=== PATIENT | female | born 1980 | race Caucasian/White ===

== ENCOUNTER 2017-08-04 14:14 | Inpatient (IN) | payer BC ==
--- OUTSIDE RECORDS SUMMARY | 2017-08-04 14:17 | XMS | Clinical Summary ---
:1980 Author Organization [facility] Address [address] [place] [address] Phone Care Team Providers Name Role Phone Dean Vazquez Primary Care Provider tel Allergies Active Allergy Reactions Severity Noted Date Comments Other 01/11/2017 K flex IV Contrast Propofol Hives 02/10/2017 And itching Vancomycin Hives 01/11/2017 Vomiting, hives Ondansetron Hcl Hives,GI Intolerance 01/11/2017 Itching, dizziness Iodine And Iodide Rash Low 02/26/2017 Per patient has Containing Products reaction to IV contrast, requires premedication with steroids and benadryl Current Medications Prescription Sig. Disp. Refills Start Date End Date Status linaclotide (LINZESS) Take 145 mcg by Active 145 mcg capsule mouth nightly. CREON 12,000-38,000 04/19/2017 Active -60,000 unit capsule,delayed release(DR/EC) capsule CONTOUR NEXT STRIPS TEST BLOOD 11 05/08/2017 Active strip test strips SUGAR QID insulin GLARGINE Inject 24 Units 6 pen 3 06/20/2017 06/20/2018 Active (LANTUS SOLOSTAR) 100 under the skin unit/mL injection nightly. (pen) sitaGLIPtin (JANUVIA) Take 1 tablet 90 tablet 3 06/20/2017 Active 100 MG tablet (100 mg total) by mouth daily. ondansetron (ZOFRAN) TK 1 T PO PRN 1 07/01/2017 Active 4 MG tablet pantoprazole TK 1 T PO BID 11 07/01/2017 Active (PROTONIX) 40 MG EC tablet insulin regular Inject 18 Units 40 mL 3 07/04/2017 07/04/2018 Active (HumuLIN R U-100) 100 under the skin unit/mL injection 3 (three) times a day before meals. insulin 3 month supply 270 Syringe 3 07/04/2017 Active syringe,safetyneedle 0.5 mL 30 gauge x 5/16" syringe Active Problems Problem Noted Date Diabetes mellitus associated with pancreatic disease 04/18/2017 Depressive disorder 03/24/2017 Anxiety disorder due to general medical condition with panic attack 03/24/2017 Hypomagnesemia 02/28/2017 Hypophosphatemia 02/25/2017 Hypokalemia 02/25/2017 Sepsis 02/25/2017 Hypocalcemia 02/25/2017 Agitation 02/22/2017 Post-operative pain 02/22/2017 Hypotension 02/22/2017 Respiratory insufficiency 02/22/2017 Electrolyte and fluid disorder 02/22/2017 Leukocytosis 02/22/2017 Seizure 02/22/2017 History of pancreatectomy 02/21/2017 Acute blood loss anemia 02/20/2017 Acute deep vein thrombosis (DVT) of brachial vein of left upper extremity 07/2017 Abdominal pain 02/09/2017 Nausea 02/09/2017 S/P cholecystectomy 02/09/2017 S/P splenectomy 02/09/2017 Constipation 02/09/2017 Pancreatic stones 02/09/2017 Chronic pancreatitis 01/11/2017 Last Assessment & Plan: Complicated history. She had abdominal pain and underwent emperic cholecystectomy without relief. 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 Had another bout of pain and had a PD stent placed, which migrated. She then had a distal pancreatectomy and splenectomy. Since then, she has had chronic pain with intermittent relief to pd stentingand celiac block. Weight is stable. It is not clear to me that she has chronic pancreatitis. Now with multiple stents placed, she may have stent related chronic changes. She does not have DM or maldigestion. I suspect her symptoms are secondary to functional abdominal pain with secondary pain from prior pancreas surgery. Will obtain MRI and plan for EUS to assess for minimal change CP. Total pancreatectomy is a consideration if she meets criteria, however, I am skeptical that imaging will reveal chronic pancreatitis Resolved Problems Problem Noted Date Resolved Date Chronic idiopathic constipation 01/11/2017 02/09/2017 Last Assessment & Plan: Long standing. Hard stools. Persist even off narcotics. 1bm per week. Will start linzess. Previously tried miralax with modest relief. Bloating symptom 01/11/2017 02/09/2017 Last Assessment & Plan: Long standing. Will give a trial of xifaxin and Align Encounters Date Type Specialty Care Team Description 07/05/2017 Telephone Internal Medicine Ani Shane 07/04/2017 Office Visit Endocrinology Christopher Fuentes Diabetes bren Cedillo MD associated with pancreatic disease (Primary Dx) 06/30/2017 Telephone Endocrinology Christopher Fuentes MD 06/20/2017 Office Visit Endocrinology Christopher Fuentes Diabetes mellitus MD Mamadou associated with pancreatic disease (Primary Dx) 06/16/2017 Telephone Internal Medicine Jamshid Dykes MA 05/12/2017 Procedure Pass Gastroenterology 05/11/2017 Telephone Gastroenterology Libertad Kellogg RN 05/09/2017 Telephone Gastroenterology Amanda Major MA 05/05/2017 Hospital Encounter Gastroenterology Rip Osborne Pain of upper OMD abdomen (Primary Dx) 05/05/2017 Anesthesia Event Gastroenterology Travis Blankenship MD 05/05/2017 Procedure Pass Gastroenterology 05/05/2017 Surgery Gastroenterology Rip Osborne EGD w/bx using cold MD Tomas forceps from Last 3 Months Family History Medical History Relation Name Comments Diabetes Father No Known Problems Mother Relation Name Status Comments Father Mother Social History Tobacco Use Types Packs/Day Years Used Date Never Smoker Smokeless Tobacco: Never Used Alcohol Use Drinks/Week oz/Week Comments No Sex Assigned at Date Recorded Not on file Last Filed Vital Signs Vital Sign Reading Time Taken Blood Pressure 134/88 07/04/2017 11:16 AM CDT Pulse 94 07/04/2017 11:16 AM CDT Temperature 36.9 C (98.4 F) 07/04/2017 11:16 AM CDT Respiratory Rate 34 05/05/2017 10:30 AM CDT Oxygen Saturation 99% 07/04/2017 11:16 AM CDT Inhaled Oxygen Concentration - - Weight 43 kg (94 lb 12.8 oz) 07/04/2017 11:16 AM CDT Height 157.5 cm (5' 2") 06/20/2017 11:20 AM CDT Body Mass Index 17.34 07/04/2017 11:16 AM CDT Plan of Treatment Date Type Specialty Care Team Description 09/19/2017 Office Visit Endocrinology Christopher Fuentes MD [address] [facility] [address] [place], [place] [id number] Health Maintenance Due Date Last Done Comments FOOT EXAM 1990 OPHTHALMOLOGY EXAM 1990 URINE MICROALBUMIN 1990 PAP SMEAR 2001 INFLUENZA VACCINE 06/13/2017 Implants Implanted Type Area Fire Investigation Lieutenant Device Expiration Model / Identifier Date Serial / Lot Bill Pancreatic Stent Set (Gepd-5-7) Stent, N/A: N/A [employer] - GEPD-5-7 / Implanted:Qty: 1 on 02/14/2017 by Kofi Galarza MD Biliary ENDOSCOPY / ([employer]) [id number] Stent Pncrtc Zimmon 5fr 6cm - [id number] Surgical N/A: N/A [employer] END[employer]COPY 03/29/2019 [id number] / Implanted:02/14/2017 (Quantity not on file) Stents / [id number] Procedures Procedure Name Priority Date/Time Associated Diagnosis Comments EGD w/bx using cold 05/05/2017 9:00 AM Acute epigastric pain forceps CDT from Last 3 Months Results Surgical pathology request (05/05/2017 9:59 AM) Component Value Ref Range Surgical pathology report See link below for PDF Lab Report Specimen Performing Laboratory [facility] DEPARTMENT OF PATHOLOGY AND GENOMIC MEDICINE [address] [place] [phone] POC glucose (05/05/2017 8:20 AM) Component Value Ref Range POC glucose 243(H) 65 - 99 mg/dL Comment: Meter ID: [id number] Exotic Dancer: Brandie Mendoza V Specimen Performing Laboratory [facility] DEPARTMENT OF PATHOLOGY AND GENOMIC MEDICINE [address] [place] [phone] from Last 3 Months Insurance Payer Benefit Plan / Group Subscriber ID Type Phone Address BCBS BCBS CHOICE PPO/FEDERAL EMPL PPO [id number] PPO
[2017-08-04 14:57] LABS: #Basophils 0.1 thou/uL (0.0-0.2); #Lymphocytes 3.1 thou/uL (1.20-3.40); #Monocytes 0.3 thou/uL (0.11-0.59); #Neutrophils 5.7 thou/uL (1.40-6.50); %Basophils 0.6 % (0.0-1.0); %Eosinophils 0.3 % (0.0-10.0); %Lymphocytes 33.9 % (21.0-51.0); %Monocytes 3.1 % (0.0-10.0); Hematocrit 40.6 % (36.0-47.0); Mean Platelet Volume 9.7 fL (7.4-10.4); Red Blood Cell (RBC) Count 4.65 mill/uL (4.20-5.40); White Blood Cell (WBC) Count 9.2 thou/uL (4.8-10.8)
[2017-08-04 15:13] LABS: ALT (SGPT) 56 U/L (8-55); AST (SGOT) 51 U/L (5-34); Alkaline Phosphatase 87 U/L (40-150); Anion Gap 23 mmol/L (10-20); BUN (Urea Nitrogen) 6 mg/dL (7.0-18.7); Bilirubin, Total 0.3 mg/dL (0.2-1.2); Calc. Creatinine Clearance 0 mL/min (70-130); Calcium 8.8 mg/dL (7.8-10.44); Carbon Dioxide 16 mmol/L (22-29); Chloride 91 mmol/L (98-107); Estimated GFR-MDRD 57; Globulin 3.1 g/dL (2.4-3.5); Lipase 4 U/L (8-78); Protein, Total 6.8 g/dL (6.0-8.3)
[2017-08-04] MEDS ORDERED: Pantoprazole 40 MG VIAL ONE (15:17)
[2017-08-04] MEDS ORDERED: Ondansetron HCl/PF 4 MG/2 ML Vial ONE ×2 (15:17→16:44)
[2017-08-04 15:29] LABS: Lactic Acid - Sepsis 1.6 mmol/L (0.5-2.2)
[2017-08-04 15:43] LABS: Troponin I Less than 0.010 ng/mL (< 0.028)
[2017-08-04] MEDS ORDERED: Insulin Regular 100 units/100 ml in NS IVPB ONE (15:45)
[2017-08-04 17:17] LABS: Anion Gap 9 mmol/L (-14-95); T. Carbon Dioxide 17.4 mmol/L (1.0-85.0); pH (Venous) 7.263 (7.35-7.45); vO2 Saturation-calc 34.1 % (0.0-100.0)
--- NOTE | 2017-08-04 18:24 | CT ---
CT OF THE ABDOMEN AND PELVIS WITHOUT IV CONTRAST: 08/04/17 COMPARISON: Prior CT of the abdomen without contrast dated 08/11/15 and MR of the abdomen dated 02/01/17. FINDINGS: ABDOMEN: The lung bases are clear. There is a small amount of pneumobilia seen within the left hepatic lobe. The gallbladder is surgica lly absent. There is stippled solid densities seen within the anterior pararenal space adjacent to t he second portion of the duodenum most consistent with patient's history of a pancreatic transplant. There is stippled calcifications within the transplant. [place] pancreatic tissue is no longer ident ified. No drainable fluid collection is evident. There is stable left renal cyst. No hydronephrosis is evident. No renal calculus is noted. The splee n is surgically absent. There are mild vascular calcifications noted involving the abdominal aorta. No free fluid or enlarged lymph nodes are evident. PELVIS: The bladder is normal appearing. There are multiple small phleboliths within the lower pelvis. There is a prominent amount of retained stool within the colon as well as the rectum. The appendix is not definitely identified. No free fluid is evident. The partially opacified small bowel is of normal c aliber. OSSEOUS STRUCTURES: No definite acute osseous abnormality is evident. There is mild scattered degenerative and osteoarth ritic change. IMPRESSION: 1. Postsurgical change of a pancreatic transplant, pancreatectomy, cholecystectomy and splenect mirela. 2. Small amount of pneumobilia is seen within the left hepatic lobe which is likely postprocedu ral in nature. 3. There is a prominent amount of retained stool within the colon and rectum. Recommend correla tion for constipation. 4. Nonvisualization of the appendix with surgical clips within the right lower quadrant of the abdomen may reflect surgical removal of the appendix. Recommend correlation with patient's history. POS: TOMER
[2017-08-04] MEDS ORDERED: Lorazepam 2 MG/ML VIAL ONE (18:55)
[2017-08-04] MEDS ORDERED: Dextrose 5 %-0.45 % NaCl 1,000 ML IV PRN (20:28)
[2017-08-04] MEDS ORDERED: NS 0.9% w/ 20 MEQ KCL 1,000 ML IV PRN ×2 (20:28)
[2017-08-04] MEDS ORDERED: Sodium Chloride 0.9% 1,000 ML IV PRN ×4 (20:28)
[2017-08-04] MEDS ORDERED: CCU Electrolyte Replacement 1 EACH IVPB ONE (20:28)
--- OUTSIDE RECORDS SUMMARY | 2017-08-04 20:28 | XMS | Clinical Summary ---
:1980 Author Organization [facility] Address [address] [place] [address] Phone Care Team Providers Name Role Phone [...] 09/19/2017 Office Visit Endocrinology Christopher Fuentes MD [address] [facility] [address] [place], [place] [phone] Health Maintenance Due Date Last Done Comments FOOT EXAM 1990 OPHTHALMOLOGY EXAM 1990 URINE MICROALBUMIN 1990 PAP SMEAR 2001 INFLUENZA VACCINE 06/13/2017 Implants Implanted Type Area Senior Java Developer Device Expiration Model / Identifier Date Serial / Lot Bill Pancreatic Stent Set (Gepd-5-7) Stent, N/A: N/A [employer] - GEPD-5-7 / Implanted:Qty: 1 on 02/14/2017 by Kofi Galarza MD Biliary ENDOSCOPY / ([employer]) [id number] Stent Pncrtc Zimmon 5fr 6cm - [id number] Surgical N/A: N/A [employer] ENDOSCOPY 03/29/2019 [id number] / Implanted:02/14/2017 (Quantity not on file) Stents / [id number] Procedures Procedure Name Priority Date/Time Associated Diagnosis Comments EGD w/bx using cold 05/05/2017 9:00 AM Acute epigastric pain forceps CDT from Last 3 Months Results Surgical pathology request (05/05/2017 9:59 AM) Component Value Ref Range Surgical pathology report See link below for PDF Lab Report Specimen Performing Laboratory [facility] DEPARTMENT OF PATHOLOGY AND GENOMIC MEDICINE [address] [place] [phone] POC glucose (05/05/2017 8:20 AM) Component Value Ref Range POC glucose 243(H) 65 - 99 mg/dL Comment: Meter ID: [id number] Academic Administrator: Brandie Mendoza V Specimen Performing Laboratory [facility] DEPARTMENT OF PATHOLOGY AND GENOMIC MEDICINE [address] [place] [id number] from Last 3 Months Insurance Payer Benefit Plan / Group Subscriber ID Type Phone Address BCBS BCBS CHOICE PPO/FEDERAL EMPL PPO [id number] PPO
[2017-08-04] MEDS ORDERED: Potassium Phosphate 12 MMOL in Sodium Chloride 0.9% 250 ML 250 ML IV PRN (20:32)
[2017-08-04] MEDS ORDERED: Potassium Chloride 40 MEQ in Premix Bag 1 BAG IVPB PRN (20:32)
[2017-08-04] MEDS ORDERED: Potassium Phosphate 15 MMOL in Sodium Chloride 0.9% 250 ML 250 ML IV PRN (20:32)
[2017-08-04] MEDS ORDERED: Potassium Phosphate 9 MMOL in Sodium Chloride 0.9% 100 ML IVPB PRN (20:32)
[2017-08-04] MEDS ORDERED: Potassium Chloride 20 MEQ TAB PO PRN (20:32)
[2017-08-04] MEDS ORDERED: Potassium Chloride 40 MEQ in Sodium Chloride 0.9% 250 ML 250 ML IVPB PRN (20:32)
[2017-08-04] MEDS ORDERED: Magnesium Oxide 400 MG TAB PO PRN ×2 (20:32)
[2017-08-04] MEDS ORDERED: CCU ELECTROLYTE REPLACEMENT PROTOCOL FS PRN (20:32)
[2017-08-04] MEDS ORDERED: Magnesium 2 GM/NS 0.9% 100 ML 2 GM in Premix Bag 1 BAG IVPB PRN (20:32)
[2017-08-04] MEDS ORDERED: Morphine Sulfate 2 MG/ML SYRINGE SLOW IVP PRN (20:33)
[2017-08-04] MEDS ORDERED: Ondansetron HCl/PF 4 MG/2 ML Vial SLOW IVP PRN (20:33)
[2017-08-04 21:24] LABS: Anion Gap 13 mmol/L (10-20); BUN (Urea Nitrogen) Less than 4 mg/dL (7.0-18.7); Calc. Creatinine Clearance 0 mL/min (70-130); Carbon Dioxide 20 mmol/L (22-29); Chloride 106 mmol/L (98-107); Estimated GFR-MDRD Greater than 90
[2017-08-04] MEDS: D5 1/2 NS w/20 mEq KCL 1,000 ML IV PRN (22:11)
--- NOTE | 2017-08-04 23:44 | HP ---
HISTORY OF PRESENT ILLNESS: Mrs. Alamo is 36-year-old woman. She came to the ER earlier today with complaint of abdominal pain and rectal bleeding. According to the patient, this problem started about 2 weeks ago, have been getting worse over a time. In the ER, she was evaluated and wa s found to be in DKA. She is being admitted for evaluation and management. She denied any fever. Denies coughing. Denies dysuria. PAST MEDICAL HISTORY: Remarkable for diabetes mellitus, she was diagnosed with insulin-requiring di abetes mellitus about 4 months ago. According to the patient, she described what appeared to be his tory of chronic pancreatitis complicating an ERCP with stent placement and later, she underwent panc reatectomy and also she had autologous islet cell transplant. She denies any history of hypertensio n. Denies heart disease. Denies lung disease. Denies liver disease. PAST SURGICAL HISTORY: Besides pancreatectomy and islet cell transplant, include splenectomy, appen dectomy, and also cholecystectomy. ALLERGIES: IV IODINE, PROPOFOL, and KEFLEX. SOCIAL HISTORY: She denies any history of cigarette smoking. Denies ETOH abuse. Denies drug abuse . FAMILY HISTORY: Reviewed and is not contributory. MEDICATIONS PRIOR TO ADMISSION: She was on [place], Protonix, and insulin. REVIEW OF SYSTEMS: GENERAL: Denies any fever. Admits to generalized weakness. HEENT: No headache, no ocular pain, no sore throat, no rhinorrhea, no earache, no epistaxis. NECK: No neck pain, no neck stiffness. CARDIOVASCULAR: No shortness of breath. No chest pain. PULMONARY: No coughing. GASTROINTESTINAL: Admits to abdominal pain and also rectal bleeding. She claims that she has been passing bright red stools for the last 2 weeks or so. GENITOURINARY: No dysuria, no hematuria. ENDOCRINOLOGY: No heat or cold intolerance. She admits to polyuria and polydipsia. MUSCULOSKELETAL: Denies arthralgia. HEMATOLOGY: Denies ecchymoses. SKIN: No rash. No itching. LYMPHATIC: No palpable lymphadenopathy, no painful lymphadenopathy. ALLERGIES: No hayfever. NEUROLOGIC: She claims that she had seizure twice; however, she has not been on medication. PSYCHIATRIC: She denies anxiety. Denies depression. PHYSICAL EXAMINATION: GENERAL: At the current time, she is alert, oriented, sick looking. VITAL SIGNS: Her latest vital signs show temperature of 98.1, pulse rate 121, respiratory rate 16, and blood pressure 116/81. HEENT: Head is normocephalic and atraumatic. Both her pupils are equal and reactive. Ears and nos e normal. Oral mucosa is dry. Pharyngeal area is clear. She has also very poor skin turgor. NECK: Supple. There is no distention of the jugular vein. No lymphadenopathy felt. Thyroid gland not palpable. There is no carotid bruit. CHEST: Symmetrical with regular S1, S2. LUNGS: Clear. ABDOMEN: Soft. Bowel sounds heard. I could not appreciate any organomegaly. She does have some t enderness on palpation of the left lower quadrant. Limbs are anatomically normal. EXTREMITIES: She has no edema of the lower extremities. NEUROLOGIC: Neurologically, she moves all extremities. LABORATORY DATA: Her CBC show a WBC of 9.2, hemoglobin of 12.3, hematocrit of 40.6, MCV of 87, and platelet of 419. Chemistry and electrolytes show sodium of 125, potassium of 5, chloride 91, CO2 16 , BUN 6, creatinine 1.08, glucose 726, calcium 8.8, AST 51, ALT 56, alkaline phosphatase 87, albumin 3.7, total protein 6.8, bilirubin 0.3, amylase is 37, lipase . Beta-hCG is negative, ketone i s positive. ASSESSMENT AND PLAN: This is a 36-year-old woman with previous autologous islet cell honeycutt splant, insulin requiring diabetes mellitus, who is being admitted with DKA. Please see orders.
[2017-08-05 01:03] LABS: Anion Gap 14 mmol/L (10-20); BUN (Urea Nitrogen) Less than 4 mg/dL (7.0-18.7); Calc. Creatinine Clearance 85 mL/min (70-130); Calcium 8.1 mg/dL (7.8-10.44); Carbon Dioxide 17 mmol/L (22-29); Chloride 106 mmol/L (98-107); Estimated GFR-MDRD Greater than 90
[2017-08-05 05:06] LABS: Anion Gap 11 mmol/L (10-20); BUN (Urea Nitrogen) Less than 4 mg/dL (7.0-18.7); Calc. Creatinine Clearance 91 mL/min (70-130); Calcium 7.9 mg/dL (7.8-10.44); Carbon Dioxide 18 mmol/L (22-29); Chloride 109 mmol/L (98-107); Estimated GFR-MDRD Greater than 90
[2017-08-05] MEDS: D5 1/2 NS w/20 mEq KCL 1,000 ML IV PRN (05:22)
[2017-08-05 05:41] LABS: #Basophils 0.1 thou/uL (0.0-0.2); #Eosinphils 0.1 thou/uL (0.0-0.7); #Lymphocytes 5.3 thou/uL (1.20-3.40); #Monocytes 0.7 thou/uL (0.11-0.59); #Neutrophils 6.8 thou/uL (1.40-6.50); %Basophils 0.7 % (0.0-1.0); %Eosinophils 0.9 % (0.0-10.0); %Lymphocytes 40.3 % (21.0-51.0); %Monocytes 5.6 % (0.0-10.0); Hematocrit 33.7 % (36.0-47.0); Mean Platelet Volume 9.2 fL (7.4-10.4); Red Blood Cell (RBC) Count 3.91 mill/uL (4.20-5.40)
[2017-08-05] MEDS ORDERED: DC Electrolyte Protocol FS ONE (09:12)
[2017-08-05] MEDS ORDERED: Pantoprazole 40 MG VIAL IVP SCH (09:15)
[2017-08-05] MEDS ORDERED: Ondansetron ODT 4 MG TAB PO PRN (09:16)
[2017-08-05] MEDS ORDERED: Senokot 8.6 MG TAB PO PRN (09:16)
[2017-08-05] MEDS ORDERED: Insulin Regular 300 UNITS/3 ML VIAL SC PRN (09:16)
[2017-08-05] MEDS ORDERED: Dextrose 50% Abboject 50 ML SYRINGE SLOW IVP PRN (09:16)
[2017-08-05] MEDS ORDERED: Dextrose 5% in Water 1,000 ML IV PRN (09:16)
[2017-08-05] MEDS ORDERED: Acetaminophen 650 MG Suppository PR PRN (09:16)
[2017-08-05] MEDS ORDERED: Nitroglycerin 0.4 MG TAB (25 Tab Bottle) PO PRN (09:16)
[2017-08-05] MEDS ORDERED: Diabetic Tussin 200 MG/10 ML UDCUP PO PRN (09:20)
[2017-08-05] MEDS ORDERED: Insulin Detemir 100 UNITS/ML 15 UNITS in Pre-Filled Syringe 1 EACH SC SCH ×2 (09:30→21:00)
[2017-08-05] MEDS: 1/2 NS w/KCL 20 mEq 1,000 ML IV SCH ×2 (10:00→19:08)
--- NOTE | 2017-08-05 10:02 | PRG ---
DATE OF SERVICE: 08/05/2017 SUMMARY: A 36-year-old female who was admitted yesterday evening with diabetic ketoacidosis. Her p resenting complaint to the emergency room was bright red blood per rectum. Please refer to the hist ory and physical. SUBJECTIVE: The patient continues to have abdominal discomfort mainly on the left side. She contin ues to have watery stool, which is red in color. There is no sample available; however. She denies any fever or chills. PHYSICAL EXAMINATION: VITAL SIGNS: Temperature 98.3, pulse of 92, respirations 20, blood pressure 112/70, and O2 saturati on 98% on room air. Intake of 4240 and output 2600. GENERAL: A 36-year-old female in mild distress due to abdominal discomfort. NECK: Supple. No JVD. LUNGS: Clear to auscultation bilaterally. No wheezing, rales or rhonchi. HEART: S1 and S2 present. Regular rate and rhythm. No rubs, gallops or murmurs. ABDOMEN: Soft. Mild tenderness on the left side, no rebound or guarding. No costovertebral angle tenderness. EXTREMITIES: No edema or calf tenderness. NEUROLOGIC: Grossly nonfocal. PSYCHIATRIC: Alert, awake, oriented x3, normal affect. Current medications were reviewed. IMAGIN. Telemetry monitoring by my review showed sinus rhythm. 2. CT scan of the abdomen noncontrast done in the emergency room by my review was negative for acut e findings. IMPRESSION: 1. Diabetic ketoacidosis. Her bicarbonate today morning is 18 with blood sugar of 137 on insulin d rip. We will transition her to subcutaneous insulin. We will repeat one more basic metabolic panel now along with magnesium and phosphorus. We will discontinue diabetic ketoacidosis protocol. We w ill also discontinue electrolyte protocol. We will change Accu-Cheks to a.c. and at bedtime. 2. Suspected gastrointestinal bleeding. We will repeat H\T\H. GI will be consulted. We will add proton pump inhibitors. Continue IV fluids. Clear liquids for now. 3. Acute abdominal discomfort of unclear etiology. Probably secondary to #1. We will continue mor phine for pain management. A 2 mg morphine was not sufficient for pain control. We will increase i t to 4 mg for the next 24 hours as needed every 4 hours. We will hold for lethargy, sedation, and r espiratory rate less than 10. 4. Dehydration secondary to #1. 5. Hyponatremia secondary to diabetic ketoacidosis. 6. Anemia, probably secondary to hemodilution versus gastrointestinal blood loss. 7. Metabolic acidosis secondary to diabetic ketoacidosis. Her lactic acid was normal. 8. Abnormal liver function tests of unclear etiology. 9. Suspected mild protein calorie malnutrition. 10. Plan of care was discussed with the patient and she stated understanding.
[2017-08-05 10:36] LABS: Anion Gap 12 mmol/L (10-20); BUN (Urea Nitrogen) Less than 4 mg/dL (7.0-18.7); BUN/Creatinine Ratio 7.14; Calc. Creatinine Clearance 103 mL/min (70-130); Carbon Dioxide 18 mmol/L (22-29); Chloride 108 mmol/L (98-107); Estimated GFR-MDRD Greater than 90; Magnesium 1.5 mg/dL (1.6-2.6); Phosphorus 3.3 mg/dL (2.3-4.7)
[2017-08-05] MEDS ORDERED: Lorazepam 0.5 MG TAB PO PRN (11:30)
[2017-08-05] MEDS ORDERED: Magnesium Sulfate 2 GM in Sodium Chloride 0.9% 100 ML IVPB SCH (11:30)
[2017-08-05] MEDS ORDERED: Magnesium 2 GM/NS 0.9% 100 ML 2 GM in Premix Bag 1 BAG IVPB SCH (12:00)
[2017-08-05] MEDS ORDERED: GoLYTELY 4,000 ml Bottle PO SCH (21:15)
[2017-08-05] MEDS: Pantoprazole 40 MG VIAL IVP SCH (21:47)
[2017-08-05] MEDS: Insulin Detemir 100 UNITS/ML 20 UNITS in Pre-Filled Syringe 1 EACH SC SCH (21:53)
[2017-08-05 22:40] LABS: Bilirubin Negative (Negative); Blood, Urine Small (Negative); Glucose, Urine (Dipstick) Negative (Negative); Ketone, Urine Negative (Negative); Nitrite Negative (Negative); Protein, Urine (Dipstick) Negative (Neg-Trace); Urobilinogen 0.2 mg/dL (0.2-1.0)
[2017-08-05 22:41] LABS: Bacteria/HPF 2+ HPF (None Seen); Hyaline Casts/LPF 0-3 HYALINE CAST LPF (0-3 Hyaline); Squamous Epithelial 0-3 HPF (0-3); WBC/HPF 0-3 HPF (0-3)
--- NOTE | 2017-08-06 00:34 | CON ---
DATE OF CONSULTATION: 08/05/2017 CHIEF COMPLAINT: Abdominal pain. HISTORY OF PRESENT ILLNESS: Ms. Blackwood is a 36-year-old woman, who underwent complete pancreatectomy and islet cell transplant in 02/2017. She was in the hospital for 2 months following that. Prior to that, she had had chronic pancreatitis. She had a distal pancreatectomy back in 2009. She has h ad prior ERCP and pancreatic stents. Since she was discharged from the hospital, she is improved. She states that she has been pain-free for the last month and a half and has no longer had home heal th having to visit her. She has been off pain medications for the last month and a half. Two weeks ago, she had onset of left-sided to diffuse abdominal pain. This is a constant aching pain. This has worsened, so that she came to the hospital for further care yesterday. She has been requiring m orphine to control her pain and asking for higher doses more frequently. CT scan of the abdomen and pelvis in the ER showed a large amount of stool throughout the colon. No other acute inflammatory process was noted. She was noted to be DKA and she was started on insulin drip and has since been d iscontinued with resolution of the DKA and she is now on Levemir with sliding scale insulin. She re ports having up to 15 small volume greasy stools per day. She sees red blood that seems to flow to the surface. She has been taking Creon with her meals. The stool itself has been yellowish-brown. She does have nausea or vomiting. PAST MEDICAL HISTORY: Chronic pancreatitis, idiopathic. She has required pancreatic stenting in th e past. She had partial pancreatectomy in 2009 and complete prostatectomy with islet cell transplan t in 02/2017. She has had a colonoscopy between 2009 and 2014, which she reports was negative. PAST SURGICAL HISTORY: Appendectomy, cholecystectomy, splenectomy, pancreatectomy, and islet cell t ransplant. FAMILY HISTORY: Negative for GI malignancy and pancreatitis. SOCIAL HISTORY: No alcohol or smoking or drugs. ALLERGIES: IODINE, PROPOFOL, KEFLEX. OUTPATIENT MEDICATIONS: Creon, Protonix, insulin. She has been on insulin since her pancreatectomy . CURRENT INPATIENT MEDICATIONS: Insulin, folic acid, and morphine. REVIEW OF SYSTEMS: Negative x10 systems reviewed except as stated in the history of present illness . PHYSICAL EXAMINATION: VITAL SIGNS: Temperature 98.1, pulse 102, blood pressure 121/78. GENERAL: She is in no acute distress. She is alert and oriented x3. HEENT: Eyes have no scleral icterus. Oropharynx is clear without lesions. NECK: No cervical or supraclavicular lymphadenopathy. LUNGS: Clear to auscultation bilaterally. HEART: Regular rate and rhythm without murmur. ABDOMEN: Soft. There is no guarding. Bowel sounds are present. She does report tenderness in the left abdomen; however, when she was distracted and talking, otherwise I could palpate freely. EXTREMITIES: No lower extremity edema. RECTAL: Reveals light brown stool in the rectal vault, which is soft. IMPRESSION: 1. Abdominal pain. This is likely secondary to constipation. She has a large amount of stool thro ughout the colon noted by CT scan. The stool is soft. 2. Fifteen small volume stools per day with hematochezia reported. Her stool itself is light brown by rectal exam. She may be underdosed on the Creon. She is having greasy stools. We will need to rule out Clostridium difficile or colitis. 3. History of chronic pancreatitis, status post pancreatectomy. She likely has significant opioid tolerance. Currently, her pain is likely from the constipation and opioids will just decrease colon ic motility. I would try to minimize opioids as possible. RECOMMENDATIONS: 1. We will give GoLYTELY to clear the constipation. I would follow through with clear liquid diet tomorrow and if we are able to clean her out further with additional GoLYTELY as needed, then we cou ld potentially perform colonoscopy on Monday. She is very resistant to accepting a clear liquid t. Her family brought her solid food this evening. 2. Check stool for C. diff.
[2017-08-06] MEDS: 1/2 NS w/KCL 20 mEq 1,000 ML IV SCH ×3 (02:07→20:36)
[2017-08-06] MEDS: Insulin Regular 300 UNITS/3 ML VIAL SC PRN ×2 (06:04→12:48)
[2017-08-06 06:36] LABS: Anion Gap 13 mmol/L (10-20); BUN (Urea Nitrogen) Less than 4 mg/dL (7.0-18.7); BUN/Creatinine Ratio 6.15; Calc. Creatinine Clearance 86 mL/min (70-130); Calcium 8.4 mg/dL (7.8-10.44); Carbon Dioxide 24 mmol/L (22-29); Chloride 104 mmol/L (98-107); Estimated GFR-MDRD Greater than 90; Magnesium 1.6 mg/dL (1.6-2.6); Phosphorus 3.4 mg/dL (2.3-4.7)
[2017-08-06] MEDS: Insulin Detemir 100 UNITS/ML 20 UNITS in Pre-Filled Syringe 1 EACH SC SCH ×2 (09:51→20:38)
[2017-08-06] MEDS: Folic Acid 1 MG TAB PO SCH (09:52)
[2017-08-06] MEDS: Pantoprazole 40 MG VIAL IVP SCH ×2 (11:22→20:37)
--- NOTE | 2017-08-06 12:15 | PDOC.PN ---
- Subjective Encounter Start Date: 08/06/17 Encounter Start Time: 11:40 Subjective: Feels anxious.. - Objective Resuscitation Status: Resuscitation Status FULL:Full Resuscitation Vital Signs & Weight: Vital Signs (12 hours) Temp Pulse Resp BP BP Pulse Ox 08/06/17 07:59 98.2 F 82 16 08/06/17 07:11 96 08/06/17 07:06 98.3 F 92 20 119/76 99 08/06/17 03:55 98.2 F 82 16 100/69 97 Weight Admit Weight 103 lb 4.8 oz Weight 100 lb 9.6 oz I&O: 08/05/17 08/06/17 08/07/17 06:59 06:59 06:59 Intake Total 4240 2592 Output Total 2600 1800 Balance 1640 792 Result Diagrams: 08/06/17 05:51 08/06/17 05:51 Additional Labs: Accuchecks 08/06/17 08/06/17 08/05/17 11:54 06:03 20:38 POC Glucose 327 H 286 H 161 H 08/05/17 16:46 POC Glucose 103 Phys Exam - Physical Examination HEENT: sclera anicteric Neck: no JVD Respiratory: clear to auscultation bilateral Cardiovascular: RRR Gastrointestinal: soft, non-tender, no distention Musculoskeletal: no edema Neurological: moves all 4 limbs Psychiatric: A&O x 3 Dx/Plan (1) DKA (diabetic ketoacidoses) Code(s): E13.10 - OTH DIABETES MELLITUS WITH KETOACIDOSIS WITHOUT COMA Status : Acute Plan: Increase Levemir. Comment: not in DKA now.. But BS still high. (2) GI bleeding Code(s): K92.2 - GASTROINTESTINAL HEMORRHAGE, UNSPECIFIED Status: Acute Plan: for colonoscopy. Comment: Hb/Hct stable. - Plan -: Increase basal insulin. -: F/u with GI. * .
[2017-08-06] MEDS ORDERED: Lorazepam 0.5 MG TAB PO SCH (12:30)
--- NOTE | 2017-08-06 18:46 | PRG ---
DATE OF SERVICE: 08/06/2017 SUBJECTIVE: Her pain seems to be better controlled today. She is still having greasy stools, but n ot liquidy stools. She states that she is drinking the GoLYTELY; however, she will not allow the nu rses to review her stool and the nurses have not actually observed her drinking the GoLYTELY. The v olume in the jug is decreased. OBJECTIVE: VITAL SIGNS: Temperature 98.2, pulse 92, blood pressure 113/78. GENERAL: She is in no acute distress. LUNGS: Clear to auscultation bilaterally. HEART: Regular rate and rhythm. ABDOMEN: Soft. She reports tenderness in the left lower quadrant. There is no guarding. Bowel so unds are active. EXTREMITIES: No lower extremity edema. LABORATORY DATA: Creatinine 0.65, albumin 2.8. White blood cell count 13.0, hemoglobin 10.3, plate lets 341. IMPRESSION: 1. Abdominal pain and constipation. She had a large amount of stool noted throughout the colon by CT scan. She has soft, greasy stools which she likely has fat malabsorption associated with her cardoza createctomy. She is likely underdosed on the Creon. Clostridium diff stool sample has been request ed; however, there are no results she had, the patient has been reluctant to provide a sample. 2. History of chronic pancreatitis, status post pancreatectomy. 3. Diabetic ketoacidosis on presentation which has resolved. She is on insulin. 4. Hematochezia. RECOMMENDATIONS: 1. She is receiving GoLYTELY to clear the constipation for the abdominal pain as well as clear her colon for colonoscopy planned for tomorrow. The colonoscopy is to evaluate the rectal bleeding. 2. Await stool studies as well.
[2017-08-06] MEDS: Ondansetron HCl/PF 4 MG/2 ML Vial IVP PRN (20:36)
[2017-08-07] MEDS ORDERED: GoLYTELY 4,000 ml Bottle PO SCH (04:00)
[2017-08-07] MEDS: 1/2 NS w/KCL 20 mEq 1,000 ML IV SCH ×2 (04:17→13:51)
[2017-08-07 05:43] LABS: Hematocrit 35.3 % (36.0-47.0)
[2017-08-07 05:59] LABS: Anion Gap 14 mmol/L (10-20); BUN (Urea Nitrogen) 4 mg/dL (7.0-18.7); BUN/Creatinine Ratio 7.02; Calc. Creatinine Clearance 98 mL/min (70-130); Calcium 8.7 mg/dL (7.8-10.44); Carbon Dioxide 26 mmol/L (22-29); Chloride 102 mmol/L (98-107); Estimated GFR-MDRD Greater than 90; Phosphorus 3.9 mg/dL (2.3-4.7)
--- NOTE | 2017-08-07 09:22 | PDOC.PN ---
- Subjective Encounter Start Date: 08/07/17 Encounter Start Time: 09:21 Patient seen and examined. No new complaints. No overnight events feels better colonscopy today. No N/V - Objective Resuscitation Status: Resuscitation Status FULL:Full Resuscitation MAR Reviewed: Yes Vital Signs & Weight: Vital Signs (12 hours) Temp Pulse Resp BP Pulse Ox 08/07/17 08:00 98.3 F 88 16 101/79 99 08/07/17 03:45 98.0 F 93 16 104/68 99 08/07/17 00:00 98.3 F 96 18 107/87 98 Weight Admit Weight 103 lb 4.8 oz Weight 100 lb 9.6 oz I&O: 08/06/17 08/07/17 08/08/17 06:59 06:59 06:59 Intake Total 2592 7900 Output Total 1800 Balance 792 7900 Result Diagrams: 08/07/17 05:04 08/07/17 05:04 Additional Labs: Accuchecks 08/07/17 08/07/17 08/06/17 06:01 01:59 20:36 POC Glucose 116 H 176 H 126 H 08/06/17 08/06/17 16:56 11:54 POC Glucose 119 H 327 H Phys Exam - Physical Examination Constitutional: NAD HEENT: sclera anicteric Neck: supple Respiratory: no wheezing, no rales Cardiovascular: RRR Gastrointestinal: soft Musculoskeletal: no edema Neurological: non-focal, moves all 4 limbs Lymphatic: no nodes Dx/Plan (1) DKA (diabetic ketoacidoses) Code(s): E13.10 - OTH DIABETES MELLITUS WITH KETOACIDOSIS WITHOUT COMA Status : Acute Comment: not in DKA now.. But BS still high. (2) GI bleeding Code(s): K92.2 - GASTROINTESTINAL HEMORRHAGE, UNSPECIFIED Status: Acute Comment: Hb/Hct stable. (3) Chronic pancreatitis Code(s): K86.1 - OTHER CHRONIC PANCREATITIS Status: Chronic - Plan cont current plan of care, plan discussed w/ family * . colonoscopy today. Monitor labs. AM labs DKA resolved continue insulin and monitor BG. Appreciate GI input.
[2017-08-07] MEDS: Folic Acid 1 MG TAB PO SCH (10:36)
--- NOTE | 2017-08-07 11:30 | PRG ---
DATE OF CONSULTATION: 08/07/2017 SUBJECTIVE: Ms. Alamo still had some stable abdominal pain. She appears comfortable. She states t hat she is drinking the GoLYTELY and the volume of the GoLYTELY bottle seems to be decreasing; howev er, it is highly questionable whether or not she is actually drinking it. She had solid food in fro nt of her yesterday that her boyfriend brought in and patient states that she did not drink any of i t; however, the nurse walked in twice while she was chewing. OBJECTIVE: VITAL SIGNS: Temperature 98.3, pulse 88, blood pressure 101/79. GENERAL: She is in no acute distress, awake and alert. LUNGS: Clear to auscultation bilaterally. HEART: Regular rate and rhythm. ABDOMEN: Soft. There is no guarding. Bowel sounds are present. There is some tenderness in the l eft side. Bowel sounds are present. EXTREMITIES: No lower extremity edema. LABORATORY DATA: Her hemoglobin remains stable at 10.9. Creatinine 0.57, glucose 125. IMPRESSION: 1. Abdominal pain and constipation. She had a large amount of stool throughout the colon by CT sca n. She has had soft greasy stools likely with fat malabsorption associated with her pancreatectomy. C. diff was negative. Her abdominal pain appears to be functional. She likely has constipation a s a contributing factor for this. 2. Hematochezia. The patient reported red blood in the stool; however, she has not had overt bleed ing here in the hospital. Her hemoglobin remained stable; however, she is anemic. 3. History of chronic pancreatitis, status post pancreatectomy. 4. Diabetic ketoacidosis on presentation which has resolved. She is on insulin. She had prior isl et cell transplant. RECOMMENDATIONS: 1. If she ultimately takes her prep and is compliant with this then we can follow through with colo noscopy tomorrow. Otherwise, with the lack of overt bleeding and noncompliance and a stable hemoglo bin this could potentially be done as an outpatient. We will continue to try to push the GoLYTELY f or now. Overall, it appears that she has just not really been cooperative with doing this and has c ontinued to eat some solid food potentially. 2. She should be able to taper back or off of the IV opioids given functional abdominal pain and co nstipation. 3. Recommend increasing her dose of Creon once she goes back on a solid diet. 4. Check iron studies.
[2017-08-07 12:04] LABS: Iron 23 ug/dL (50-170)
[2017-08-07] MEDS: Insulin Detemir 100 UNITS/ML 20 UNITS in Pre-Filled Syringe 1 EACH SC SCH ×2 (13:49→21:02)
[2017-08-07] MEDS: Pantoprazole 40 MG VIAL IVP SCH ×2 (13:50→19:57)
[2017-08-07] MEDS: Acetaminophen 325 MG TAB PO PRN (16:26)
[2017-08-08 06:23] LABS: Anion Gap 15 mmol/L (10-20); BUN (Urea Nitrogen) 4 mg/dL (7.0-18.7); Calc. Creatinine Clearance 108 mL/min (70-130); Calcium 8.8 mg/dL (7.8-10.44); Carbon Dioxide 27 mmol/L (22-29); Chloride 102 mmol/L (98-107); Estimated GFR-MDRD Greater than 90
[2017-08-08 06:40] LABS: Hematocrit 37.7 % (36.0-47.0); Hypochromia MODERATE=16-30 cells (100X) (0-5/hpf); Mean Platelet Volume 10.3 fL (7.4-10.4); Neutrophil 34 % (42-75); Reactive Lymphocytes 1 % (0-10); Red Blood Cell (RBC) Count 4.39 mill/uL (4.20-5.40); Toxic Granulation SLIGHT
[2017-08-08] MEDS: Folic Acid 1 MG TAB PO SCH (09:38)
[2017-08-08] MEDS: Pantoprazole 40 MG VIAL IVP SCH ×2 (10:06→21:16)
--- NOTE | 2017-08-08 12:14 | PDOC.PN ---
- Subjective Encounter Start Date: 08/08/17 Encounter Start Time: 12:13 Patient seen and examined. No new complaints. No overnight events. feels good. No N/V or abd pain. No chest pain. - Objective Resuscitation Status: Resuscitation Status FULL:Full Resuscitation Vital Signs & Weight: Vital Signs (12 hours) Temp Pulse Resp BP Pulse Ox 08/08/17 07:34 98.3 F 68 18 08/08/17 07:26 95 08/08/17 03:55 98.3 F 68 18 98/52 L 95 Weight Admit Weight 103 lb 4.8 oz Weight 100 lb 9.6 oz I&O: 08/07/17 08/08/17 08/09/17 06:59 06:59 06:59 Intake Total 7900 1080 Balance 7900 1080 Result Diagrams: 08/08/17 05:01 08/08/17 05:01 Additional Labs: Accuchecks 08/08/17 08/08/17 08/08/17 11:02 06:52 05:44 POC Glucose 139 H 98 70 08/08/17 08/07/17 08/07/17 00:52 20:37 16:20 POC Glucose 94 263 H 253 H Phys Exam - Physical Examination Constitutional: NAD HEENT: sclera anicteric Neck: supple Respiratory: no wheezing, no rales Cardiovascular: RRR Gastrointestinal: soft Musculoskeletal: no edema Neurological: non-focal, moves all 4 limbs Psychiatric: normal affect, A&O x 3 Skin: no rash Dx/Plan (1) DKA (diabetic ketoacidoses) Code(s): E13.10 - OTH DIABETES MELLITUS WITH KETOACIDOSIS WITHOUT COMA Status : Acute Comment: not in DKA now.. But BS still high. (2) GI bleeding Code(s): K92.2 - GASTROINTESTINAL HEMORRHAGE, UNSPECIFIED Status: Acute Comment: Hb/Hct stable. (3) Chronic pancreatitis Code(s): K86.1 - OTHER CHRONIC PANCREATITIS Status: Chronic - Plan plan discussed w/ family * . colonscopy today. Labs stable. She wants to go home. Left message with her transplant team at [place] and not gotten any calls back yet. f/u with GI.
[2017-08-08] MEDS: Insulin Detemir 100 UNITS/ML 20 UNITS in Pre-Filled Syringe 1 EACH SC SCH ×2 (14:30→21:14)
[2017-08-08] MEDS ORDERED: Midazolam HCl 5 mg/5 ml Vial ONE (16:24)
[2017-08-08] MEDS: Insulin Regular 300 UNITS/3 ML VIAL SC PRN (21:15)
--- NOTE | 2017-08-09 00:25 | OP ---
PREOPERATIVE DIAGNOSES: 1. Chronic constipation. 2. Hematochezia. POSTOPERATIVE DIAGNOSES: 1. Redundant colon. 2. Internal hemorrhoids, but no lesions. 3. Hematochezia, likely related to constipation and straining. RECOMMENDATION: Resume low fat diet and pancreatic enzymes. This patient has been on narcotic pain medicine. She seems to be on a bowel regimen with MiraLax and Senokot or one of the new medicine, which has been developed for narcotic-induced constipation. PROCEDURE IN DETAIL: After the patient was informed of the risks, benefits, possible complications of endoscopy including perforation, bleeding, reaction to medication, and aspiration, informed conse nt was obtained. The endoscope was advanced through and rectal exam was performed which was normal. The endoscope was advanced through the anal canal to the cecum and identified the cecum, the appen diceal orifice and the ileocecal valve. The terminal ileum was entered and found to be normal. The colon was full of liquid stool, which was all suctioned away about 2 liters were it was then irriga mary away. The prep was very poor. No polyps, lesions or masses were seen. Rectal exam revealed no abnormalities, no polyps, lesions or strictures or masses were seen. No colitis was seen. The sco pe was removed. The patient tolerated the procedure well with no complications. The patient return ed to recovery room, then brought to the ICU in stable condition.
--- NOTE | 2017-08-09 00:41 | DIS ---
DATE OF ADMISSION: 08/04/2017 DATE OF DISCHARGE: 08/08/2017 DISCHARGE DIAGNOSES: 1. Diabetic ketoacidosis, resolved. 2. 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 3. Abdominal pain, status post colonoscopy today. 4. Chronic pancreatitis. CONSULTATIONS: Dr. Britt from GI. PROCEDURES: Colonoscopy. HOSPITAL COURSE: This is a 36-year-old female with history of islet cell transplant after pancreate ctomy from trauma, came to the hospital with abdominal pain and was found to be DKA. She was also h aving rectal bleeding. GI was consulted. Our plan is to do colonoscopy today and plan is to discha rge after colonoscopy if it is normal. Patient wants to go home. Patient's glucose is controlled a nd acidosis is corrected, anion gap is closed. She is feeling better. I did talk with her endocrin ologist in [place], , and he is willing to follow up with her in a week and no other sugges tions reported. DISCHARGE DISPOSITION: Home. CONDITION ON DISCHARGE: Fair. DISCHARGE MEDICATIONS: She will continue the same medicines at home. She is on a sliding scale ins ulin and also on Lantus, p.o. t.i.d., Protonix 40 mg daily. DISCHARGE FOLLOWUP: Follow up with her primary care physician in 1 week, follow up with Endocrinolo gy in 1-2 weeks.
[2017-08-09] MEDS: Insulin Regular 300 UNITS/3 ML VIAL SC PRN ×3 (06:36→21:09)
[2017-08-09] MEDS: Insulin Detemir 100 UNITS/ML 20 UNITS in Pre-Filled Syringe 1 EACH SC SCH (08:02)
[2017-08-09] MEDS: Folic Acid 1 MG TAB PO SCH (08:02)
[2017-08-09] MEDS: Pantoprazole 40 MG VIAL IVP SCH ×2 (08:02→20:09)
--- NOTE | 2017-08-09 09:50 | PDOC.PN ---
- Subjective Encounter Start Date: 08/09/17 Encounter Start Time: 09:49 Subjective: Abdominal pain worse today -: No nausea -: No f/c - Objective Resuscitation Status: Resuscitation Status FULL:Full Resuscitation MAR Reviewed: Yes Vital Signs & Weight: Vital Signs (12 hours) Temp Pulse Resp BP BP Pulse Ox 08/09/17 08:00 98.5 F 74 16 98 08/09/17 07:10 98.5 F 74 16 98/63 98 08/09/17 06:59 94 L 08/09/17 04:00 98.3 F 69 18 110/69 97 08/09/17 00:00 99.0 F 83 18 122/74 100 Weight Admit Weight 103 lb 4.8 oz Weight 100 lb 9.6 oz I&O: 08/08/17 08/09/17 08/10/17 06:59 06:59 06:59 Intake Total 1080 1480 Balance 1080 1480 Result Diagrams: 08/08/17 05:01 08/08/17 05:01 Additional Labs: Accuchecks 08/09/17 08/09/17 08/08/17 05:52 04:07 20:37 POC Glucose 151 H 203 H 257 H 08/08/17 08/08/17 16:27 11:02 POC Glucose 221 H 139 H Phys Exam - Physical Examination Constitutional: NAD HEENT: moist MMs, sclera anicteric Neck: no nodes, no JVD Respiratory: no rales, no rhonchi Cardiovascular: no significant murmur, no rub Gastrointestinal: soft, no distention generalized tenderness Neurological: non-focal, moves all 4 limbs Psychiatric: normal affect Skin: no rash, normal turgor Dx/Plan (1) DKA (diabetic ketoacidoses) Code(s): E13.10 - OTH DIABETES MELLITUS WITH KETOACIDOSIS WITHOUT COMA Status : Acute (2) GI bleeding Code(s): K92.2 - GASTROINTESTINAL HEMORRHAGE, UNSPECIFIED Status: Acute (3) Chronic pancreatitis Code(s): K86.1 - OTHER CHRONIC PANCREATITIS Status: Chronic - Plan GI bleed and h/o chronic pancreatitis * appreciate GI input - s/p colonoscopy on 08-08-17 revealed internal hemorrhoids (bleeding likely 2/2 straining in the setting of hemorrhoids) * prn analgesics * check labs in AM DM2 * increase levemir to 21 units BID * abdominal pain worse today - increase meds to q4h prn * f/u accu checks
[2017-08-09] MEDS: Acetaminophen 325 MG TAB PO PRN (16:24)
[2017-08-09 19:25] VITALS: BMI 18.6
[2017-08-09] MEDS ORDERED: Insulin Detemir 100 UNITS/ML 15 UNITS in Pre-Filled Syringe 1 EACH SC SCH (21:00)
[2017-08-09] MEDS ORDERED: Insulin Detemir 100 UNITS/ML 21 UNITS in Pre-Filled Syringe 1 EACH SC SCH (21:00)
--- NOTE | 2017-08-10 00:33 | PRG ---
DATE OF SERVICE: 08/09/2017 SUBJECTIVE: Ms. Alamo feels better today. She still has some abdominal pain; however, this is impr yina overall. OBJECTIVE: VITAL SIGNS: Temperature 98.4, pulse 91, blood pressure 119/71. GENERAL: She is in no acute distress. She is awake and alert. LUNGS: Clear to auscultation bilaterally. HEART: Regular rate and rhythm. ABDOMEN: Soft. It is minimally tender in the left lower abdomen without guarding. Bowel sounds ar e present. EXTREMITIES: No lower extremity edema. LABORATORY DATA: Her white blood cell count is 7.0. IMPRESSION: 1. Chronic functional abdominal pain. This has been more intermittent since her pancreatectomy. S he had a negative colonoscopy yesterday. 2. Diabetic ketoacidosis and insulin-dependent diabetes, status post islet cell transplant, which a ppears to have failed. RECOMMENDATIONS: 1. Wean the opioids off. We want to avoid opioid pain medication for chronic functional abdominal pain. 2. Anticipate discharge home tomorrow. I will sign off. Please call if GI can be of assistance. 3. If she has recurrence steatorrhea, then she should follow up in GI clinic to adjust her dose of pancreatic enzymes. She does report having diarrhea, she does not take her [facility], but otherwise is more on the constipated side in general.
[2017-08-10 03:42] LABS: #Eosinphils 0.1 thou/uL (0.0-0.7); #Lymphocytes 3.7 thou/uL (1.20-3.40); #Monocytes 0.6 thou/uL (0.11-0.59); #Neutrophils 4.5 thou/uL (1.40-6.50); %Basophils 0.3 % (0.0-1.0); %Lymphocytes 41.8 % (21.0-51.0); %Monocytes 6.9 % (0.0-10.0); Hematocrit 34.7 % (36.0-47.0); Mean Platelet Volume 9.2 fL (7.4-10.4); Red Blood Cell (RBC) Count 4.04 mill/uL (4.20-5.40)
[2017-08-10 04:01] LABS: Anion Gap 12 mmol/L (10-20); BUN (Urea Nitrogen) 8 mg/dL (7.0-18.7); Calc. Creatinine Clearance 93 mL/min (70-130); Calcium 8.4 mg/dL (7.8-10.44); Carbon Dioxide 26 mmol/L (22-29); Chloride 105 mmol/L (98-107); Estimated GFR-MDRD Greater than 90; Magnesium 1.5 mg/dL (1.6-2.6)
[2017-08-10] MEDS: Ondansetron HCl/PF 4 MG/2 ML Vial IVP PRN ×3 (04:19→20:22)
--- NOTE | 2017-08-10 07:23 | PDOC.PN ---
- Subjective Encounter Start Date: 08/10/17 Encounter Start Time: 07:22 Subjective: Abdominal pain stable -: Feeling very anxious -: No f/c - Objective Resuscitation Status: Resuscitation Status FULL:Full Resuscitation Vital Signs & Weight: Vital Signs (12 hours) Temp Pulse Resp BP BP Pulse Ox 08/10/17 04:00 97.8 F 85 16 135/85 100 08/09/17 23:39 98.2 F 80 16 120/67 98 08/09/17 19:42 96.5 F L 91 18 08/09/17 19:23 96.5 F L 91 18 119/71 98 Weight Admit Weight 103 lb 4.8 oz Weight 101 lb 12.8 oz I&O: 08/09/17 08/10/17 08/11/17 06:59 06:59 06:59 Intake Total 2560 Balance 2560 Result Diagrams: 08/10/17 03:26 08/10/17 03:26 Additional Labs: Accuchecks 08/10/17 08/09/17 08/09/17 05:50 19:52 16:07 POC Glucose 55 L* 357 H 183 H 08/09/17 10:13 POC Glucose 81 Phys Exam - Physical Examination Constitutional: NAD HEENT: moist MMs, sclera anicteric Neck: no nodes, no JVD Respiratory: no wheezing, no rales, no rhonchi Cardiovascular: no significant murmur, no rub Gastrointestinal: soft, positive bowel sounds mild generalized tenderness Neurological: non-focal, moves all 4 limbs Psychiatric: normal affect Skin: no rash, normal turgor Dx/Plan (1) DKA (diabetic ketoacidoses) Code(s): E13.10 - OTH DIABETES MELLITUS WITH KETOACIDOSIS WITHOUT COMA Status : Acute (2) GI bleeding Code(s): K92.2 - GASTROINTESTINAL HEMORRHAGE, UNSPECIFIED Status: Acute (3) Chronic pancreatitis Code(s): K86.1 - OTHER CHRONIC PANCREATITIS Status: Chronic - Plan GI bleed and h/o chronic pancreatitis * appreciate GI input - s/p colonoscopy on 08-08-17 revealed internal hemorrhoids (bleeding likely 2/2 straining in the setting of hemorrhoids) * prn analgesics * check labs in AM DM2 * decrease levemir to 19 units BID 2/2 hypoglycemia this morning * abdominal pain stable * f/u accu checks Anxiety * start ativan 0.25mg daily prn Dispo: Home tomorrow if blood sugars improved.
[2017-08-10] MEDS ORDERED: Lorazepam 0.5 MG TAB PO PRN (07:24)
[2017-08-10] MEDS: Pantoprazole 40 MG VIAL IVP SCH ×2 (08:22→20:26)
[2017-08-10] MEDS: Folic Acid 1 MG TAB PO SCH (08:23)
[2017-08-10] MEDS: INSULIN DETEMIR SC SCH ×2 (11:38→20:22)
[2017-08-10] MEDS: PRE FILLED SC SCH ×2 (11:38→20:22)
[2017-08-10] MEDS: Insulin Regular 300 UNITS/3 ML VIAL SC PRN (16:28)
[2017-08-11 04:26] LABS: Anion Gap 15 mmol/L (10-20); BUN (Urea Nitrogen) 8 mg/dL (7.0-18.7); Calc. Creatinine Clearance 81 mL/min (70-130); Calcium 8.6 mg/dL (7.8-10.44); Carbon Dioxide 23 mmol/L (22-29); Chloride 99 mmol/L (98-107); Estimated GFR-MDRD Greater than 90; Magnesium 1.8 mg/dL (1.6-2.6)
[2017-08-11 04:47] LABS: Hematocrit 35.6 % (36.0-47.0); Neutrophil 41 % (42-75); Reactive Lymphocytes 3 % (0-10); Red Blood Cell (RBC) Count 4.16 mill/uL (4.20-5.40); White Blood Cell (WBC) Count 9.3 thou/uL (4.8-10.8)
[2017-08-11] MEDS: Insulin Regular 300 UNITS/3 ML VIAL SC PRN ×2 (05:26→17:26)
[2017-08-11] MEDS: Folic Acid 1 MG TAB PO SCH (08:52)
[2017-08-11] MEDS: Pantoprazole 40 MG VIAL IVP SCH (08:52)
[2017-08-11] MEDS: INSULIN DETEMIR SC SCH (08:53)
[2017-08-11] MEDS: PRE FILLED SC SCH (08:53)
--- NOTE | 2017-08-11 08:56 | PDOC.PN ---
- Subjective Encounter Start Date: 08/11/17 Encounter Start Time: 07:00 -: old records requested/rev Patient seen and examined. No new complaints. No overnight events - Objective Resuscitation Status: Resuscitation Status FULL:Full Resuscitation MAR Reviewed: Yes Vital Signs & Weight: Vital Signs (12 hours) Temp Pulse Resp BP Pulse Ox 08/11/17 07:15 97.9 F 75 18 121/78 97 Weight Admit Weight 103 lb 4.8 oz Weight 101 lb 12.8 oz I&O: 08/10/17 08/11/17 08/12/17 06:59 06:59 06:59 Intake Total 2560 1440 Balance 2560 1440 Result Diagrams: 08/11/17 03:27 08/11/17 03:27 Additional Labs: Accuchecks 08/11/17 08/11/17 08/10/17 07:57 05:25 20:06 POC Glucose 142 H 292 H 105 08/10/17 08/10/17 16:15 10:50 POC Glucose 227 H 87 Phys Exam - Physical Examination Constitutional: NAD HEENT: PERRLA, moist MMs, sclera anicteric Neck: no JVD, supple Respiratory: no wheezing, no rales, no rhonchi Cardiovascular: RRR, no significant murmur, no rub Gastrointestinal: soft, non-tender, no distention, positive bowel sounds Musculoskeletal: no edema, pulses present Neurological: non-focal, normal sensation, moves all 4 limbs Psychiatric: normal affect, A&O x 3 Skin: no rash, normal turgor Dx/Plan (1) DKA (diabetic ketoacidoses) Code(s): E13.10 - OTH DIABETES MELLITUS WITH KETOACIDOSIS WITHOUT COMA Status : Resolved (2) Chronic pancreatitis Code(s): K86.1 - OTHER CHRONIC PANCREATITIS Status: Chronic (3) Hyperlipidemia Code(s): E78.5 - HYPERLIPIDEMIA, UNSPECIFIED Status: Chronic (4) GI bleeding Code(s): K92.2 - GASTROINTESTINAL HEMORRHAGE, UNSPECIFIED Status: Resolved - Plan cont current plan of care * pt has appointment with endocrinology on coming monday * pt is comfortable doing monitoring her blood sugar and adjusting insulin dose by her self * medication reviewed as below * symptomatic treatment * overall stable now and ok to discharge. Review of Systems - Review of Systems Constitutional: negative: Fever, Chills, Sweats, Weakness, Malaise, Other ENT: negative: Ear Pain, Ear Discharge, Nose Pain, Nose Discharge, Nose Congestion, Mouth Pain, Mouth Swelling, Throat Pain, Throat Swelling, Other Respiratory: negative: Cough, Dry, Shortness of Breath, Hemoptysis, SOB with Excertion, Pleuritic Pain, Sputum, Wheezing Cardiovascular: negative: Chest Pain, Palpitations, Orthopnea, Paroxysmal Noc. Dyspnea, Edema, Light Headedness, Other Gastrointestinal: negative: Nausea, Vomiting, Abdominal Pain, Diarrhea, Constipation, Melena, Hematochezia, Other Genitourinary: negative: Dysuria, Frequency, Incontinence, Hematuria, Retention , Other Musculoskeletal: negative: Neck Pain, Shoulder Pain, Arm Pain, Back Pain, Hand Pain, Leg Pain, Foot Pain, Other Skin: negative: Rash, Lesions, Arturo, Bruising, Other - Medications/Allergies Allergies/Adverse Reactions: Allergies Allergy/AdvReac Type Severity Reaction Status Date / Time cephalexin monohydrate Allergy Verified 08/04/17 23:30 [From Keflex] iodine Allergy Verified 08/04/17 23:30 propofol Allergy Verified 08/04/17 23:30 Medications: Current Medications Acetaminophen (Tylenol) 650 mg PO Q4H PRN PRN Reason: Headache/Fever or Pain Last Admin: 08/09/17 16:24 Dose: 650 mg Acetaminophen (Tylenol) 650 mg AR Q4H PRN PRN Reason: Headache/Fever or Pain Albuterol/Ipratropium (Duoneb) 3 ml NEB [id number] PRN PRN Reason: SOB &/or Wheezing Dextrose/Water (Dextrose 50%) 25 gm SLOW IVP PRN PRN PRN Reason: Hypoglycemia Folic Acid (Folvite) 1 mg PO DAILY [facility] Last Admin: 08/11/17 08:52 Dose: 1 mg Glucagon (Glucagon) 1 mg IM PRN PRN PRN Reason: Hypoglycemia Guaifenesin (Robitussin Sf) 200 mg PO Q4H PRN PRN Reason: Cough Hydralazine HCl (Apresoline) 5 mg SLOW IVP Q4H PRN PRN Reason: SBP Greater Than 180 Dextrose/Water (D5w) 1,000 mls @ 0 mls/hr IV .Q0M PRN; As Directed PRN Reason: Hypoglycemia Insulin Detemir 19 units/ (Miscellaneous Medication) 0.19 mls @ 0 mls/hr SC BID GISSELLE PRN Reason: As Directed Last Admin: 08/11/17 08:53 Dose: Not Given Insulin Human Regular (Humulin R) 0 units SC .BEDTIME SLIDING SC PRN PRN Reason: Bedtime Correctional Scale Last Admin: 08/09/17 21:09 Dose: 5 units Insulin Human Regular (Humulin R) 0 units SC .MODERATE SLIDING SC PRN PRN Reason: Moderate Correctional Scale Last Admin: 08/11/17 05:26 Dose: 6 unit Lorazepam (Ativan) 0.25 mg PO DAILYPRN PRN PRN Reason: Anxiety Last Admin: 08/10/17 16:29 Dose: 0.25 mg Morphine Sulfate (Morphine Sulfate) 2 mg SLOW IVP Q4H PRN PRN Reason: Pain Last Admin: 08/11/17 08:52 Dose: 2 mg Nitroglycerin (Nitrostat) 0.4 mg PO Q5MIN PRN PRN Reason: Chest Pain Ondansetron HCl (Zofran Odt) 4 mg PO Q6H PRN PRN Reason: Nausea/Vomiting Ondansetron HCl (Zofran) 4 mg IVP Q6H PRN PRN Reason: Nausea/Vomiting Last Admin: 08/10/17 20:22 Dose: 4 mg Pantoprazole Sodium (Protonix) 40 mg IVP Q12HR GISSELLE Last Admin: 08/11/17 08:52 Dose: 40 mg Senna (Senokot) 2 tab PO HSPRN PRN PRN Reason: Constipation Sodium Chloride (Flush - Normal Saline) 10 ml IVF PRN PRN PRN Reason: Saline Flush Last Admin: 08/11/17 04:33 Dose: 10 ml
--- NOTE | 2017-08-11 10:05 | DIS ---
DATE OF ADMISSION: 08/04/2017 DATE OF DISCHARGE: 08/11/2017 PRIMARY CARE PHYSICIAN: Dean Vazquez M.D. DISCHARGE DISPOSITION: Home. PRIMARY DISCHARGE DIAGNOSES: 1. Diabetic ketoacidosis, resolved. 2. Rectal bleed due to hemorrhoid. SECONDARY DISCHARGE DIAGNOSES: Chronic pancreatitis, dyslipidemia, diabetes type 1 insulin-dependen t. PRIMARY PROCEDURE/OPERATION: Colonoscopy was performed by Dr. Powell and the patient was found with internal hemorrhoid. RADIOLOGICAL INVESTIGATION: Abdomen and pelvis CT scan on admission showed post-surgical changes of pancreatic transplant, pancreatectomy, cholecystectomy, and splenectomy. SIGNIFICANT LABORATORY DATA: WBC 9.3, hemoglobin 10.8, platelets 349, sodium 132, potassium 4.7, BU N 8, creatinine 0.70, calcium 8.6, magnesium 1.8. Urinalysis unremarkable. Ketones 0.28. Stool fo r infection workup came back negative. DISCHARGE MEDICATIONS: The patient wanted to continue her own medications. She is using Lantus ins ulin 38 units subcu p.m. and Novolin R as per sliding scale. Pancrelipase DR 12,000 units t.i.d. wi th meal, Protonix 40 mg p.o. daily. CONTRAINDICATIONS: None. CODE STATUS: FULL CODE. INPATIENT CONSULTANTS: Dr. Powell and Dr. Britt were consulted while in hospital. TEST RESULTS PENDING ON DISCHARGE: None. ALLERGIES: KEFLEX, IODINE, and PROPOFOL. DISCHARGE PLAN: Post hospital, the patient will follow up with primary care physician in 1 week. T he patient has appointment with production superintendent in [place] on 08/15/2017. HOSPITAL COURSE: A 36-year-old female with above mentioned medical problems who was admitted by Dr. Giovanni Zepeda. Please see his H\T\P for further details. The patient mainly came to emergency ro om with complaint of abdominal pain and rectal bleeding. This patient was also found with diabetic ketoacidosis when they did routine workup in the emergency room. The patient was admitted to [facility]. She was treated with diabetic ketoacidosis protocol treatment. This patient also had rectal bleedi ng and that is why brood hatchery manager was consulted and patient underwent colonoscopy which showed i nternal hemorrhoid. With DKA treatment patient's DKA resolved. She remained stable and subsequently patient was transfe rred to medical floor. We were adjusting her insulin as above. This patient decided to leave her i nsulin regimen as it was before because she knows how to manage her insulin and that is why she deci ded to leave up to her. I advised her to monitor her blood sugar more frequently. Diabetic diet ed ucation was given. At this point, patient is medically stable. GI signed off on this patient. She is able to tolerate p.o. well. Her blood sugar is pretty much okay and she has close followup appo intment with production superintendent. The patient is seen and examined at bedside today. Please see my progress note from today for furth er detail.
[2017-08-11 15:50] VITALS: BP 130/75; TEMP 98.2
== END 2017-08-11 18:20 | disposition home or self-care (01) | DRG 638 ==
LOC: ERS 14:14 → IMCU/EMU 20:24 → ONC 08-09 19:04
PROVIDERS: ADMIT Hospitalist; ATTEND Hospitalist
PROC: 0DJD8ZZ Inspection of Lower Intestinal Tract, Via Natural or Artificial Opening Endoscopic (ICD-10-PCS; principal; 2017-08-09)
DX: E13.10 Other specified diabetes mellitus with ketoacidosis without coma (principal); K86.1 Other chronic pancreatitis; Z94.89 Other transplanted organ and tissue status; E44.1 Mild protein-calorie malnutrition; Q43.8 Other specified congenital malformations of intestine; E87.1 Hypo-osmolality and hyponatremia; K92.1 Melena; Z68.1 Body mass index [BMI] 19.9 or less, adult; Z79.4 Long term (current) use of insulin; E86.0 Dehydration; E78.5 Hyperlipidemia, unspecified; K64.8 Other hemorrhoids; K59.00 Constipation, unspecified
CPT/HCPCS: 36415; 36416; 74176; 80048; 80053; 80069; 81001; 82010; 82150; 82274; 82330; 82553; 82728; 82803; 83540; 83550; 83605; 83690; 83735; 84484; 84703; 85014; 85018; 85025; 85049; 86850; 86900; 86901; 87015; 87045; 87046; 87324; 87328; 87329; 87449; 87899; 94760; 96361; 96365; 96366; 96374; 96375; 96376; A4216; C9113; J1815; J2060; J2250; J2270; J2405; J3475; J7050

== ENCOUNTER 2017-08-13 16:36 | Observation (INO) | payer BC ==
--- OUTSIDE RECORDS SUMMARY | 2017-08-13 16:39 | XMS | Clinical Summary ---
:1980 Author Organization [facility] Address [address] [place] [address] Phone Care Team Providers Name Role Phone [...] 07/04/2017 Office Visit Endocrinology Christopher Fuentes Diabetes mellitus MD Mamadou associated with pancreatic disease (Primary Dx) 06/30/2017 Telephone Endocrinology Christopher Fuentes MD 06/20/2017 Office Visit Endocrinology Christopher Fuentes Diabetes mellitus MD Mamadou associated with pancreatic disease (Primary Dx) 06/16/2017 Telephone Internal Medicine Jamshid Dykes MA from Last 3 Months Family History Medical [...] Treatment Date Type Specialty Care Team Description 08/15/2017 Office Visit Endocrinology Chrisotpher Fuentes MD [address] [place] [address] [phone] 09/19/2017 Office Visit Endocrinology Christopher Fuentes MD [address] [place], [place] [id number] Health Maintenance Due Date Last Done Comments FOOT EXAM 1990 OPHTHALMOLOGY EXAM 1990 URINE MICROALBUMIN 1990 PAP SMEAR 2001 INFLUENZA VACCINE 06/13/2017 Implants Implanted Type Area Supervisor [employer] Device Expiration Model / Identifier Date Serial / Lot Bill Pancreatic Stent Set (Gepd-5-7) Stent, N/A: N/A [employer] - GEPD-5-7 / Implanted:Qty: 1 on 02/14/2017 by Kofi Galarza MD Biliary ENDOSCOPY / (GIA-ANDREE) [id number] Stent Pncrtc Zimmon 5fr 6cm - [id number] Surgical N/A: N/A [employer] ENDOSCOPY 03/29/2019 [id number] / Implanted:02/14/2017 (Quantity not on file) Stents / [id number] Results Not on filefrom Last 3 Months Insurance Payer Benefit Plan / Group Subscriber ID Type Phone Address BCBS BCBS CHOICE PPO/FEDER[employer] EMPL PPO [id number] PPO
[2017-08-13] MEDS ORDERED: Promethazine HCl 25 MG/ML VIAL ONE (18:08)
--- NOTE | 2017-08-13 18:40 | RAD ---
PORTABLE CHEST: History: Diabetic ketoacidosis. FINDINGS: Normal cardiac silhouette. The lungs and pleural spaces are clear. No pneumothorax or osseous abnorm ality. IMPRESSION: No acute cardiopulmonary process. POS: TOMERH
[2017-08-13 19:29] LABS: ALT (SGPT) 72 U/L (8-55); AST (SGOT) 103 U/L (5-34); Alkaline Phosphatase 112 U/L (40-150); Anion Gap 16 mmol/L (10-20); BUN (Urea Nitrogen) 4 mg/dL (7.0-18.7); Bilirubin, Total 0.3 mg/dL (0.2-1.2); Calc. Creatinine Clearance 0 mL/min (70-130); Calcium 8.6 mg/dL (7.8-10.44); Carbon Dioxide 22 mmol/L (22-29); Chloride 97 mmol/L (98-107); Estimated GFR-MDRD 86; Globulin 3.2 g/dL (2.4-3.5); Lipase Less than 4 U/L (8-78); Magnesium 1.8 mg/dL (1.6-2.6); Protein, Total 6.5 g/dL (6.0-8.3)
[2017-08-13 19:58] LABS: #Basophils 0.1 thou/uL (0.0-0.2); #Lymphocytes 3.7 thou/uL (1.20-3.40); #Monocytes 0.8 thou/uL (0.11-0.59); #Neutrophils 4.8 thou/uL (1.40-6.50); %Basophils 0.8 % (0.0-1.0); %Eosinophils 0.3 % (0.0-10.0); %Lymphocytes 39.4 % (21.0-51.0); %Monocytes 8.8 % (0.0-10.0); Hematocrit 38.4 % (36.0-47.0); Mean Platelet Volume 8.6 fL (7.4-10.4); Red Blood Cell (RBC) Count 4.54 mill/uL (4.20-5.40); White Blood Cell (WBC) Count 9.4 thou/uL (4.8-10.8)
[2017-08-13 19:59] LABS: Anion Gap 12 mmol/L (-14-95); T. Carbon Dioxide 26.2 mmol/L (1.0-85.0); pH (Venous) 7.479 (7.35-7.45); vO2 Saturation-calc 97.8 % (0.0-100.0)
[2017-08-13] MEDS ORDERED: Insulin Regular 300 UNITS/3 ML VIAL ONE (20:18)
[2017-08-13] MEDS ORDERED: Loperamide HCl 2 MG CAP PO PRN (20:29)
[2017-08-13] MEDS ORDERED: Acetaminophen 325 MG TAB PO PRN (20:29)
[2017-08-13] MEDS ORDERED: Dextrose 5% in Water 1,000 ML IV PRN (20:29)
[2017-08-13] MEDS ORDERED: Dextrose 50% Abboject 50 ML SYRINGE SLOW IVP PRN (20:29)
[2017-08-13] MEDS ORDERED: Insulin Detemir 100 UNITS/ML 25 UNITS in Pre-Filled Syringe 1 EACH SC SCH (20:30)
[2017-08-13] MEDS ORDERED: INSULIN GLARGINE HUM REC ANLOG 38 UNIT SQ SCH (21:00)
[2017-08-13] MEDS: Famotidine 20 MG TAB PO SCH (21:15)
[2017-08-13] MEDS: Sodium Chloride 0.9% 1,000 ML IV SCH (21:16)
[2017-08-13] MEDS ORDERED: Insulin Detemir 100 UNITS/ML 13 UNITS in Pre-Filled Syringe 1 EACH SC SCH (21:30)
[2017-08-13 21:46] LABS: Amphetamine Not Detected (NotDetected); Methadone Not Detected (NotDetected); Methamphetamine Not Detected (NotDetected)
[2017-08-13 22:17] VITALS: BMI 16.5
--- NOTE | 2017-08-14 01:11 | HP ---
REASON FOR ADMISSION: Diabetes mellitus, type 1, uncontrolled. BRIEF COURSE DURING HOSPITALIZATION: Patient came to the ER with complaints of not feeling good from this morning, which has been progressively getting worse. She has been having nauseated feeling and has been vomiting as well. The last few times has been bilious. She also complains of having diarrhea nearly 5 to 7 times a day. This has been going on after she had her colonoscopy done last week. She was in fact discharged on Monday to home. She has not been able to take her medications for her diabetes as she has been throwing up and not keeping anything down from the last 24 hours. 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 She has had splenectomy and diabetes mellitus, type 1. CURRENT MEDICATIONS: Takes Creon 2 pills before meals, Protonix 40 mg daily, Novolin sliding scale, Lantus 34 units at bedtime. ALLERGIES: Allergic to KEFLEX, IODINE, and PROPOFOL. PERSONAL HISTORY: Does not abuse alcohol or drugs. No history of smoking. FAMILY HISTORY: Mother is healthy. Father has history of diabetes. She lives with her mom. Power of county attorney is her friend, Ms. Margarette Case. REVIEW OF SYSTEMS: The following complete review of systems was negative, unless otherwise mentioned in the HPI or below: Constitutional: Weight loss or gain, ability to conduct usual activities. Skin: Rash, itching. Eyes: Double vision, pain. ENT/Mouth: Nose bleeding, neck stiffness, pain, tenderness. Cardiovascular: Palpitations, dyspnea on exertion, orthopnea. Respiratory: Shortness of breath, wheezing, cough, hemoptysis, fever or night sweats. Gastrointestinal: Poor appetite, abdominal pain, heartburn, nausea, vomiting, constipation, or diarrhea. Genitourinary: Urgency, frequency, dysuria, nocturia. Musculoskeletal: Pain, swelling. Neurologic/Psychiatric: Anxiety, depression. Allergy/Immunologic: Skin rash, bleeding tendency. PHYSICAL EXAMINATION: GENERAL: The patient is a 36-year-old female who is currently not in any acute distress. VITAL SIGNS: Blood pressure 128/86, pulse 90 per minute, respiratory rate 18 per minute, temperature 98.6 degrees Fahrenheit, saturating 97% on room air. NECK: Supple, no elevated JVD. HEENT: Eyes, extraocular muscles intact. Pupils are reacting to light. Oral cavity, mucous membranes are moist. No exudates or congestion. CARDIOVASCULAR SYSTEM: S1 and S2 heard. Regular rhythm. RESPIRATORY SYSTEM: Air entry 2+ bilateral. No rales or rhonchi. ABDOMEN: Soft, bowel sounds heard. No tenderness, rigidity, or guarding. EXTREMITIES: No peripheral edema or calf tenderness. VASCULAR SYSTEM: Peripheral pulses 1+ bilateral. No ischemic ulcerations or gangrene. CENTRAL NERVOUS SYSTEM: No gross focal deficits seen. Patient is alert, awake , and oriented x3. PSYCHIATRIC SYSTEM: Patient's mood is euthymic. No hallucinations or delusions. LABORATORY DATA AND X-RAY FINDINGS: White count of 9, hemoglobin and hematocrit of 12 and 38, platelet count 449 with MCV of 84. Venous blood gas done shows a pH of 7.47 and bicarbonate in the venous blood gas is 25, serum bicarbonate is 22. Sodium 134, BUN 4, creatinine 0.7, serum glucose is 478, AST 103, ALT 72, alkaline phosphatase 112, total bilirubin 0.3, albumin is 3.3. Beta hCG is less than 1.20, which is negative for . Beta hydroxybutyrate is 0.73. Chest x-ray done shows no acute cardiopulmonary abnormalities. CLINICAL IMPRESSION AND PLAN: Patient will be under observation on medical floor for Diabetes mellitus, type 1, uncontrolled. She has had her entire pancreas removed per patient in February of this year at [facility]. She has mild dehydration and she will be hydrated with normal saline at 70 mL per hour. We will reinstitute all her home medications including Lantus. She will be on aggressive regular insulin sliding scale here. She will be on Imodium p.r.n. 2 mg for her diarrhea. Her diarrhea has been ongoing after she had her colonoscopy prep done last week. There is no fever as such. We will also continue her Creon as before. She has lost nearly 80 pounds after her pancreatic surgery. [facility]
[2017-08-14] MEDS: Sodium Chloride 0.9% 1,000 ML IV SCH ×3 (03:40→11:17)
[2017-08-14 05:42] LABS: #Basophils 0.1 thou/uL (0.0-0.2); #Eosinphils 0.1 thou/uL (0.0-0.7); #Lymphocytes 3.8 thou/uL (1.20-3.40); #Neutrophils 4.6 thou/uL (1.40-6.50); %Eosinophils 1.4 % (0.0-10.0); %Lymphocytes 39.6 % (21.0-51.0); %Monocytes 10.2 % (0.0-10.0); Hematocrit 35.1 % (36.0-47.0); Mean Platelet Volume 8.9 fL (7.4-10.4); Red Blood Cell (RBC) Count 4.13 mill/uL (4.20-5.40); White Blood Cell (WBC) Count 9.5 thou/uL (4.8-10.8)
[2017-08-14 06:04] LABS: Anion Gap 10 mmol/L (10-20); BUN (Urea Nitrogen) Less than 4 mg/dL (7.0-18.7); Calc. Creatinine Clearance 91 mL/min (70-130); Calcium 8.5 mg/dL (7.8-10.44); Carbon Dioxide 26 mmol/L (22-29); Chloride 105 mmol/L (98-107); Estimated GFR-MDRD Greater than 90
[2017-08-14] MEDS ORDERED: FLU VACC QS2017-18 36 mo. & older 0.5 ML SYRINGE IM ONE (09:00)
[2017-08-14] MEDS: Pancrelipase DR 12000 1 CAP PO SCH ×3 (09:16→17:22)
[2017-08-14] MEDS: Enoxaparin Sodium 30 MG/0.3 ML SYRINGE SC SCH (09:45)
[2017-08-14] MEDS: Famotidine 20 MG TAB PO SCH ×2 (09:46→20:59)
[2017-08-14] MEDS: Ondansetron HCl/PF 4 MG/2 ML Vial IVP PRN ×3 (09:48→20:59)
--- NOTE | 2017-08-14 10:52 | PDOC.PN ---
- Subjective Encounter Start Date: 08/14/17 Encounter Start Time: 10:47 still nausea no f/c no cp - Objective Resuscitation Status: Resuscitation Status FULL:Full Resuscitation MAR Reviewed: Yes Vital Signs & Weight: Vital Signs (12 hours) Temp Pulse Resp BP Pulse Ox 08/14/17 08:00 97.8 F 72 16 134/63 97 08/14/17 04:00 97.8 F 94 16 118/78 96 08/14/17 00:00 98.3 F 77 16 114/72 96 Weight Admit Weight 90 lb Weight 90 lb I&O: 08/13/17 08/14/17 08/15/17 06:59 06:59 06:59 Intake Total 1470 Balance 1470 Result Diagrams: 08/14/17 04:53 08/14/17 04:53 Additional Labs: Accuchecks 08/14/17 08/14/17 08/14/17 10:00 03:43 03:01 POC Glucose 60 L 166 H 60 L 08/13/17 08/13/17 22:45 21:01 POC Glucose 202 H 276 H Phys Exam - Physical Examination Constitutional: NAD HEENT: PERRLA Neck: no JVD Respiratory: no rales Cardiovascular: no significant murmur Gastrointestinal: non-tender Musculoskeletal: pulses present Neurological: normal sensation Dx/Plan (1) Diarrhea Code(s): R19.7 - DIARRHEA, UNSPECIFIED Status: Acute (2) Nausea & vomiting Code(s): R11.2 - NAUSEA WITH VOMITING, UNSPECIFIED Status: Acute (3) Chronic pancreatitis Code(s): K86.1 - OTHER CHRONIC PANCREATITIS Status: Chronic (4) Hyperlipidemia Code(s): E78.5 - HYPERLIPIDEMIA, UNSPECIFIED Status: Chronic (5) DKA (diabetic ketoacidoses) Code(s): E13.10 - OTH DIABETES MELLITUS WITH KETOACIDOSIS WITHOUT COMA Status : Resolved - Plan * . getting better still nausea d/c in am if better
[2017-08-14 11:41] LABS: Anion Gap 15 mmol/L (10-20); BUN (Urea Nitrogen) 4 mg/dL (7.0-18.7); Calc. Creatinine Clearance 82 mL/min (70-130); Calcium 8.4 mg/dL (7.8-10.44); Carbon Dioxide 23 mmol/L (22-29); Chloride 103 mmol/L (98-107); Estimated GFR-MDRD Greater than 90; Magnesium 1.7 mg/dL (1.6-2.6); Phosphorus 3.9 mg/dL (2.3-4.7)
[2017-08-14] MEDS ORDERED: PRE FILLED SC SCH (21:00)
[2017-08-14] MEDS ORDERED: INSULIN DETEMIR SC SCH (21:00)
[2017-08-14] MEDS: HumaLOG 300 UNITS/3 ML VIAL SC PRN (21:59)
[2017-08-15] MEDS: Sodium Chloride 0.9% 1,000 ML IV SCH (01:40)
[2017-08-15] MEDS: Ondansetron HCl/PF 4 MG/2 ML Vial IVP PRN ×2 (05:22→11:45)
[2017-08-15] MEDS: HumaLOG 300 UNITS/3 ML VIAL SC PRN ×2 (05:26→11:47)
[2017-08-15 07:06] VITALS: TEMP 98.2
[2017-08-15] MEDS: Pancrelipase DR 12000 1 CAP PO SCH ×2 (08:38→11:45)
[2017-08-15] MEDS: Famotidine 20 MG TAB PO SCH (08:39)
[2017-08-15] MEDS: Enoxaparin Sodium 30 MG/0.3 ML SYRINGE SC SCH (08:39)
[2017-08-15 11:08] VITALS: BP 128/86
--- NOTE | 2017-08-15 12:39 | PDOC.PN ---
- Subjective Encounter Start Date: 08/15/17 Encounter Start Time: 12:38 Patient seen and examined. No new complaints. No overnight events - Objective Resuscitation Status: Resuscitation Status FULL:Full Resuscitation MAR Reviewed: Yes Vital Signs & Weight: Vital Signs (12 hours) Temp Pulse Resp BP BP Pulse Ox 08/15/17 11:07 98.2 F 78 16 128/86 97 08/15/17 08:00 98.2 F 75 16 08/15/17 07:05 98.2 F 75 16 124/83 97 08/15/17 04:00 98.5 F 90 18 116/77 96 Weight Admit Weight 90 lb Weight 90 lb I&O: 08/14/17 08/15/17 08/16/17 06:59 06:59 06:59 Intake Total 1470 1000 1800 Balance 1470 1000 1800 Result Diagrams: 08/14/17 04:53 08/14/17 11:15 Additional Labs: Accuchecks 08/15/17 08/15/17 08/14/17 11:07 04:13 19:12 POC Glucose 284 H 257 H 200 H 08/14/17 16:29 POC Glucose 145 H Phys Exam - Physical Examination Constitutional: NAD HEENT: PERRLA Neck: no JVD Respiratory: no wheezing Cardiovascular: no significant murmur Gastrointestinal: non-tender Musculoskeletal: pulses present Neurological: moves all 4 limbs Psychiatric: A&O x 3 Skin: normal turgor Dx/Plan (1) Diarrhea Code(s): R19.7 - DIARRHEA, UNSPECIFIED Status: Acute (2) Nausea & vomiting Code(s): R11.2 - NAUSEA WITH VOMITING, UNSPECIFIED Status: Acute (3) Chronic pancreatitis Code(s): K86.1 - OTHER CHRONIC PANCREATITIS Status: Chronic (4) Hyperlipidemia Code(s): E78.5 - HYPERLIPIDEMIA, UNSPECIFIED Status: Chronic - Plan * doing well * eating well * d/c home
--- NOTE | 2017-08-15 13:33 | DIS ---
DATE OF ADMISSION: 08/13/2017 DATE OF DISCHARGE: 08/15/2017 DISCHARGE DIAGNOSES: Type 1 diabetes, uncontrolled; nausea, vomiting, abdominal pain, resolved; his tory of pancreatectomy with history of islet cell transplant, which has failed. DISCHARGE MEDICATIONS: Same as admit medications and Zofran 8 mg p.o. q.6 hours p.r.n. for nausea a nd vomiting. BRIEF HOSPITAL COURSE: This is a 36-year-old pleasant lady who came into the hospital with uncontro lled diabetes type 1. She also had some nausea, vomiting, abdominal pain. Please refer to the admi tting physician's H\T\P for further details. Patient was throwing up and could not take any of her medications in the last 24 hours. The patient was put on insulin sliding scale, given IV fluids, gi obed symptomatic treatment for her nausea and vomiting. The patient improved with this treatment, ri ght now is tolerating p.o. intake, and has a little bit of nausea, but no vomiting. She is tolerati ng p.o. intake. She is right now medically stable to be discharged with outpatient follow up with Elvira PANDEY. She is asked to come back to the emergency room in case symptoms recur. Total time for this discharge took 35 minutes.
== END 2017-08-15 15:27 | disposition home or self-care (01) ==
LOC: ERS 16:36 → T4-B 19:47
PROVIDERS: ADMIT Internal Medicine; ATTEND Internal Medicine
DX: E10.9 Type 1 diabetes mellitus without complications (principal); R11.2 Nausea with vomiting, unspecified; R10.9 Unspecified abdominal pain; R19.7 Diarrhea, unspecified; E86.0 Dehydration; E78.5 Hyperlipidemia, unspecified; Z88.1 Allergy status to other antibiotic agents; Z88.8 Allergy status to other drugs, medicaments and biological substances; Z91.041 Radiographic dye allergy status; Z79.899 Other long term (current) drug therapy; Z90.410 Acquired total absence of pancreas; Z94.89 Other transplanted organ and tissue status; Z83.3 Family history of diabetes mellitus
CPT/HCPCS: 36415; 36416; 71010; 80048; 80053; 80306; 82010; 82330; 82803; 83690; 83735; 84100; 84702; 85025; 90471; 90682; 96361; 96365; 96372; 96375; 96376; A4216; G0008; G0378; J1650; J1815; J2270; J2405; J2550; Q2036

== ENCOUNTER 2017-11-25 20:27 | Inpatient (IN) | payer BC ==
[~2017-11-25 20:27] MED LIST: ISOVUE-370 76%-LOCM 1 ML ONE
[2017-11-25 20:56] LABS: Bilirubin Negative (Negative); Blood, Urine Negative (Negative); Clarity CLEAR (Clear); Glucose, Urine (Dipstick) >=1000 mg/dL (Negative); Leukocyte Negative (Negative); Nitrite Negative (Negative); Protein, Urine (Dipstick) Negative (Neg-Trace); Specific Gravity, Urine 1.027 (1.002-1.036); Urobilinogen 0.2 mg/dL (0.2-1.0)
--- NOTE | 2017-11-25 21:22 | RAD ---
CHEST ONE VIEW 11/25/17 HISTORY: Emergency exam. COMPARISON: Chest one view 08/23/17. FINDINGS: The lungs are clear. No pneumothorax or effusion. The cardiac silhouette and effusion. The cardiac si lhouette and mediastinal contours are within normal limits. IMPRESSION: No acute intrathoracic abnormality. POS: H
[2017-11-25 22:03] LABS: ALT (SGPT) 35 U/L (8-55); AST (SGOT) 35 U/L (5-34); Albumin 3.5 g/dL (3.5-5.0); Alkaline Phosphatase 213 U/L (40-150); Anion Gap 17 mmol/L (10-20); BUN (Urea Nitrogen) 11 mg/dL (7.0-18.7); Bilirubin, Total 0.2 mg/dL (0.2-1.2); Calc. Creatinine Clearance 0 mL/min (70-130); Carbon Dioxide 20 mmol/L (22-29); Chloride 92 mmol/L (98-107); Estimated GFR-MDRD 56; Globulin 3.3 g/dL (2.4-3.5); Lipase 10 U/L (8-78); Potassium 4.6 mmol/L (3.5-5.1); Protein, Total 6.8 g/dL (6.0-8.3); Sodium 124 mmol/L (136-145)
[2017-11-25 22:09] LABS: #Basophils 0.1 thou/uL (0.0-0.2); #Eosinphils 0.1 thou/uL (0.0-0.7); #Monocytes 0.8 thou/uL (0.11-0.59); #Neutrophils 7.5 thou/uL (1.40-6.50); %Basophils 0.9 % (0.0-1.0); %Eosinophils 0.7 % (0.0-10.0); %Lymphocytes 26.2 % (21.0-51.0); %Monocytes 7.1 % (0.0-10.0); %Neutrophils 65.1 % (42.0-75.0); Acanthocytes SLIGHT = 1-5 cells (100X) (None Seen); Hemoglobin 12.4 g/dL (12.0-16.0); Hypochromia SLIGHT = 6-15 cells (100X) (0-5/hpf); MDiff Complete? YES; Mean Corpuscular HGB CONC 29.9 g/dL (32.0-36.0); Mean Corpuscular Hemoglobin 26.2 pg (27.0-31.0); Mean Corpuscular Volume 87.5 fl (81.0-99.0); Mean Platelet Volume 8.4 fL (7.4-10.4); PLT Morphology Comment Appears Increased; Platelet Count 535 thou/uL (130-400); RBC Distribution Width 16.9 % (11.5-14.5); Red Blood Cell (RBC) Count 4.75 mill/uL (4.20-5.40); White Blood Cell (WBC) Count 11.6 thou/uL (4.8-10.8)
[2017-11-25 22:14] LABS: Glucose 947 mg/dL (70-105)
[2017-11-25 22:15] LABS: Base Excess-Venous 1.5 mmol/L (-30.0-30.0); Bicarbonate (HCO3v) 23.9 mmol/L (1.0-85.0); CO2 Tension (PvCO2) 30.5 mmHg (41.0-51.0); Calcium, Ionized 0.99 mmol/L (1.12-1.32); Hemoglobin - Calc 13.4 g/dL (12.0-18.0); O2 Tension (PvO2) 58.9 mmHg (35.0-45.0); Potassium 4.6 mmol/L (3.4-4.7); T. Carbon Dioxide 24.9 mmol/L (1.0-85.0); pH (Venous) 7.503 (7.35-7.45); vO2 Saturation-calc 92.8 % (0.0-100.0)
[2017-11-25] MEDS ORDERED: diphenhydrAMINE 50 MG/ML VIAL ONE (22:19)
[2017-11-25] MEDS ORDERED: methylPREDNISolone Sod Succ/PF 125 MG/2 ML VIAL ONE (22:19)
[2017-11-25] MEDS ORDERED: Famotidine/PF 20 mg/2ml Vial ONE (22:19)
[2017-11-25] MEDS ORDERED: Morphine 4 MG/ML Carpuject ONE (23:41)
--- NOTE | 2017-11-25 23:49 | CT ---
CT CHEST WITH CONTRAST CT ABDOMEN WITH CONTRAST CT PELVIS WITH CONTRAST CT LIMITED THORACIC SPINE WITH CONTRAST CT LIMITED LUMBOSACRAL SPINE WITH CONTRAST 11/25/17 HISTORY: Trauma. The lungs are clear. No pneumothorax. No pneumatocele. No pulmonary laceration. Sternum and manubrium are intact. Spinous processes of the thoracic spine are intact. No thoracic spi ne compression fracture. The clavicles are intact. No displaced rib fracture. No lumbosacral spine fracture. No pelvis fractur e. There is an area of sclerosis in the central T6 vertebral body, likely hemangioma. Prior cholecystectomy. Low grade pneumobilia. There is mild hyperenhancement of the proximal small tomi wel mucosa suggesting an enteritis. No free fluid in the abdomen or pelvis. Moderate increased stool throughout the colon similar to the comparison exam. Prior pancreatectomy as well as splenectomy. Cys ts left kidney. Aortoiliac contour is normal. IMPRESSION: 1. No acute traumatic abnormality in the chest, abdomen or pelvis. 2. Mild hyperenhancement of the small bowel mucosa suggesting enteritis. 3. Large volume stool throughout the colon, likely chronic in nature as this was seen in the tam or examination from 08/04/17. 1. POS: KIZZY
[2017-11-26] MEDS ORDERED: D5 1/2 NS w/20 mEq KCL 1,000 ML IV SCH (01:00)
[2017-11-26] MEDS ORDERED: Sodium Chloride 0.9% 1,000 ML IV PRN ×4 (01:28)
[2017-11-26] MEDS ORDERED: NS 0.9% w/ 20 MEQ KCL 1,000 ML IV PRN ×2 (01:28)
[2017-11-26] MEDS ORDERED: Dextrose 5 %-0.45 % NaCl 1,000 ML IV PRN (01:28)
[2017-11-26] MEDS ORDERED: CCU Electrolyte Replacement 1 EACH IVPB SCH (01:28)
[2017-11-26] MEDS ORDERED: D5 1/2 NS w/20 mEq KCL 1,000 ML IV PRN (01:28)
[2017-11-26] MEDS ORDERED: Morphine 4 MG/ML Carpuject SLOW IVP PRN (01:31)
[2017-11-26] MEDS ORDERED: Potassium Chloride 40 MEQ in Sodium Chloride 0.9% 250 ML 250 ML IVPB PRN (01:35)
[2017-11-26] MEDS ORDERED: Potassium Phosphate 9 MMOL in Sodium Chloride 0.9% 100 ML IVPB PRN (01:35)
[2017-11-26] MEDS ORDERED: Magnesium 2 GM/NS 0.9% 100 ML 2 GM in Premix Bag 1 BAG IVPB PRN (01:35)
[2017-11-26] MEDS ORDERED: Potassium Phosphate 12 MMOL in Sodium Chloride 0.9% 250 ML 250 ML IV PRN (01:35)
[2017-11-26] MEDS ORDERED: Potassium Chloride 40 MEQ in Premix Bag 1 BAG IVPB PRN (01:35)
[2017-11-26] MEDS ORDERED: Potassium Chloride 20 MEQ TAB PO PRN (01:35)
[2017-11-26] MEDS ORDERED: CCU ELECTROLYTE REPLACEMENT PROTOCOL FS PRN (01:35)
[2017-11-26] MEDS ORDERED: Magnesium Oxide 400 MG TAB PO PRN ×2 (01:35)
[2017-11-26] MEDS ORDERED: Potassium Phosphate 15 MMOL in Sodium Chloride 0.9% 250 ML 250 ML IV PRN (01:35)
[2017-11-26 02:13] LABS: Anion Gap 14 mmol/L (10-20); BUN (Urea Nitrogen) 10 mg/dL (7.0-18.7); Calc. Creatinine Clearance 0 mL/min (70-130); Calcium 9.6 mg/dL (7.8-10.44); Carbon Dioxide 22 mmol/L (22-29); Chloride 103 mmol/L (98-107); Estimated GFR-MDRD Greater than 90; Glucose 321 mg/dL (70-105); Sodium 135 mmol/L (136-145)
[2017-11-26] MEDS ORDERED: Morphine 2 MG/ML SYRINGE ONE ×3 (02:31→10:23)
[2017-11-26] MEDS ORDERED: D5 1/2 NS w/20 mEq KCL 1,000 ML ONE (04:40)
[2017-11-26 06:09] LABS: Anion Gap 13 mmol/L (10-20); BUN (Urea Nitrogen) 10 mg/dL (7.0-18.7); Calc. Creatinine Clearance 0 mL/min (70-130); Calcium 8.9 mg/dL (7.8-10.44); Carbon Dioxide 22 mmol/L (22-29); Chloride 106 mmol/L (98-107); Estimated GFR-MDRD Greater than 90; Glucose 254 mg/dL (70-105); Potassium 4.2 mmol/L (3.5-5.1); Sodium 137 mmol/L (136-145)
[2017-11-26] MEDS ORDERED: diphenhydrAMINE 50 MG/ML VIAL ONE (06:36)
[2017-11-26] MEDS ORDERED: Polyethylene Glycol 3350 17 GM Packet PO SCH (09:00)
[2017-11-26] MEDS ORDERED: Enoxaparin Sodium 40 MG/0.4 ML SYRINGE SC SCH (09:00)
[2017-11-26 09:45] LABS: Anion Gap 16 mmol/L (10-20); BUN (Urea Nitrogen) 8 mg/dL (7.0-18.7); Calc. Creatinine Clearance 0 mL/min (70-130); Calcium 8.6 mg/dL (7.8-10.44); Carbon Dioxide 18 mmol/L (22-29); Chloride 105 mmol/L (98-107); Estimated GFR-MDRD Greater than 90; Glucose 377 mg/dL (70-105); Potassium 4.6 mmol/L (3.5-5.1); Sodium 134 mmol/L (136-145)
[2017-11-26 11:01] VITALS: BMI 18.7
[2017-11-26] MEDS: Morphine 2 MG/ML SYRINGE SLOW IVP PRN ×2 (11:47→15:57)
[2017-11-26] MEDS: diphenhydrAMINE 50 MG/ML VIAL IVP PRN ×2 (11:48→16:25)
--- NOTE | 2017-11-26 14:23 | HP ---
CHIEF COMPLAINT: She came in with high blood sugar. HISTORY OF PRESENT ILLNESS: She is a 37-year-old woman with a history of type 1 diabetes, on insulin pump with islet cell transplant failure. She was not excellent this morning, blood sugar running high and pump was malfunctioning. Because of these symptoms, she came to ER. In ER, her vital signs, pulse 80, blood pressure 123/80, respirations 20, temperature 98.4. She did have blood sugar running high, and she is DKA, so she was started on EndoTool protocol. PAST MEDICAL HISTORY: History of type 1 diabetes, on insulin; pancreatitis; multiple stent, ERCP pancreatectomy, and islet cell transplant. PAST SURGICAL HISTORY: Cyst appendectomy, cholecystectomy, splenectomy, partial pancreatectomy, pancreatic transplant. PSYCHIATRIC HISTORY: Anxiety. SOCIAL HISTORY: Denies alcohol use, drug use. No smoking history. FAMILY HISTORY: No history of diabetes. Family history is noncontributory. In the ER, she was started on insulin drip. REVIEW OF SYSTEMS: Constitutional: She denies any fever and chills. HEENT: No blurry vision. No rhinorrhea. Cardiovascular: She denies any chest pain or palpitation. Respiratory: Denies any cough and shortness of breath, wheezing. Gastrointestinal: She complained of abdominal pain, chronic diarrhea and vomiting. Musculoskeletal: No neck pain and no back pain. Endocrine: She does have polyuria and polydipsia. All other review of systems negative except in history and physical. PHYSICAL EXAMINATION: GENERAL: When examining her, she is a young girl, lying in the bed, not in distress. VITAL SIGNS: Pulse 88, blood pressure 123/80, respiratory rate 20, temperature 98.4, pulse tachycardic. HEENT: Head is normocephalic. Pupils are reactive. Extraocular muscles are intact. Ears and throat normal. Tongue mucosa moist. NECK: Supple. No JVD, no thyromegaly, no carotid bruit. Trachea midline. CHEST: Showed normal vesicular breathing, no added sounds. CARDIAC: S1, S2 audible. No S3 or S4. ABDOMEN: Soft, slightly distended. Bowel sounds audible. Midline scar diffuse Vague tenderness noted. BACK: No tenderness. NEUROLOGICAL: Alert and oriented x3, no focal deficit. SKIN: Warm and dry. LABORATORY DATA: Shows WBC of 11.6, hemoglobin 12.4, hematocrit of 41.5, platelets 535. Sodium 124, potassium 4.6, chloride 92, carbon dioxide 22, glucose 947, GFR 56, total bilirubin 0.2, alkaline phosphatase 213, serum total protein 6.8, albumin 3.5, globulin 3.3, lipase 10. Chest x-ray negative. CT scan of Abdomen and Pelvis showed Stool throughout in Colon. ASSESSMENT AND PLAN: 1. Acute diabetic ketoacidosis. 2. Type 1 diabetes. Plan to put in the ICU. Diabetic ketoacidosis protocol, EndoTool. Follow up BMP q.4 hourly. IV fluid. 3. Abdominal pain secondary to constipation. Continue MiraLax. 4. Deep vein thrombosis prophylaxis will be Lovenox. MTDD
[2017-11-26 15:48] VITALS: BP 107/64; TEMP 97.9
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
== END 2017-11-26 17:56 | disposition home or self-care (01) | DRG 919 ==
LOC: ERS 20:27 → ERHOLD 11-26 00:24 → IMCU/EMU 11-26 10:50
PROVIDERS: ADMIT Family Medicine; ATTEND Family Medicine
DX: T85.624A Displacement of insulin pump, initial encounter (principal); E10.10 Type 1 diabetes mellitus with ketoacidosis without coma; Z94.89 Other transplanted organ and tissue status; E87.1 Hypo-osmolality and hyponatremia; F41.9 Anxiety disorder, unspecified; K59.00 Constipation, unspecified; T38.3X6A Underdosing of insulin and oral hypoglycemic [antidiabetic] drugs, initial encounter; Z88.1 Allergy status to other antibiotic agents; Z88.4 Allergy status to anesthetic agent; Z79.4 Long term (current) use of insulin; Z79.899 Other long term (current) drug therapy
CPT/HCPCS: 36415; 36416; 71045; 71260; 74177; 80048; 80053; 81003; 82010; 82330; 82803; 83690; 85025; 87040; 87077; 87086; 93005; 94760; J1200; J1815; J2270; J2930; J7050; S0028

== ENCOUNTER 2017-12-09 04:09 | Inpatient (IN) | payer BC ==
[2017-12-09] MEDS ORDERED: Ondansetron HCl/PF 4 MG/2 ML Vial ONE (04:29)
[2017-12-09 04:42] LABS: Base Excess-Venous -19.4 mmol/L (-30.0-30.0); CO2 Tension (PvCO2) 24.2 mmHg (41.0-51.0); Calcium, Ionized 1.14 mmol/L (1.12-1.32); Hemoglobin - Calc 17.1 g/dL (12.0-18.0); Potassium 5.1 mmol/L (3.4-4.7); T. Carbon Dioxide 8.8 mmol/L (1.0-85.0); pH (Venous) 7.129 (7.35-7.45); vO2 Saturation-calc 72.5 % (0.0-100.0)
[2017-12-09] MEDS ORDERED: Morphine 4 MG/ML Carpuject ONE (04:46)
[2017-12-09 04:58] LABS: ALT (SGPT) 30 U/L (8-55); AST (SGOT) 20 U/L (5-34); Albumin 4.3 g/dL (3.5-5.0); Alkaline Phosphatase 156 U/L (40-150); Anion Gap 27 mmol/L (10-20); BUN (Urea Nitrogen) 8 mg/dL (7.0-18.7); Bilirubin, Total 0.2 mg/dL (0.2-1.2); Calc. Creatinine Clearance 0 mL/min (70-130); Calcium 9.3 mg/dL (7.8-10.44); Chloride 95 mmol/L (98-107); Estimated GFR-MDRD 56; Globulin 3.5 g/dL (2.4-3.5); Lipase 4 U/L (8-78); Magnesium 1.9 mg/dL (1.6-2.6); Phosphorus 3.8 mg/dL (2.3-4.7); Potassium 5.2 mmol/L (3.5-5.1); Protein, Total 7.8 g/dL (6.0-8.3); Sodium 125 mmol/L (136-145)
[2017-12-09] MEDS ORDERED: diphenhydrAMINE 50 MG/ML VIAL ONE (04:58)
[2017-12-09 05:02] LABS: Carbon Dioxide 8 mmol/L (22-29); Glucose 621 mg/dL (70-105)
[2017-12-09 05:05] LABS: Hemoglobin 12.7 g/dL (12.0-16.0); Mean Corpuscular HGB CONC 29.9 g/dL (32.0-36.0); Mean Corpuscular Hemoglobin 25.5 pg (27.0-31.0); Mean Corpuscular Volume 85.3 fl (81.0-99.0); Mean Platelet Volume 8.6 fL (7.4-10.4); Platelet Count 604 thou/uL (130-400); RBC Distribution Width 16.2 % (11.5-14.5); Red Blood Cell (RBC) Count 4.97 mill/uL (4.20-5.40); White Blood Cell (WBC) Count 14.3 thou/uL (4.8-10.8)
[2017-12-09] MEDS ORDERED: Insulin Regular 300 UNITS/3 ML VIAL ONE (05:22)
[2017-12-09] MEDS ORDERED: NS 0.9% w/ 20 MEQ KCL 1,000 ML IV PRN ×2 (05:25)
[2017-12-09] MEDS ORDERED: Sodium Chloride 0.9% 1,000 ML IV PRN ×4 (05:25)
[2017-12-09] MEDS ORDERED: CCU Electrolyte Replacement 1 EACH IVPB ONE (05:25)
[2017-12-09] MEDS ORDERED: Dextrose 5 %-0.45 % NaCl 1,000 ML IV PRN (05:25)
[2017-12-09] MEDS ORDERED: Ondansetron HCl/PF 4 MG/2 ML Vial IVP PRN (05:28)
[2017-12-09 05:31] LABS: Band 10 % (5-11); Lymphocytes 17 % (21-51); MDiff Complete? YES; Metamyelocyte 1 % (0-0); Monocytes 5 % (0-10); Myelocyte 1 % (0-0); Neutrophil 66 % (42-75); PLT Morphology Comment Appears Increased; RBC Morphology Normal
[2017-12-09] MEDS ORDERED: Magnesium 2 GM/NS 0.9% 100 ML 2 GM in Premix Bag 1 BAG IVPB PRN (05:39)
[2017-12-09] MEDS ORDERED: Potassium Phosphate 12 MMOL in Sodium Chloride 0.9% 250 ML 250 ML IV PRN (05:39)
[2017-12-09] MEDS ORDERED: Potassium Chloride 40 MEQ in Premix Bag 1 BAG IVPB PRN (05:39)
[2017-12-09] MEDS ORDERED: Magnesium Oxide 400 MG TAB PO PRN (05:39)
[2017-12-09] MEDS ORDERED: Potassium Chloride 40 MEQ in Sodium Chloride 0.9% 250 ML 250 ML IVPB PRN (05:39)
[2017-12-09] MEDS ORDERED: Potassium Chloride 20 MEQ TAB PO PRN (05:39)
[2017-12-09] MEDS ORDERED: CCU ELECTROLYTE REPLACEMENT PROTOCOL FS PRN (05:39)
[2017-12-09] MEDS ORDERED: Potassium Phosphate 15 MMOL in Sodium Chloride 0.9% 250 ML 250 ML IV PRN (05:39)
[2017-12-09] MEDS ORDERED: Potassium Phosphate 9 MMOL in Sodium Chloride 0.9% 100 ML IVPB PRN (05:39)
[2017-12-09] MEDS: Enoxaparin Sodium 40 MG/0.4 ML SYRINGE SC SCH (07:40)
[2017-12-09 07:57] VITALS: BMI 17.4
[2017-12-09] MEDS ORDERED: traMADol HCl 50 MG TAB PO SCH (08:00)
--- NOTE | 2017-12-09 08:11 | HP ---
PRIMARY CARE PHYSICIAN: Dr. Dean Vazquez CODE STATUS: Full code. CHIEF COMPLAINT: Abdominal pain, nausea, vomiting. HISTORY OF PRESENT ILLNESS: This is a 37-year-old female patient with a past medical history of type 1 diabetes and pancreatitis, status post pancreatic resection as per the patient's report. She came to the hospital after having severe gradually worsening, not improving abdominal pain associated with nausea , vomiting and diarrhea, no clear triggers, no alleviating factors other than medical treatment in ER. The patient has an insulin pump that she uses and adjusts herself on a regular basis. She was trying to avoid coming to the ER; however, she noticed that she was not getting better. REVIEW OF SYSTEMS: CONSTITUTIONAL: The patient had no fever, no chills. She did report generalized weakness. RESPIRATORY: No cough, no sputum production, no shortness of breath. CARDIOVASCULAR: No chest pain, palpitations or shortness of breath. GASTROINTESTINAL: The patient reported continued nausea, vomiting, diarrhea, abdominal pain. CENTRAL NERVOUS SYSTEM: The patient denies any dizziness, headache or feeling lightheaded. GENITOURINARY: No burning on urination. EXTREMITIES: Denies leg swelling. All other systems were reviewed and were negative except for the findings mentioned above. PAST MEDICAL HISTORY: Diabetes type 1, pancreatitis, chronic. SOCIAL HISTORY: She lives with his family. PAST SURGICAL HISTORY: Pancreatic resection, insulin pump. FAMILY HISTORY: Father with diabetes type 2. ALLERGIES: ACETAMINOPHEN, CEPHALEXIN, MONOHYDRATE, IODINE, PROPOFOL. HOME MEDICATIONS: The patient uses an insulin pump. PHYSICAL EXAMINATION: VITAL SIGNS: The patient has heart rate 115, blood pressure 125/70, respiratory rate of 22, no pain. GENERAL: The patient looks dry, weak, dehydrated. HEENT: Eyes, normal conjunctivae and dry oral mucosa. NECK: No JVD. RESPIRATORY: Bilateral air entry, no rales, no wheezing, symmetric expansion. CARDIOVASCULAR: The patient is tachycardic, no gallop, no edema. ABDOMEN: Soft, bowel sounds. There is scar in the midline from previous surgery. MUSCULOSKELETAL: Baseline range of motion and strength, no tenderness. SKIN: Warm and intact. No palmar rash or redness. NEUROLOGIC: Baseline sensory. No evidence of any new focal weakness. Baseline speech. Cranial nerves seem to be intact. PSYCHIATRIC: Mood, no anxiety. No evidence of altered judgment. LABORATORY DATA: Labs were reviewed. The patient has a sodium of 125, potassium 5.2, chloride 95, carbon dioxide 8, anion gap 27, BUN 8, creatinine 1.09, GFR 56, glucose 621, calcium 9.3, phosphorus 3.8, magnesium 1.9, bilirubin 0.2, AST 20, ALT 30, alkaline phosphatase 156, serum bilirubin 7.8, albumin 3.5, albumin globulin ratio is 1.2, lipase 4. White count 14.3, hemoglobin 12.7, platelet count 304. ABG was reviewed. BUEG 7.11/05.. ASSESSMENT AND PLAN: 1. Diabetes ketoacidosis, we will place the patient on DKA protocol, hydration , insulin, electrolyte replacement. 2. Deep venous thrombosis prophylaxis. 3. Pseudo hyperkalemia, that is secondary to metabolic acidosis, treat underlying conditions. 4.hypertonic hyponatremia due to hyperglycemia, will treat underlying condition. 5. Chronic pancreatitis, we will treat symptomatically. Admit to ICU Critical care time > 35 min, invested in bedside assessment, coordination of care and review and elaboration of records. TRACEY
[2017-12-09 08:25] LABS: Anion Gap 15 mmol/L (10-20); BUN (Urea Nitrogen) 6 mg/dL (7.0-18.7); Calc. Creatinine Clearance 77 mL/min (70-130); Calcium 7.5 mg/dL (7.8-10.44); Carbon Dioxide 9 mmol/L (22-29); Chloride 109 mmol/L (98-107); Estimated GFR-MDRD Greater than 90; Glucose 269 mg/dL (70-105); Potassium 4.3 mmol/L (3.5-5.1); Sodium 129 mmol/L (136-145)
[2017-12-09] MEDS: Morphine 2 MG/ML SYRINGE SLOW IVP PRN ×3 (11:27→20:28)
[2017-12-09 12:41] LABS: Anion Gap 10 mmol/L (10-20); BUN (Urea Nitrogen) 4 mg/dL (7.0-18.7); Calc. Creatinine Clearance 92 mL/min (70-130); Calcium 7.2 mg/dL (7.8-10.44); Carbon Dioxide 14 mmol/L (22-29); Chloride 113 mmol/L (98-107); Estimated GFR-MDRD Greater than 90; Glucose 85 mg/dL (70-105); Potassium 4.3 mmol/L (3.5-5.1); Sodium 133 mmol/L (136-145)
[2017-12-09] MEDS: diphenhydrAMINE 12.5 MG/5 ML UDCUP PO PRN (12:56)
[2017-12-09] MEDS: D5 1/2 NS w/20 mEq KCL 1,000 ML IV PRN ×2 (13:04→17:11)
--- NOTE | 2017-12-09 13:40 | PDOC.PN ---
- Subjective Encounter Start Date: 12/09/17 Encounter Start Time: 12:00 Subjective: I FEEL A LITTLE BETTER - Objective Vital Signs & Weight: Vital Signs (12 hours) Temp Pulse Resp Pulse Ox 12/09/17 12:00 98.4 F 12/09/17 08:00 98.0 F 84 20 100 Weight Weight 95 lb 3.835 oz Most Recent Monitor Data Heart Rate from ECG 95 NIBP 127/69 NIBP BP-Mean 82 Respiration from ECG 19 SpO2 100 I&O: 12/08/17 12/09/17 12/10/17 06:59 06:59 06:59 Output Total 1050 Balance -1050 Result Diagrams: 12/09/17 04:22 12/09/17 12:06 Additional Labs: Accuchecks 12/09/17 12/09/17 12/09/17 12:07 10:55 10:05 POC Glucose 93 121 H 168 H 12/09/17 12/09/17 08:53 07:14 POC Glucose 236 H 366 H Phys Exam - Physical Examination Constitutional: NAD HEENT: PERRLA, moist MMs, sclera anicteric Neck: supple, full ROM Respiratory: no wheezing, clear to auscultation bilateral Cardiovascular: RRR, no significant murmur Gastrointestinal: soft Musculoskeletal: no edema, pulses present Neurological: non-focal, moves all 4 limbs Psychiatric: normal affect, A&O x 3 Skin: no rash Dx/Plan (1) Diabetes type 1, uncontrolled Code(s): E10.65 - TYPE 1 DIABETES MELLITUS WITH HYPERGLYCEMIA Status: Acute Qualifiers: (2) H/O chronic pancreatitis Code(s): Z87.19 - PERSONAL HISTORY OF OTHER DISEASES OF THE DIGESTIVE SYSTEM Status: Chronic (3) Hyperlipidemia Code(s): E78.5 - HYPERLIPIDEMIA, UNSPECIFIED Status: Chronic Qualifiers: (4) Secondary pancreatic insufficiency Code(s): K86.89 - OTHER SPECIFIED DISEASES OF PANCREAS Status: Chronic Comment: due to Pancreatic excision (5) DKA (diabetic ketoacidoses) Code(s): E13.10 - OTH DIABETES MELLITUS WITH KETOACIDOSIS WITHOUT COMA Status : Resolved Qualifiers: (6) Hyponatremia Code(s): E87.1 - HYPO-OSMOLALITY AND HYPONATREMIA Status: Resolved - Plan cont current plan of care CONDITION IMPROVED CONT REGIMEN * .
[2017-12-09] MEDS ORDERED: traMADol HCl 50 MG TAB PO PRN (14:00)
[2017-12-09 16:34] LABS: Anion Gap 11 mmol/L (10-20); BUN (Urea Nitrogen) Less than 4 mg/dL (7.0-18.7); Calc. Creatinine Clearance 78 mL/min (70-130); Calcium 7.3 mg/dL (7.8-10.44); Carbon Dioxide 14 mmol/L (22-29); Chloride 108 mmol/L (98-107); Estimated GFR-MDRD Greater than 90; Glucose 278 mg/dL (70-105); Potassium 4.1 mmol/L (3.5-5.1); Sodium 129 mmol/L (136-145)
[2017-12-09 20:14] LABS: Anion Gap 8 mmol/L (10-20); BUN (Urea Nitrogen) Less than 4 mg/dL (7.0-18.7); Calc. Creatinine Clearance 78 mL/min (70-130); Calcium 7.8 mg/dL (7.8-10.44); Carbon Dioxide 18 mmol/L (22-29); Chloride 108 mmol/L (98-107); Estimated GFR-MDRD Greater than 90; Glucose 287 mg/dL (70-105); Potassium 3.6 mmol/L (3.5-5.1); Sodium 130 mmol/L (136-145)
[2017-12-09] MEDS ORDERED: Dextrose 50% Abboject 50 ML SYRINGE SLOW IVP PRN (20:39)
[2017-12-09] MEDS ORDERED: Dextrose 5% in Water 1,000 ML IV PRN (20:39)
--- NOTE | 2017-12-09 20:45 | PDOC.EVN ---
Event Note - Event Note Event Note: RN called - Will change Insulin drip to SQ with sliding scale. Patient does not remember her insulin pump settings.
[2017-12-09] MEDS ORDERED: Insulin Detemir 100 UNITS/ML 15 UNITS in Pre-Filled Syringe 1 EACH SC SCH (21:00)
[2017-12-09] MEDS ORDERED: diphenhydrAMINE 25 MG in Sodium Chloride 0.9% 50 ML IVPB SCH (21:00)
[2017-12-09] MEDS ORDERED: diphenhydrAMINE 50 MG/ML VIAL IVP SCH (21:00)
[2017-12-09] MEDS: Insulin Regular 300 UNITS/3 ML VIAL SC PRN (21:15)
[2017-12-09] MEDS: 1/2 NS w/KCL 20 mEq 1,000 ML IV SCH (21:18)
[2017-12-10] MEDS: Insulin Regular 300 UNITS/3 ML VIAL SC PRN ×4 (00:12→18:06)
[2017-12-10] MEDS: Morphine 2 MG/ML SYRINGE SLOW IVP PRN ×5 (00:26→17:05)
[2017-12-10] MEDS: 1/2 NS w/KCL 20 mEq 1,000 ML IV SCH ×4 (03:35→19:42)
[2017-12-10 04:46] LABS: Anion Gap 11 mmol/L (10-20); BUN (Urea Nitrogen) Less than 4 mg/dL (7.0-18.7); Calc. Creatinine Clearance 89 mL/min (70-130); Calcium 7.7 mg/dL (7.8-10.44); Carbon Dioxide 16 mmol/L (22-29); Chloride 110 mmol/L (98-107); Estimated GFR-MDRD Greater than 90; Glucose 128 mg/dL (70-105); Magnesium 1.4 mg/dL (1.6-2.6); Phosphorus 1.8 mg/dL (2.3-4.7); Potassium 4.1 mmol/L (3.5-5.1); Sodium 133 mmol/L (136-145)
[2017-12-10] MEDS: Magnesium Oxide 400 MG TAB PO PRN ×2 (04:49→15:50)
[2017-12-10] MEDS: Enoxaparin Sodium 40 MG/0.4 ML SYRINGE SC SCH (08:43)
[2017-12-10] MEDS: diphenhydrAMINE 12.5 MG/5 ML UDCUP PO PRN ×2 (08:44→16:35)
[2017-12-10] MEDS: Insulin Detemir 100 UNITS/ML 15 UNITS in Pre-Filled Syringe 1 EACH SC SCH (08:44)
--- NOTE | 2017-12-10 17:02 | PDOC.PN ---
- Subjective Encounter Start Date: 12/10/17 Encounter Start Time: 15:00 Subjective: Patient requested d/c so she could work tomorrow. During d/c she became -: tearful with RN, and asked to stay as she felt nauseous and feared bouncing -: back. She also had elveated bs near d/c. - Objective Vital Signs & Weight: Vital Signs (12 hours) Temp Pulse Resp Pulse Ox 12/10/17 16:00 98.6 F 12/10/17 12:00 97.8 F 12/10/17 08:00 98.7 F 88 20 100 Weight Weight 95 lb 3.835 oz Most Recent Monitor Data Heart Rate from ECG 89 NIBP 126/86 NIBP BP-Mean 98 Respiration from ECG 14 SpO2 99 I&O: 12/09/17 12/10/17 12/11/17 06:59 06:59 06:59 Intake Total 5259.7 856 Output Total 3250 500 Balance 2009.7 356 Result Diagrams: 12/09/17 04:22 12/10/17 03:18 Additional Labs: Accuchecks 12/10/17 12/10/17 12/10/17 16:41 14:58 12:08 POC Glucose 200 H 207 H 154 H 12/10/17 12/10/17 12/10/17 08:03 04:19 00:03 POC Glucose 109 144 H 260 H 12/09/17 12/09/17 12/09/17 22:09 21:02 20:01 POC Glucose 219 H 275 H 271 H 12/09/17 12/09/17 12/09/17 19:04 18:15 17:11 POC Glucose 304 H 295 H 234 H Phys Exam - Physical Examination tearful HEENT: PERRLA, moist MMs, sclera anicteric Neck: supple, full ROM Respiratory: clear to auscultation bilateral Cardiovascular: RRR, no significant murmur Gastrointestinal: soft, non-tender Musculoskeletal: no edema Neurological: non-focal, moves all 4 limbs Psychiatric: A&O x 3 Skin: no rash Dx/Plan (1) Diabetes type 1, uncontrolled Code(s): E10.65 - TYPE 1 DIABETES MELLITUS WITH HYPERGLYCEMIA Status: Acute Qualifiers: (2) H/O chronic pancreatitis Code(s): Z87.19 - PERSONAL HISTORY OF OTHER DISEASES OF THE DIGESTIVE SYSTEM Status: Chronic (3) Hyperlipidemia Code(s): E78.5 - HYPERLIPIDEMIA, UNSPECIFIED Status: Chronic Qualifiers: (4) Secondary pancreatic insufficiency Code(s): K86.89 - OTHER SPECIFIED DISEASES OF PANCREAS Status: Chronic Comment: due to Pancreatic excision (5) DKA (diabetic ketoacidoses) Code(s): E13.10 - OTH DIABETES MELLITUS WITH KETOACIDOSIS WITHOUT COMA Status : Resolved Qualifiers: (6) Hyponatremia Code(s): E87.1 - HYPO-OSMOLALITY AND HYPONATREMIA Status: Resolved - Plan cont current plan of care improve glucose control, DM2 TEACHING * .
[2017-12-10] MEDS: Morphine 5 MG/ML SYRINGE SLOW IVP PRN (21:15)
[2017-12-11] MEDS ORDERED: diphenhydrAMINE 50 MG/ML VIAL IVP PRN (00:14)
[2017-12-11] MEDS: Insulin Regular 300 UNITS/3 ML VIAL SC PRN ×3 (00:46→15:15)
[2017-12-11] MEDS: Morphine 5 MG/ML SYRINGE SLOW IVP PRN ×2 (01:46→05:22)
[2017-12-11] MEDS: 1/2 NS w/KCL 20 mEq 1,000 ML IV SCH ×2 (01:47→11:44)
[2017-12-11 06:01] LABS: Anion Gap 9 mmol/L (10-20); BUN (Urea Nitrogen) Less than 4 mg/dL (7.0-18.7); Calc. Creatinine Clearance 107 mL/min (70-130); Calcium 7.9 mg/dL (7.8-10.44); Carbon Dioxide 23 mmol/L (22-29); Chloride 107 mmol/L (98-107); Estimated GFR-MDRD Greater than 90; Glucose 154 mg/dL (70-105); Potassium 4.1 mmol/L (3.5-5.1); Sodium 135 mmol/L (136-145)
[2017-12-11 08:03] VITALS: BP 121/61; TEMP 98.3
[2017-12-11] MEDS ORDERED: HYDROcodone/Acetaminophen 5/325 mg Tablet PO PRN ×2 (08:19)
[2017-12-11] MEDS: Enoxaparin Sodium 40 MG/0.4 ML SYRINGE SC SCH (08:43)
[2017-12-11] MEDS: Insulin Detemir 100 UNITS/ML 15 UNITS in Pre-Filled Syringe 1 EACH SC SCH (09:10)
[2017-12-11] MEDS ORDERED: LIPASE PO SCH (13:00)
[2017-12-11] MEDS ORDERED: AMYLASE PO SCH (13:00)
[2017-12-11] MEDS ORDERED: Pancrelipase DR 12000 1 CAP PO SCH (13:00)
[2017-12-11] MEDS ORDERED: PROTEASE PO SCH (13:00)
--- NOTE | 2017-12-11 22:13 | DIS ---
DATE OF ADMISSION: 12/09/2017 DATE OF DISCHARGE: 12/11/2017 CONDITION AT THE TIME OF DISCHARGE: Stable and improved. DISCHARGE DISPOSITION: Home. PRIMARY CARE PHYSICIAN: Dean Vazquez M.D. PRIMARY BOARDING MACHINE OPERATOR: Dr. Mulligan. DISCHARGE MEDICATIONS: Resume home medications as follows: Protonix 40 mg p.o. b.i.d., insulin pump as prior, Creon 36,000 units 2 capsules p.o. q.i.d. DISCHARGE DIAGNOSES: 1. Diabetic ketoacidosis, resolved. 2. Diabetes mellitus type 1. 3. History of chronic pancreatitis. 4. History of failed islet cell transplantation. 5. Dyslipidemia. 6. Secondary pancreatic insufficiency. 7. Hyponatremia spurious secondary to hyperglycemia. 8. Moderate protein calorie malnutrition with a BMI of 17.4. HISTORY OF PRESENTING ILLNESS: Ms. Alamo is a very pleasant 37-year-old female with known history of diabetes mellitus type 1, and chronic pancreatitis who presented to the emergency room with complain ts of abdominal pain, nausea, and vomiting. She was found to be in diabetic ketoacidosis and was sta rted on DKA protocol with IV fluids, insulin drip and electrolyte replacement and was admitted to [facility]. She had pseudohyponatremia secondary to hyperglycemia as well as pseudohyperkalemia due to metabo lic acidosis. Please see admission history and physical for further details. The patient had significant improvement in her diabetic ketoacidosis with intervention as mentioned a nikki. She was eventually changed to insulin sliding scale. Her pump was not used in the hospital be cause of acute DKA protocol. Eventually, she was back to her baseline, but was still having some abd ominal pain and nausea, but her DKA has resolved. She was seen and examined this morning by myself p rior to discharge and I discussed the discharge plan with her. The patient reported that she will re start her insulin pump when she gets home. She has received long-acting insulin in the form of 15 un its of detemir insulin in the morning today. She will follow up closely with her primary endocrinolo gist, Dr. Mulligan as an outpatient. She did report hypoglycemic episodes during the middle of the nig ht and polyphagia, polyuria and excessive thirst. She was counseled to go back to her endocrinologis t. It seems like her insulin dose is not working very well with her, especially given that she has br ittle diabetes. She was also instructed to resume her Creon on discharge which she is on for chronic pancreatitis and pancreatic insufficiency issues. PHYSICAL EXAMINATION: She was seen and examined prior to discharge. PHYSICAL EXAMINATION: Include, VITAL SIGNS: Temperature 98.3, pulse of 83, respirations 18, saturating 98% on room air, blood press ure 121/61. GENERAL: No acute distress, awake, alert, oriented x3. She appears very thin and cachectic. HEART: Rate and rhythm is regular without any murmur, rubs or gallops. ABDOMEN: Mildly tender to palpation in the epigastric region. Soft, nondistended. No guarding, didi ound or rigidity. LABORATORY DATA: CBC showed a sodium of 135, potassium 4.1, chloride 107, bicarbonate 23, anion gap 9, BUN less than 4, creatinine 0.49, blood sugar 154-220. Her lipase upon presentation was 4. Her b eta hydroxybutyrate upon presentation was 9.52. At this time, she is otherwise asymptomatic and agreeable for the discharge. All the pain medication s were stopped and she tolerated this change very well. Total time spent in the discharge of this patient 32 minutes including face to face interaction.
== END 2017-12-11 15:33 | disposition home or self-care (01) | DRG 638 ==
LOC: ERS 04:09 → CCU 07:10 → 3SE 12-10 20:56
PROVIDERS: ADMIT Hospitalist; ATTEND Hospitalist
DX: E10.10 Type 1 diabetes mellitus with ketoacidosis without coma (principal); E87.1 Hypo-osmolality and hyponatremia; E44.0 Moderate protein-calorie malnutrition; E87.5 Hyperkalemia; K86.89 Other specified diseases of pancreas; Z68.1 Body mass index [BMI] 19.9 or less, adult; Z96.41 Presence of insulin pump (external) (internal); E78.5 Hyperlipidemia, unspecified; Z87.19 Personal history of other diseases of the digestive system
CPT/HCPCS: 36415; 36416; 80048; 80053; 82010; 82330; 82803; 83690; 83735; 84100; 85025; 94760; 96361; 96374; 96375; 96376; J2270; A4216; J1200; J1610; J1650; J1815; J2405; J7050

== ENCOUNTER 2017-12-24 20:06 | Observation (INO) | payer BC ==
[2017-12-24] MEDS ORDERED: Ondansetron HCl/PF 4 MG/2 ML Vial ONE (20:59)
[2017-12-24 21:20] LABS: Band 1 % (5-11); Hemoglobin 11.9 g/dL (12.0-16.0); Lymphocytes 34 % (21-51); MDiff Complete? YES; Mean Corpuscular HGB CONC 30.5 g/dL (32.0-36.0); Mean Corpuscular Hemoglobin 25.9 pg (27.0-31.0); Mean Corpuscular Volume 84.8 fl (81.0-99.0); Mean Platelet Volume 8.4 fL (7.4-10.4); Monocytes 5 % (0-10); Neutrophil 59 % (42-75); PLT Morphology Comment Appears Increased; Platelet Count 526 thou/uL (130-400); RBC Distribution Width 15.7 % (11.5-14.5); Red Blood Cell (RBC) Count 4.59 mill/uL (4.20-5.40)
[2017-12-24 21:52] LABS: ALT (SGPT) 64 U/L (8-55); Alkaline Phosphatase 122 U/L (40-150); BUN (Urea Nitrogen) 6 mg/dL (7.0-18.7); Bilirubin, Total 0.4 mg/dL (0.2-1.2); CK (CPK) 144 U/L (29-168); Calc. Creatinine Clearance 0 mL/min (70-130); Calcium 9.7 mg/dL (7.8-10.44); Carbon Dioxide 21 mmol/L (22-29); Chloride 85 mmol/L (98-107); Estimated GFR-MDRD 41; Globulin 3.8 g/dL (2.4-3.5); Glucose 1028 mg/dL (70-105); Sodium 123 mmol/L (136-145)
[2017-12-24] MEDS ORDERED: diphenhydrAMINE 50 MG/ML VIAL ONE (21:54)
[2017-12-24 22:02] LABS: AST (SGOT) 66 U/L (5-34); Anion Gap 23 mmol/L (10-20); Magnesium 2.1 mg/dL (1.6-2.6); Phosphorus 5.7 mg/dL (2.3-4.7); Potassium 4.5 mmol/L (3.5-5.1); Protein, Total 7.5 g/dL (6.0-8.3)
[2017-12-24 22:20] LABS: Base Excess-Venous 0.4 mmol/L (-30.0-30.0); Bicarbonate (HCO3v) 24.3 mmol/L (1.0-85.0); CO2 Tension (PvCO2) 35.9 mmHg (41.0-51.0); Calcium, Ionized 1.04 mmol/L (1.12-1.32); Hemoglobin - Calc 12.8 g/dL (12.0-18.0); O2 Tension (PvO2) 55.7 mmHg (35.0-45.0); Potassium 5.6 mmol/L (3.4-4.7); T. Carbon Dioxide 25.4 mmol/L (1.0-85.0); pH (Venous) 7.438 (7.35-7.45); vO2 Saturation-calc 89.8 % (0.0-100.0)
[2017-12-24] MEDS ORDERED: Insulin Regular 300 UNITS/3 ML VIAL ONE (22:26)
[2017-12-25 00:56] LABS: Bilirubin Negative (Negative); Blood, Urine Negative (Negative); Clarity CLEAR (Clear); Glucose, Urine (Dipstick) >=1000 mg/dL (Negative); Leukocyte Negative (Negative); Nitrite Negative (Negative); Protein, Urine (Dipstick) Negative (Neg-Trace); Specific Gravity, Urine 1.034 (1.002-1.036); Urobilinogen 0.2 mg/dL (0.2-1.0)
[2017-12-25] MEDS ORDERED: Ondansetron HCl/PF 4 MG/2 ML Vial IVP PRN (01:02)
[2017-12-25] MEDS ORDERED: Sodium Chloride 0.9% 1,000 ML IV SCH (01:02)
[2017-12-25] MEDS ORDERED: Acetaminophen 325 MG TAB PO PRN ×2 (01:02→02:33)
[2017-12-25] MEDS ORDERED: Ondansetron ODT 4 MG TAB SL PRN (01:02)
[2017-12-25 01:13] VITALS: BMI 17.4
[2017-12-25] MEDS ORDERED: diphenhydrAMINE 50 MG/ML VIAL IVP SCH (01:30)
[2017-12-25] MEDS ORDERED: Dextrose 50% Abboject 50 ML SYRINGE IVP PRN (01:31)
[2017-12-25] MEDS ORDERED: Dextrose 5% in Water 1,000 ML IV PRN (01:31)
[2017-12-25] MEDS ORDERED: Enoxaparin Sodium 40 MG/0.4 ML SYRINGE SC SCH (02:30)
[2017-12-25] MEDS ORDERED: Ondansetron ODT 4 MG TAB PO PRN (02:33)
[2017-12-25] MEDS ORDERED: hydrOXYzine 25 MG TAB PO PRN (02:33)
[2017-12-25] MEDS ORDERED: HYDROcodone/Acetaminophen 5/325 mg Tablet PO PRN (02:33)
--- NOTE | 2017-12-25 04:29 | HP ---
PRIMARY CARE PHYSICIAN: Dr. Dean Vazquez. PRIMARY WEIGHTS AND MEASURES SEALER: Dr. Yandy Mulligan. DATE OF ADMISSION: 12/25/2017 TIME OF SERVICE: 02:15 CHIEF COMPLAINT: High sugars. HISTORY OF PRESENT ILLNESS: Ms. Alamo is a 37-year-old female with history of diabetes mellitus type 1, recurrent pancreatitis, status post pancreatectomy about a year ago, who subsequently comes in to night for another episode of high sugars. Patient was here from 12/11/2017 to 12/13/2017 for elevated sugars and DKA, was discharged home in ort order. She did well until about 3 days ago. She started having increasing sugars, this was acco mpanied by nausea, vomiting, leg cramps, and some diarrhea. Today, she was feeling particularly poorly, sugars kept reading high, so she came to the emergency de partment for evaluation. Here, her blood glucose on lab draw was then found to be 1028. A pH was normal, she has beta-hydroxy butyrate in her blood secondary to her anorexia, but the rest of her labs were fairly normal. We kvng e called for admission. Patient is feeling much better now. Repeat blood sugar since arrival on the floor is down to 419. S he did not have any nausea and is feeling much better overall. PAST MEDICAL HISTORY: 1. Diabetes mellitus, type 1. She currently uses an insulin pump with an implanted sensor. She is followed by Dr. Mulligan and seen her a couple of times in the last 4 months due to see her again very soon. 2. Pancreatitis last episode was in 02/2017. She has undergone pancreatectomy. PAST SURGICAL HISTORY: 1. Pancreatectomy. 2. Insulin pump and sensory implantation. HOME MEDICATIONS: 1. Insulin pump to the basal of 1.02 and her bolus is an algorithm based on the sensor. 2. Klonopin 0.5 mg p.o. b.i.d. p.r.n. anxiety. ALLERGIES: KEFLEX, CODEINE, IODINE, PROPOFOL, and VANCOMYCIN. These cause hives. FAMILY HISTORY: Significant for diabetes mellitus type 2. No history of clotting or bleeding disord er, no immune dysfunction. SOCIAL HISTORY: Negative for habits x3. She does live with family. REVIEW OF SYSTEMS: A 10-point review of systems was performed and was negative for all systems excep t as stated as per HPI. PHYSICAL EXAMINATION: VITAL SIGNS: Temperature is 98.2, pulse 99, blood pressure 119/65, respiratory rate 16, satting 99% on room air. GENERAL: She is awake. She is alert and oriented x3. She is a thin, frail-looking white female, ap pears to be in no acute distress. HEENT: Normocephalic and atraumatic. Pupils are equal and react to light bilaterally, mucous membra eric are moist. She has no visible lesions. She has no thrush. NECK: Neck is supple. There is no lymphadenopathy, JVD, or thyromegaly. CHEST: Lungs are clear. She has good air movement with symmetrical chest excursion. There is no pr olonged expiratory phase. No wheezes, rales, or rhonchi. CARDIOVASCULAR: Shows normal S1 and S2. There is no S3 or S4. I do not appreciate any murmurs. ABDOMEN: Soft. It is nontender, nondistended. She has got hypoactive bowel sounds present in all 4 quadrants. Her previous midline incisional scar is well healed. EXTREMITIES: No cyanosis, no clubbing, no edema. She has 2+ peripheral pulse of the dorsalis pedis and posterior tibial arteries bilaterally. SKIN: Warm, moist, and well perfused. She has no rash or lesions. She has multiple tattoos present over her bilateral upper extremities and these appeared to be intact, uninfected. MUSCULOSKELETAL: Exam is normal to inspection. She has no joint inflammation. No palpable effusion s. NEUROLOGIC: Cranial nerves II-XII grossly intact. She has no focal neurologic deficits, normal spee ch pattern, and 5/5 strength in all 4 extremities. LABORATORY DATA: Sodium 123 corrected back to normal based on her sugar, potassium 4.5, chloride 85, bicarbonate 21, BUN 6, creatinine 1.44 from about 0.5 two weeks ago. Calcium was 9.7, glucose 1028, mag is 2.1, and phosphorus is 5.7. Liver function is normal except for an AST mildly elevated at 66 and ALT of 64. CBC showed a white c ount of 9000, hemoglobin 11.9, hematocrit 38.9, platelet count is 526,000. She had 81% bandemia. VB G showed a pH of 7.44, pCO2 of 36, pO2 of 56, calculated bicarb of 25, and oxygen saturation 90%. Be ta-hydroxybutyrate was elevated at 1.76. Repeat Accu-Chek 6 hours after presentation was 419. ASSESSMENT AND PLAN: 1. Hyperglycemic syndrome. There is no evidence of diabetic ketoacidosis. She does have beta hydro xybutyrate present in her blood, but her pH is normal. I think likely this represents her nausea, vo miting, and dehydration. This time, her sugars have markedly improved on sliding scale. We will con tinue and start feeding her in the morning. Likely need to reconnect to her pump and watch her for t he first half of the day and see how her insulin pump response. There may be a problem with her prot ocol, and she may not be getting bolused adequately for what she is eating. 2. Pseudohyponatremia secondary to elevated blood glucose. Recheck labs in the morning. 3. Acute kidney injury. Creatinine is at 3 times her normal level. She is getting IV fluids now, e nsure correction. Recheck her basic metabolic in the morning. 4. Mild LFT elevation, likely secondary to nausea and vomiting. 5. Moderate dehydration as above.
[2017-12-25] MEDS: Sodium Chloride 0.9% 1,000 ML IV SCH ×4 (04:34→21:45)
[2017-12-25] MEDS: HYDROcodone/Acetaminophen 10/325 mg Tablet PO PRN ×2 (04:36→15:30)
[2017-12-25 05:07] LABS: Hemoglobin A1c 11.1 % (4.0-6.0)
[2017-12-25] MEDS: HumaLOG 300 UNITS/3 ML VIAL SC PRN ×4 (06:02→21:42)
[2017-12-25] MEDS: diphenhydrAMINE 50 MG/ML VIAL IVP PRN ×3 (09:27→21:34)
[2017-12-25] MEDS: Famotidine 20 MG TAB PO SCH ×2 (09:28→19:49)
[2017-12-25] MEDS ORDERED: Lidocaine 2% Viscous Solution 20 ML, Aluminum & Magnesium Hydroxide 30 ML, Donnatal Eli... SSW SCH ×3 (11:30)
[2017-12-25] MEDS ORDERED: Lidocaine 2% Viscous Solution 20 ML, Aluminum & Magnesium Hydroxide 30 ML, Donnatal Eli... SSW PRN ×3 (12:15)
[2017-12-25] MEDS: Metoclopramide HCl 10 MG/2 ML VIAL IVP SCH ×4 (13:11→21:17)
--- NOTE | 2017-12-25 18:16 | PDOC.PN ---
- Subjective Encounter Start Date: 12/25/17 Encounter Start Time: 18:00 Subjective: f/u for mild DKA with abd pain and nausea. Abd pain mid-epigastric -: and cramping. Taken Benadryl, GI cocktail and [place]. Overall -: glucose trend improved with IVF's, ISS. - Objective Resuscitation Status: Resuscitation Status FULL:Full Resuscitation MAR Reviewed: Yes Vital Signs & Weight: Vital Signs (12 hours) Temp Pulse Resp BP Pulse Ox 12/25/17 15:35 99.1 F 85 16 123/74 98 12/25/17 11:28 98.8 F 78 16 114/76 98 12/25/17 09:25 98.0 F 84 16 12/25/17 07:37 98.0 F 84 16 115/73 98 Weight Admit Weight 95 lb 3.2 oz Weight 95 lb 3.2 oz I&O: 12/24/17 12/25/17 12/26/17 06:59 06:59 06:59 Output Total 1000 Balance -1000 Result Diagrams: 12/24/17 20:57 12/24/17 20:57 Additional Labs: Accuchecks 12/25/17 12/25/17 12/25/17 16:58 11:05 06:03 POC Glucose 341 H 441 H 451 H Laboratory Tests 12/24/17 12/25/17 20:57 04:35 Hemoglobin A1c 11.1 H B-Hydroxybutyrate 1.76 H EKG Reviewed by me: Yes (Tele - N/A) Phys Exam - Physical Examination Constitutional: NAD HEENT: PERRLA, oral pharynx no lesions Neck: no JVD, supple Respiratory: no wheezing, clear to auscultation bilateral Cardiovascular: RRR Gastrointestinal: soft, non-tender, no distention, positive bowel sounds Musculoskeletal: no edema, pulses present Neurological: normal sensation, moves all 4 limbs Psychiatric: A&O x 3 Skin: normal turgor, cap refill <2 seconds Dx/Plan (1) Diabetes type 1, uncontrolled Code(s): E10.65 - TYPE 1 DIABETES MELLITUS WITH HYPERGLYCEMIA Status: Acute Qualifiers: Comment: A1C 11.1, resume Insulin pump, ISS, continue IVF's (2) Gastroparesis Code(s): K31.84 - GASTROPARESIS Status: Acute Comment: Supportive measures, discussed Reglan but pt states can not take due to emesis (3) Secondary pancreatic insufficiency Code(s): K86.89 - OTHER SPECIFIED DISEASES OF PANCREAS Status: Chronic Comment: due to Pancreatic excision (4) Hyponatremia Code(s): E87.1 - HYPO-OSMOLALITY AND HYPONATREMIA Status: Acute Comment: Pseudohyponatremia due to hyperglycemia - Plan out of bed/ambulate, DVT proph w/SCDs Stable overall -: Resume insulin pump -: Continue IVF's -: Pain control with Morphine Sulfate/[place] -: AM lab: CMP * .
[2017-12-25] MEDS: Morphine 5 MG/ML SYRINGE SLOW IVP PRN (19:50)
[2017-12-26] MEDS: Morphine 5 MG/ML SYRINGE SLOW IVP PRN ×3 (01:31→12:10)
[2017-12-26] MEDS: diphenhydrAMINE 50 MG/ML VIAL IVP PRN ×3 (03:22→15:50)
[2017-12-26] MEDS: HumaLOG 300 UNITS/3 ML VIAL SC PRN ×3 (03:30→16:13)
[2017-12-26] MEDS: Sodium Chloride 0.9% 1,000 ML IV SCH ×2 (04:25→13:28)
[2017-12-26 05:24] LABS: #Eosinphils 0.1 thou/uL (0.0-0.7); #Lymphocytes 5.4 thou/uL (1.20-3.40); #Monocytes 0.5 thou/uL (0.11-0.59); #Neutrophils 5.3 thou/uL (1.40-6.50); %Basophils 0.3 % (0.0-1.0); %Lymphocytes 47.6 % (21.0-51.0); %Monocytes 4.2 % (0.0-10.0); %Neutrophils 46.9 % (42.0-75.0); Hemoglobin 9.4 g/dL (12.0-16.0); Mean Corpuscular HGB CONC 30.6 g/dL (32.0-36.0); Mean Corpuscular Hemoglobin 25.4 pg (27.0-31.0); Mean Platelet Volume 8.1 fL (7.4-10.4); Platelet Count 399 thou/uL (130-400); RBC Distribution Width 15.3 % (11.5-14.5); Red Blood Cell (RBC) Count 3.69 mill/uL (4.20-5.40); White Blood Cell (WBC) Count 11.2 thou/uL (4.8-10.8)
[2017-12-26 05:31] LABS: ALT (SGPT) 37 U/L (8-55); AST (SGOT) 31 U/L (5-34); Alkaline Phosphatase 72 U/L (40-150); Anion Gap 9 mmol/L (10-20); BUN (Urea Nitrogen) Less than 4 mg/dL (7.0-18.7); Bilirubin, Total Less than 0.2 mg/dL (0.2-1.2); Calc. Creatinine Clearance 83 mL/min (70-130); Calcium 7.9 mg/dL (7.8-10.44); Carbon Dioxide 22 mmol/L (22-29); Chloride 104 mmol/L (98-107); Estimated GFR-MDRD Greater than 90; Globulin 2.4 g/dL (2.4-3.5); Glucose 275 mg/dL (70-105); Magnesium 1.8 mg/dL (1.6-2.6); Potassium 3.4 mmol/L (3.5-5.1); Protein, Total 5.4 g/dL (6.0-8.3); Sodium 132 mmol/L (136-145)
[2017-12-26] MEDS: Famotidine 20 MG TAB PO SCH (09:36)
--- NOTE | 2017-12-26 10:13 | DIS ---
DATE OF ADMISSION: 12/25/2017 DATE OF DISCHARGE: 12/26/2017 DISCHARGE DIAGNOSES: 1. Diabetes mellitus type 1, uncontrolled. 2. Diabetic gastroparesis. 3. Secondary pancreatic insufficiency status post pancreatectomy. 4. Hyponatremia secondary to hyperglycemia, improved. 5. Anxiety disorder. 6. Acute kidney injury secondary to dehydration, resolved. CONSULTATIONS: None. PERTINENT LABORATORY DATA AND X-RAY FINDINGS: Sodium ranged between 123-132, potassium ranged betwee n 3.4-4.5, creatinine ranged between 0.63-1.44, hemoglobin A1c 11.1, and magnesium 1.8. LFTs within normal limits. CBC showed white blood cell count ranging between 9.0-11.2, hemoglobin ranged between 9.4-11.9. Beta hydroxybutyrate level 1.76 on 12/24/2017. HOSPITAL COURSE: The patient was placed in observation status after initially presenting with hyperg lycemia in the context of diabetes mellitus type 1, essentially uncontrolled. Patient without formal diagnosis of diabetic ketoacidosis, treated with aggressive IV fluid hydration and initiated on insu maxime sliding scale. The patient's initial glucose was greater than 1000 improving to the 200 range by the time of discharge. Patient with complaints of abdominal pain, diagnosed with gastroparesis chencho mary symptomatically with IV and oral medications. The patient overall remained clinically stable thr oughout the hospital course improving and abdominal pain and discomfort with supportive measures and tolerating regular oral intake. The patient overall is clinically stable and ready for discharge on 12/26/2017. DISCHARGE MEDICATIONS: 1. Clonazepam 0.5 mg p.o. b.i.d. 2. Insulin pump with NovoLog continuously. 3. Meronon DR 2 capsules p.o. q.i.d. FOLLOWUP: The patient may follow up with her primary care provider, Dr. Dean Vazquez within 7 days of discharge. Patient will follow up with her primary shearing machine operator, Dr. Mulligan and to call [facility] for appointment time and date. CONDITION ON DISCHARGE: Stable. ACTIVITY: Ad en. DIET: ADA. CODE STATUS: FULL. DISPOSITION: Home 12/26/2017.
[2017-12-26] MEDS: Metoclopramide HCl 10 MG/2 ML VIAL IVP SCH (12:02)
[2017-12-26 15:19] VITALS: BP 128/84; TEMP 98.8
== END 2017-12-26 16:17 | disposition home or self-care (01) ==
LOC: ERS 20:06 → 2SW 12-25 00:25 → EEVIPCON 12-25 00:25
PROVIDERS: ADMIT Internal Medicine Infectious Disease; ATTEND Internal Medicine Infectious Disease
DX: E10.65 Type 1 diabetes mellitus with hyperglycemia (principal); E10.43 Type 1 diabetes mellitus with diabetic autonomic (poly)neuropathy; K31.84 Gastroparesis; Z90.411 Acquired partial absence of pancreas; K86.81 Exocrine pancreatic insufficiency; E87.1 Hypo-osmolality and hyponatremia; E86.0 Dehydration; N28.9 Disorder of kidney and ureter, unspecified; F41.9 Anxiety disorder, unspecified; Z79.899 Other long term (current) drug therapy; Z88.5 Allergy status to narcotic agent; Z88.1 Allergy status to other antibiotic agents; Z91.041 Radiographic dye allergy status; Z96.41 Presence of insulin pump (external) (internal); Z90.49 Acquired absence of other specified parts of digestive tract; Z98.890 Other specified postprocedural states
CPT/HCPCS: 36415; 36416; 80053; 81003; 82010; 82330; 82550; 82803; 83036; 83735; 84100; 85025; 96360; 96361; 96372; 96374; 96375; 96376; 99285; J2270; A4216; G0378; J1200; J1650; J1815; J2405; J2765

== ENCOUNTER 2018-01-03 17:56 | Observation (INO) | payer BC ==
[2018-01-03 19:01] LABS: Base Excess-Venous -2.3 mmol/L (-30.0-30.0); Bicarbonate (HCO3v) 19.4 mmol/L (1.0-85.0); CO2 Tension (PvCO2) 25.4 mmHg (41.0-51.0); Calcium, Ionized 0.83 mmol/L (1.12-1.32); Hemoglobin - Calc 14.1 g/dL (12.0-18.0); O2 Tension (PvO2) 78.8 mmHg (35.0-45.0); T. Carbon Dioxide 20.1 mmol/L (1.0-85.0); pH (Venous) 7.491 (7.35-7.45); vO2 Saturation-calc 96.8 % (0.0-100.0)
[2018-01-03 19:21] LABS: #Lymphocytes 2.7 thou/uL (1.20-3.40); #Monocytes 0.5 thou/uL (0.11-0.59); %Basophils 0.4 % (0.0-1.0); %Eosinophils 0.3 % (0.0-10.0); %Monocytes 5.6 % (0.0-10.0); %Neutrophils 64.7 % (42.0-75.0); Hemoglobin 11.6 g/dL (12.0-16.0); Mean Corpuscular Hemoglobin 25.1 pg (27.0-31.0); Mean Corpuscular Volume 81.1 fl (81.0-99.0); Mean Platelet Volume 9.1 fL (7.4-10.4); Platelet Count 635 thou/uL (130-400); RBC Distribution Width 16.1 % (11.5-14.5); Red Blood Cell (RBC) Count 4.62 mill/uL (4.20-5.40); White Blood Cell (WBC) Count 9.3 thou/uL (4.8-10.8)
[2018-01-03] MEDS ORDERED: Insulin Regular 100 units/100 ml in NS IVPB SCH (19:30)
[2018-01-03 20:02] LABS: ALT (SGPT) 63 U/L (8-55); AST (SGOT) 78 U/L (5-34); Albumin 4.1 g/dL (3.5-5.0); Alkaline Phosphatase 107 U/L (40-150); Anion Gap 18 mmol/L (10-20); BUN (Urea Nitrogen) 6 mg/dL (7.0-18.7); Bilirubin, Total 0.2 mg/dL (0.2-1.2); Calc. Creatinine Clearance 0 mL/min (70-130); Calcium 9.9 mg/dL (7.8-10.44); Carbon Dioxide 23 mmol/L (22-29); Chloride 91 mmol/L (98-107); Estimated GFR-MDRD 67; Globulin 3.3 g/dL (2.4-3.5); Magnesium 2.2 mg/dL (1.6-2.6); Phosphorus 4.3 mg/dL (2.3-4.7); Potassium 4.1 mmol/L (3.5-5.1); Protein, Total 7.4 g/dL (6.0-8.3); Sodium 128 mmol/L (136-145)
[2018-01-03 20:05] LABS: Glucose 663 mg/dL (70-105)
[2018-01-03] MEDS ORDERED: diphenhydrAMINE 50 MG/ML VIAL ONE ×2 (20:19→23:09)
[2018-01-03 20:57] LABS: Bilirubin Negative (Negative); Blood, Urine Trace (Negative); Clarity CLEAR (Clear); Glucose, Urine (Dipstick) >=1000 mg/dL (Negative); Leukocyte Negative (Negative); Nitrite Negative (Negative); Protein, Urine (Dipstick) Negative (Neg-Trace); Specific Gravity, Urine 1.042 (1.002-1.036); Urobilinogen 0.2 mg/dL (0.2-1.0)
[2018-01-03 21:03] LABS: Yeast-AUWi Flag 57.1 (0-25.0)
[2018-01-03 21:11] LABS: Bacteria/HPF None Seen HPF (None Seen); RBC/HPF 0-3 HPF (0-3); Squamous Epithelial 0-3 HPF (0-3); WBC/HPF 0-3 HPF (0-3)
[2018-01-03 21:12] LABS: Hyaline Casts/LPF NONE SEEN LPF (0-3 Hyaline); Yeast-All Forms 1+ HPF (None Seen)
[2018-01-04] MEDS ORDERED: HYDROcodone/Acetaminophen 5/325 mg Tablet ONE (00:08)
[2018-01-04] MEDS ORDERED: Ondansetron ODT 4 MG TAB PO PRN (01:00)
[2018-01-04] MEDS ORDERED: Dextrose 5% in Water 1,000 ML IV PRN (01:00)
[2018-01-04] MEDS ORDERED: Dextrose 50% Abboject 50 ML SYRINGE SLOW IVP PRN (01:00)
[2018-01-04] MEDS ORDERED: HumaLOG 300 UNITS/3 ML VIAL SC PRN (01:00)
[2018-01-04] MEDS ORDERED: hydrALAZINE 20 MG/ML VIAL SLOW IVP PRN (01:00)
[2018-01-04] MEDS ORDERED: Ondansetron HCl/PF 4 MG/2 ML Vial IVP PRN ×2 (01:00→01:01)
[2018-01-04] MEDS ORDERED: Acetaminophen 325 MG TAB PO PRN (01:00)
[2018-01-04] MEDS ORDERED: Lorazepam 1 MG TAB PO PRN (01:00)
[2018-01-04] MEDS ORDERED: Ondansetron ODT 4 MG TAB SL PRN (01:01)
[2018-01-04] MEDS ORDERED: HYDROcodone/Acetaminophen 5/325 mg Tablet PO PRN ×2 (01:01)
[2018-01-04] MEDS ORDERED: Sodium Chloride 0.9% 1,000 ML IV SCH (01:01)
--- NOTE | 2018-01-04 01:14 | HP ---
PRIMARY CARE PHYSICIAN: Dr. Vazquez. CHIEF COMPLAINT: Not feeling well and blood pressure is elevated. HISTORY OF PRESENT ILLNESS: Ms. Alamo is a pleasant 37-year-old female that has a history of type 1 diabetes mellitus. This is the result of having a pancreatectomy. The patient was recently seen in our hospital for uncontrolled blood glucose with blood sugars as high as in the 1000. She was stabil ized and discharged home. The patient uses an insulin pump and has been using an insulin pump for past 2 months. She says the first month went fairly well and then recently she has been having tro uble keeping her blood sugars regulated. She says yesterday, she went to bed, not feeling very well. She says she did not pay attention to what her blood sugar was last night. She says she slept fine through the night then in the morning, she woke up and her blood glucose was reading high on her pum p. She says that she will program in the blood glucose amount and then it will bolus her with a cert ain amount of insulin for correction. She says that this morning, she believes that the machine gave her about 7 units, she says she checked it about 2 or 3 times prior to coming into the ER, she says each time it read "high" but did not give her a number and she says that she self corrected a few rafi es, but then she started feeling worse and was feeling dizzy and shaking and started vomiting and thi s is when she came to the ER for evaluation. When she arrived in the emergency room, her blood sugar was 663. She was not acidotic, however, and there was no increase in anion gap and she was initiall y placed on an insulin drip and then her blood sugars have quickly fallen to the high 200, low 300 ra nge. Currently, she is feeling "much better." She says she does not know why her blood glucoses hav e been going. She does admit, though, that she has not seen Dr. Mulligan, her stone mill operator since sh e left the hospital on her last admission. REVIEW OF SYSTEMS: Constitutional: No fevers, chills, no night sweats, no weight loss. HEENT: No headaches, no dizziness, no visual changes, no sore throat, rhinorrhea, neck pain or adenopathy. Pul monary: No hemoptysis, no cough, no wheezing. Cardiovascular: She denies any chest pain, no shortn ess of breath, no PND, no orthopnea. Gastrointestinal: She had some nausea and vomiting earlier tod ay. No fevers, no chills and no diarrhea. No loose stools. Genitourinary: No dysuria, no hematuri a. Musculoskeletal: No muscle pains, weakness or joint pains. Neurologic: No focal weakness, numb ness, no seizures. Psychiatric: No symptoms of anxiety or depression. Skin and Integument: No ski n changes. No rash. PAST MEDICAL HISTORY: Significant for chronic pancreatitis. 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 She developed diabetes mellitus type 1, about a year ago due to a compli cation of a stenting procedure which resulted in a complete pancreatectomy. PAST SURGICAL HISTORY: She has had a pancreatectomy, insulin pump implant and sensor implant, cholec ystectomy, appendectomy, and splenectomy and a splenectomy was also the result of this stent migratio n complication. ALLERGIES: PROPOFOL, IV DYE, as well as KEFLEX and VANCOMYCIN. FAMILY HISTORY: No history of any inheritable diseases. SOCIAL HISTORY: She is a nonsmoker, nondrinker. She is and has no children. MEDICATIONS: Insulin pump and Protonix. PHYSICAL EXAMINATION: GENERAL: She is alert and oriented. She appears to be in no acute distress. VITAL SIGNS: Blood pressure was 140/90, heart rate 106, respiratory rate of 18, temperature is 98.8. HEENT: Her pupils are equal, round, and reactive. Extraocular muscles are intact. Her sclerae are anicteric. Throat: No erythema, no exudates. NECK: No adenopathy, no bruits. LUNGS: Clear. There is no wheezing, no rales. CARDIOVASCULAR: She has a normal S1, S2. There is no S3 or S4. No murmurs, clicks or rubs. ABDOMEN: Soft. She has some mild diffuse tenderness. There is no rebound or guarding. Positive fo r bowel sounds. EXTREMITIES: There is no clubbing, cyanosis, no edema. NEUROLOGICALLY: The exam is nonfocal. SIGNIFICANT LABORATORY RESULTS: Sodium initially was 125, potassium 8.0, chloride 95, CO2 is 23, BUN of 6, creatinine 0.94, glucose was 663. Please note repeat potassium was 4.1. CBC: White blood ce ll count 9.3, hemoglobin 11.6, hematocrit is 37.5, platelet count was 635. Urinalysis was essentiall y negative. ASSESSMENT AND PLAN: This is a pleasant 37-year-old female that presents to the emergency room with poorly-controlled glucose. She is on an insulin pump in which it should autocorrect. It is unclear whether or not she is having some type of pump malfunction as she was just recently hospitalized for a very similar-type symptom. She will be monitored overnight. She is now off the insulin drip. We will allow her to do her self-corrections via the pump but with close monitoring with Accu-Cheks ever y 2 hours through the night and if she is stable in the morning, likely she can be discharged home an d I have urged her to see her stone mill operator as soon as possible to evaluate the pump to make sure t hat there is no malfunction and also to make sure that she is well trained in how to use the pump and how to self-correct.
[2018-01-04] MEDS: diphenhydrAMINE 50 MG/ML VIAL IVP PRN ×5 (01:40→20:58)
[2018-01-04] MEDS: Sodium Chloride 0.9% 1,000 ML IV SCH ×3 (01:43→18:08)
[2018-01-04 02:03] VITALS: BMI 16.9
[2018-01-04 04:43] LABS: Anion Gap 9 mmol/L (10-20); BUN (Urea Nitrogen) 5 mg/dL (7.0-18.7); Calc. Creatinine Clearance 88 mL/min (70-130); Calcium 8.5 mg/dL (7.8-10.44); Carbon Dioxide 28 mmol/L (22-29); Chloride 104 mmol/L (98-107); Estimated GFR-MDRD Greater than 90; Glucose 77 mg/dL (70-105); Potassium 3.1 mmol/L (3.5-5.1); Sodium 138 mmol/L (136-145)
[2018-01-04] MEDS: Famotidine 20 MG TAB PO SCH ×2 (07:43→20:04)
--- NOTE | 2018-01-04 07:47 | PDOC.PN ---
- Subjective Encounter Start Date: 01/04/18 Encounter Start Time: 07:45 Subjective: abd pain improved, nausea persists - Objective Resuscitation Status: Resuscitation Status FULL:Full Resuscitation MAR Reviewed: Yes Vital Signs & Weight: Vital Signs (12 hours) Temp Pulse Resp BP BP Pulse Ox 01/04/18 03:54 98.6 F 84 16 110/72 95 01/04/18 00:55 98.7 F 101 H 16 126/78 94 L Weight Weight 93 lb I&O: 01/03/18 01/04/18 01/05/18 06:59 06:59 06:59 Intake Total 1080 Balance 1080 Result Diagrams: 01/03/18 18:53 01/04/18 04:17 Additional Labs: Accuchecks 01/04/18 01/03/18 00:02 22:03 POC Glucose 146 H 274 H Phys Exam - Physical Examination Neck: no JVD Respiratory: clear to auscultation bilateral Cardiovascular: RRR, no significant murmur Gastrointestinal: soft, positive bowel sounds tender RUQ Musculoskeletal: no edema Dx/Plan (1) Abdominal pain Code(s): R10.9 - UNSPECIFIED ABDOMINAL PAIN Status: Acute Qualifiers: Abdominal location: generalized Qualified Code(s): R10.84 - Generalized abdominal pain (2) Nausea & vomiting Code(s): R11.2 - NAUSEA WITH VOMITING, UNSPECIFIED Status: Acute Qualifiers: Vomiting type: unspecified Vomiting Intractability: non-intractable Qualified Code(s): R11.2 - Nausea with vomiting, unspecified (3) Diabetes type 1, uncontrolled Code(s): E10.65 - TYPE 1 DIABETES MELLITUS WITH HYPERGLYCEMIA Status: Acute Qualifiers: Diabetes mellitus complication status: without complication Qualified Code( s): E10.65 - Type 1 diabetes mellitus with hyperglycemia Comment: A1C 11.1, resume Insulin pump, ISS, continue IVF's (4) Secondary pancreatic insufficiency Code(s): K86.89 - OTHER SPECIFIED DISEASES OF PANCREAS Status: Chronic Comment: due to Pancreatic excision - Plan cont iv fluids, trial po intake -: antiemetics -: frequent accu, etc * .
[2018-01-04] MEDS: Morphine 5 MG/ML SYRINGE SLOW IVP PRN ×3 (11:01→20:02)
[2018-01-04 16:58] LABS: Pregnancy Test - Urine (BHCG) Negative (Negative); Pregu Control Background? CLEAR/WHITE (CLR/WHITE); Pregu Control Bar Appear? YES (CONTROL BAR); Specific Gravity 1.042 (1.002-1.036)
[2018-01-04] MEDS ORDERED: Potassium Chloride 20 MEQ TAB PO SCH (17:00)
[2018-01-05] MEDS: Morphine 5 MG/ML SYRINGE SLOW IVP PRN ×3 (00:58→08:58)
[2018-01-05] MEDS: diphenhydrAMINE 50 MG/ML VIAL IVP PRN ×3 (00:58→08:56)
[2018-01-05 01:10] VITALS: BP 127/79
[2018-01-05] MEDS: Sodium Chloride 0.9% 1,000 ML IV SCH (04:36)
[2018-01-05 05:09] LABS: Anion Gap 9 mmol/L (10-20); BUN (Urea Nitrogen) 4 mg/dL (7.0-18.7); Calc. Creatinine Clearance 107 mL/min (70-130); Carbon Dioxide 22 mmol/L (22-29); Chloride 109 mmol/L (98-107); Estimated GFR-MDRD Greater than 90; Potassium 3.9 mmol/L (3.5-5.1); Sodium 136 mmol/L (136-145)
[2018-01-05 05:41] LABS: Glucose 54 mg/dL (70-105)
[2018-01-05] MEDS: Famotidine 20 MG TAB PO SCH (07:39)
[2018-01-05 08:39] VITALS: TEMP 98.1
--- NOTE | 2018-01-05 13:50 | DIS ---
ADMISSION DIAGNOSES: 1. Abdominal pain. 2. Nausea, vomiting. 3. Uncontrolled type 1 diabetes. 4. Secondary pancreatic insufficiency. HOSPITAL COURSE: While patient was in the hospital, the patient's insulin pump was restarted. The p atient was started on aggressive sliding scale. I discussed with the patient's understanding exactly the issues with regarding to the pump and due to recurrence of hospitalizations because it is same t chen. Apparently, she has been a poor followup per the nursing and history gathered from previous ysicians. We spoke with the patient extensively by how importance is to be complaint with followups outpatient with Dr. Mulligan, who was her mold filler plastic dolls. We spoke with Dr. Mluligan today, who stated that to adjust her rates of insulin. The patient had initially declined in doing so due to some conc erns; however, after speaking with the patient further, she was instructed to call the insulin compan y in order to change the rates of the insulin regimen, so that she did not have these values with reg ards to her sugars. Earlier this morning, she was found to have a couple of episodes of sugars below 60s; therefore, heart rate was changed because of this. She was instructed to follow up with endocr inologist on Monday. Appointment was setup. She stated that she would do so. After due to the zambrano ges that could be made to her pump and no further intubation required at this time, we will comfortab ly discharge this patient home. All questions were answered prior to discharge. DISPOSITION: To home. DISCHARGE CONDITION: Much improved when she first came in. DISCHARGE ACTIVITY: As tolerated. DISCHARGE MEDICATIONS: Please see home medication list. FOLLOWUP APPOINTMENTS: Follow up with primary care physician in 1 week as well as mold filler plastic dolls simone Dr. Mulligan on Monday, which is 3 days. DISCHARGE PLAN: Discharge planning was greater than 30 minutes.
--- NOTE | 2018-01-20 17:34 | EKG ---
Test Reason : ER INDICATION Blood Pressure : / mmHG Vent. Rate : 092 BPM Atrial Rate : 092 BPM P-R Int : 112 ms QRS Dur : 084 ms QT Int : 342 ms P-R-T Axes : 051 050 024 degrees QTc Int : 422 ms Normal sinus rhythm Nonspecific T wave abnormality Abnormal ECG Confirmed by DANNA CHRISTIE, KANE ([id number]), publishing editor GONZALEZ MARMOLEJO ([id number]) on 01/20/2018 5:33:37 PM Referred By: Confirmed By:KANE CLAY MD
== END 2018-01-05 11:10 | disposition home or self-care (01) ==
LOC: ERS 17:56 → 2SW 22:00
PROVIDERS: ADMIT Internal Medicine; ATTEND Internal Medicine
DX: R10.9 Unspecified abdominal pain (principal); E89.1 Postprocedural hypoinsulinemia; E13.65 Other specified diabetes mellitus with hyperglycemia; Z96.41 Presence of insulin pump (external) (internal); Z88.1 Allergy status to other antibiotic agents; Z88.5 Allergy status to narcotic agent; Z88.8 Allergy status to other drugs, medicaments and biological substances; Z91.041 Radiographic dye allergy status; Z79.4 Long term (current) use of insulin; Z90.410 Acquired total absence of pancreas; Z90.81 Acquired absence of spleen
CPT/HCPCS: 36415; 36416; 80048; 80053; 81003; 81015; 81025; 82010; 82330; 82803; 83735; 84100; 85025; 93005; 96361; 96365; 96366; 96375; 96376; J2270; A4216; G0378; J1200; J1815; J7050

== ENCOUNTER 2018-03-22 08:03 | Inpatient (IN) | payer BC ==
[2018-03-22 08:49] LABS: Hemoglobin 13.7 g/dL (12.0-16.0); Mean Corpuscular HGB CONC 32.4 g/dL (32.0-36.0); Mean Corpuscular Hemoglobin 26.4 pg (27.0-31.0); Mean Corpuscular Volume 81.6 fl (81.0-99.0); Mean Platelet Volume 9.2 fL (7.4-10.4); Platelet Count 374 thou/uL (130-400); RBC Distribution Width 16.1 % (11.5-14.5); White Blood Cell (WBC) Count 9.9 thou/uL (4.8-10.8)
[2018-03-22] MEDS ORDERED: Pantoprazole 40 MG VIAL ONE (08:54)
[2018-03-22] MEDS ORDERED: Metoclopramide HCl 10 MG/2 ML VIAL ONE (08:54)
[2018-03-22 09:03] LABS: Band 5 % (5-11); Lymphocytes 27 % (21-51); MDiff Complete? YES; Neutrophil 68 % (42-75); PLT Morphology Comment Appears Adequate; Polychromasia SLIGHT = 2-3 cells (100X) (0-2/hpf)
[2018-03-22] MEDS ORDERED: diphenhydrAMINE 50 MG/ML VIAL ONE (09:09)
[2018-03-22 09:20] LABS: ALT (SGPT) 60 U/L (8-55); AST (SGOT) 49 U/L (5-34); Albumin 4.5 g/dL (3.5-5.0); Alkaline Phosphatase 108 U/L (40-150); Anion Gap 16 mmol/L (10-20); BUN (Urea Nitrogen) 12 mg/dL (7.0-18.7); Bilirubin, Total 0.3 mg/dL (0.2-1.2); Calc. Creatinine Clearance 0 mL/min (70-130); Calcium 9.3 mg/dL (7.8-10.44); Carbon Dioxide 25 mmol/L (22-29); Chloride 92 mmol/L (98-107); Estimated GFR-MDRD 58; Globulin 3.7 g/dL (2.4-3.5); Potassium 3.9 mmol/L (3.5-5.1); Protein, Total 8.2 g/dL (6.0-8.3); Sodium 129 mmol/L (136-145)
[2018-03-22 09:36] LABS: BHCG - Serum Negative (NEGATIVE); Pregs Control Background? CLEAR/WHITE (CLR/WHITE); Pregs Control Bar Appear? YES (CONTROL BAR)
[2018-03-22 09:41] LABS: Glucose 681 mg/dL (70-105)
[2018-03-22 09:46] LABS: CKMB 2.3 ng/mL (0-6.6); Troponin I Less than 0.010 ng/mL (< 0.028)
[2018-03-22] MEDS ORDERED: Insulin Regular 100 units/100 ml in NS IVPB SCH (11:00)
[2018-03-22] MEDS ORDERED: Insulin Regular 300 UNITS/3 ML VIAL ONE (11:10)
[2018-03-22 12:19] LABS: Bilirubin Negative (Negative); Blood, Urine Negative (Negative); Clarity CLEAR (Clear); Glucose, Urine (Dipstick) >=1000 mg/dL (Negative); Leukocyte Negative (Negative); Nitrite Negative (Negative); Protein, Urine (Dipstick) Negative (Neg-Trace); Specific Gravity, Urine 1.041 (1.002-1.036); Urobilinogen 0.2 mg/dL (0.2-1.0); pH, Urine 5.5 (5.0-9.0)
[2018-03-22] MEDS ORDERED: Ondansetron ODT 4 MG TAB SL PRN (12:31)
[2018-03-22] MEDS ORDERED: Ondansetron HCl/PF 4 MG/2 ML Vial IVP PRN ×2 (12:31→15:25)
[2018-03-22] MEDS ORDERED: Acetaminophen 325 MG TAB PO PRN (12:31)
[2018-03-22 12:43] VITALS: BMI 19.8
[2018-03-22] MEDS ORDERED: Sodium Chloride 0.9% 1,000 ML IV SCH (13:30)
[2018-03-22] MEDS: Ketorolac Tromethamine 30 MG/ML VIAL IVP SCH ×2 (14:03→20:06)
[2018-03-22] MEDS: diphenhydrAMINE 50 MG/ML VIAL IVP SCH ×2 (14:04→20:06)
[2018-03-22] MEDS ORDERED: Acetaminophen 500 MG TAB PO PRN (15:25)
[2018-03-22] MEDS ORDERED: Metoclopramide HCl 10 MG/2 ML VIAL IVP PRN (15:25)
[2018-03-22] MEDS ORDERED: Dextrose 5% in Water 1,000 ML IV PRN (15:25)
[2018-03-22] MEDS ORDERED: HumaLOG 300 UNITS/3 ML VIAL SC PRN ×2 (15:25)
[2018-03-22] MEDS ORDERED: Dextrose 50% Abboject 50 ML SYRINGE SLOW IVP PRN (15:25)
[2018-03-22] MEDS: Morphine 4 MG/ML VIAL SLOW IVP PRN ×2 (15:55→20:08)
[2018-03-22] MEDS: Sodium Chloride 0.9% 1,000 ML IV SCH ×2 (15:57→21:54)
--- NOTE | 2018-03-22 16:40 | HP ---
DATE OF ADMISSION: 03/22/2018 PRIMARY CARE PROVIDER: Dean Vazquez M.D. PRIMARY CARE SPECIALIST: Yandy Mulligan M.D. CHIEF COMPLAINT: Nausea, vomiting, abdominal pain. 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 The patient has been admitted to [facility] in the recent past approx imately 4 times in 2018 with diabetic ketoacidosis and hyperglycemia. The patient had been recently admitted in 12/2017 with similar exacerbation after adjustments to her chronic insulin regimen. The patient states she was previously treated with insulin pump; however, this was discontinued by her [facility] hydrogenation operator at which point she was transitioned to glargine 50 units subcutaneously q.12 ho urs. The patient states over the last 2 months, she has noted marked improvement in her glucose cont rol as well as ability to gain some weight, which she had previously lost in the early part of 2018. The patient denied any diarrhea and states her last bowel movement was in the last 24 hours. The pa tient denies any dysuria, cough, fever, travel history or sick contacts. The patient admits to decre ased oral intake and appetite with the nausea and abdominal pain. The patient presented after approx imately 3 days of symptoms. The patient admitted her pain in her abdomen with 7/10 in the emergency room at which point the patient was treated with multiple medications to include a GI cocktail, Benty l, Reglan, Benadryl, and 2 liters of intravenous normal saline. The patient also received Novolin R 10 units subcutaneously x1 dose with overall decrease in the glucose to the 300 range. The patient w as transferred to the medical floor for further evaluation. PAST MEDICAL HISTORY: 1. Diabetes mellitus type 1, insulin requiring. 2. Recurrent hospitalizations for abdominal pain, nausea, vomiting, and diabetic ketoacidosis. 3. Secondary pancreatic insufficiency status post pancreatectomy with failed islet cell transplant. 4. Anxiety. PAST SURGICAL HISTORY: 1. Status post pancreatectomy. 2. Status post insulin pump implantation with subsequent removal. 3. Status post cholecystectomy. 4. Status post appendectomy. 5. Status post splenectomy. 6. 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 7. Status post islet cell transplantation. CURRENT MEDICATIONS: Glargine insulin 50 units subcutaneously b.i.d. ALLERGIES: KEFLEX, CODEINE, IODINE, PROPOFOL, and VANCOMYCIN. FAMILY HISTORY: No inheritable diseases per patient report. SOCIAL HISTORY: Resides in [place], [place]. Currently, unemployed. No alcohol, tobacco or i llicit drug use. Has no children. REVIEW OF SYSTEMS: The following complete review of systems was negative, unless otherwise mentioned in the HPI or below: Constitutional: Weight loss or gain, ability to conduct usual activities. Sk in: Rash, itching. Eyes: Double vision, pain. ENT/Mouth: Nose bleeding, neck stiffness, pain, te nderness. Cardiovascular: Palpitations, dyspnea on exertion, orthopnea. Respiratory: Shortness of breath, wheezing, cough, hemoptysis, fever or night sweats. Gastrointestinal: Poor appetite, abdom inal pain, heartburn, nausea, vomiting, constipation, or diarrhea. Genitourinary: Urgency, frequenc y, dysuria, nocturia. Musculoskeletal: Pain, swelling. Neurologic/Psychiatric: Anxiety, depressio n. Allergy/Immunologic: Skin rash, bleeding tendency. Otherwise, negative except as stated per HPI. PHYSICAL EXAMINATION: VITAL SIGNS: Currently, blood pressure 104/67, pulse 75, respiratory rate 16, temperature 98.3 degre es Fahrenheit, O2 saturation 97% on room air. GENERAL APPEARANCE: This is a 37-year-old female, alert and oriented x3, pleasant, in no a cute distress. HEENT: Pupils are equal, round, and reactive to light and accommodation. Extraocular muscles are in tact. No scleral icterus, no conjunctival injection. Nares patent. OP is clear. Teeth in fair rep air. NECK: Supple, no cervical adenopathy, no thyromegaly, no carotid bruits, no JVD appreciated. Cervic al spine with full active and passive range of motion. No meningeal signs appreciated. CHEST: Lungs are clear to auscultation bilaterally. CARDIOVASCULAR: S1, S2, without noted murmur, rub or gallop. ABDOMEN: Flat, soft with mild tenderness to palpation in the midepigastric region. Midline ventral abdominal scar consistent with prior surgical history. No rebound or guarding noted. Bowel sounds a re diminished in all four quadrants. No palpable mass. EXTREMITIES: Warm and dry with fair turgor. No clubbing, cyanosis or asymmetric edema appreciated. Pulses palpable distally at the dorsalis pedis, posterior tibial, and popliteal arteries bilaterally . Capillary refill less than 2 seconds. NEUROLOGIC: Cranial nerves II-XII are grossly intact. No focal or lateralizing signs appreciated. PERTINENT LABORATORY AND X-RAY FINDINGS: Sodium 129, potassium 3.9, chloride 92, CO2 of 25, BUN 12, creatinine 1.06 with estimated GFR of 58, glucose 681 with subsequent value of 382. Calcium 9.3, AST 49, ALT of 60, alkaline phosphatase 108. Troponin I negative x1. Albumin 4.5. Serum beta hCG nega tive. CBC within normal limits. Urinalysis showed specific gravity 1.041. Greater than 1000 glucos e, positive ketones. Beta hydroxybutyrate level 1.95. ASSESSMENT AND PLAN: 1. Hyperglycemia. The patient will be admitted to the medical floor. No current evidence to sugges t definitive diabetic ketoacidosis. We will continue aggressive IV fluid hydration with normal salin e at 125 mL per hour. Aggressive insulin sliding scale for reflexive coverage. Continue glargine in sulin 50 units subcutaneously b.i.d. Repeat BMP in the a.m. Accu-Cheks a.c. and at bedtime. 2. Nausea and vomiting secondary to #1. We will continue antiemetics with Reglan 10 mg IV q.4-6 ania rs p.r.n. Continue Zofran 4 mg IV q.6. p.r.n. Clear liquids as tolerated, advance to a regular ADA . 3. Midepigastric abdominal pain. Suspect secondary to gastroparesis and #1. Continue supportive me asures. Morphine sulfate 2 mg IV q.4 hours p.r.n., Pepcid 20 mg p.o. b.i.d. 4. Hyponatremia, chronic. Suspect pseudohyponatremia given hyperglycemia. We will continue intrave nous normal saline at 125 mL per hour and repeat sodium level in the a.m. 5. Diabetes mellitus type 1, labile. See #1 above. We will continue home insulin regimen to ascert ain current glycemic control with glargine. 6. Prophylaxis. Sequential compression devices while in bed. Pepcid 20 mg p.o. b.i.d. 7. CODE STATUS is FULL. Surrogate medical decision maker is Rocío Clarke.
[2018-03-22] MEDS: Famotidine 20 MG TAB PO SCH (20:11)
[2018-03-22] MEDS: BASAGLAR U SC SCH (20:12)
[2018-03-22] MEDS: Ondansetron ODT 4 MG TAB PO PRN (20:58)
[2018-03-22] MEDS ORDERED: Promethazine HCl 25 MG in Sodium Chloride 0.9% 50 ML IVPB SCH (21:45)
[2018-03-23] MEDS: Ketorolac Tromethamine 30 MG/ML VIAL IVP SCH ×4 (02:05→20:08)
[2018-03-23] MEDS: diphenhydrAMINE 50 MG/ML VIAL IVP SCH ×4 (02:12→20:09)
[2018-03-23] MEDS: Morphine 4 MG/ML VIAL SLOW IVP PRN ×6 (02:14→22:39)
[2018-03-23 05:06] LABS: Eosinophils 3 % (0-10); Hemoglobin 10.2 g/dL (12.0-16.0); Lymphocytes 32 % (21-51); MDiff Complete? YES; Mean Corpuscular HGB CONC 30.8 g/dL (32.0-36.0); Mean Corpuscular Hemoglobin 25.6 pg (27.0-31.0); Mean Corpuscular Volume 83.2 fl (81.0-99.0); Monocytes 2 % (0-10); Neutrophil 63 % (42-75); Platelet Count 290 thou/uL (130-400); RBC Distribution Width 15.9 % (11.5-14.5); Red Blood Cell (RBC) Count 3.99 mill/uL (4.20-5.40); White Blood Cell (WBC) Count 12.5 thou/uL (4.8-10.8)
[2018-03-23] MEDS: Ondansetron ODT 4 MG TAB PO PRN (05:14)
[2018-03-23 06:54] LABS: ALT (SGPT) 40 U/L (8-55); AST (SGOT) 43 U/L (5-34); Albumin 3.2 g/dL (3.5-5.0); Alkaline Phosphatase 64 U/L (40-150); Anion Gap 9 mmol/L (10-20); BUN (Urea Nitrogen) 5 mg/dL (7.0-18.7); Bilirubin, Total 0.2 mg/dL (0.2-1.2); Calc. Creatinine Clearance 111 mL/min (70-130); Carbon Dioxide 23 mmol/L (22-29); Chloride 110 mmol/L (98-107); Estimated GFR-MDRD Greater than 90; Globulin 2.3 g/dL (2.4-3.5); Glucose 60 mg/dL (70-105); Potassium 3.4 mmol/L (3.5-5.1); Protein, Total 5.5 g/dL (6.0-8.3); Sodium 139 mmol/L (136-145)
[2018-03-23] MEDS: Sodium Chloride 0.9% 1,000 ML IV SCH ×3 (07:12→22:43)
[2018-03-23] MEDS: BASAGLAR U SC SCH ×2 (08:04→20:10)
[2018-03-23] MEDS: Famotidine 20 MG TAB PO SCH ×2 (08:05→20:08)
--- NOTE | 2018-03-23 17:17 | PDOC.PN ---
- Subjective Encounter Start Date: 03/23/18 Encounter Start Time: 17:10 Subjective: f/u for hyperglycemia with abd pain and nausea. Still with abd pain , ate -: little of meals today. Drank some juice and H2O. Glucose in 60-130's. - Objective Resuscitation Status: Resuscitation Status FULL:Full Resuscitation MAR Reviewed: Yes Vital Signs & Weight: Vital Signs (12 hours) Temp Pulse Resp BP Pulse Ox 03/23/18 16:14 98.7 F 66 16 111/75 94 L 03/23/18 11:49 98.7 F 65 16 105/70 96 03/23/18 08:00 98.2 F 68 16 97 03/23/18 07:34 98.2 F 68 16 116/77 97 I&O: 03/22/18 03/23/18 03/24/18 06:59 06:59 06:59 Intake Total 240 Balance 240 Result Diagrams: 03/23/18 04:13 03/23/18 05:32 Additional Labs: Accuchecks 03/23/18 03/23/18 03/23/18 16:19 14:20 11:50 POC Glucose 163 H 66 L 71 03/23/18 03/23/18 03/23/18 09:19 06:31 04:51 POC Glucose 105 58 L* 62 L 03/23/18 03/23/18 03/22/18 02:10 00:37 19:58 POC Glucose 83 60 L 104 Laboratory Tests 12/24/17 12/25/17 03/22/18 20:57 04:35 08:40 WBC 9.9 Potassium Hemoglobin A1c 11.1 H B-Hydroxybutyrate 1.76 H 03/22/18 08:40 WBC Potassium 3.9 Hemoglobin A1c B-Hydroxybutyrate Phys Exam - Physical Examination tired appearing, responsive HEENT: PERRLA, moist MMs, sclera anicteric, oral pharynx no lesions Neck: no nodes, no JVD, supple Respiratory: no wheezing, no rales, no rhonchi, clear to auscultation bilateral S1, S2 Cardiovascular: RRR, no significant murmur, no rub, gallop mild TTP diffusely Gastrointestinal: soft, no distention, positive bowel sounds Musculoskeletal: no edema, pulses present Neurological: non-focal, normal sensation, moves all 4 limbs Psychiatric: normal affect, A&O x 3 Skin: no rash, normal turgor, cap refill <2 seconds Dx/Plan (1) Hyperglycemia due to type 1 diabetes mellitus Code(s): E10.65 - TYPE 1 DIABETES MELLITUS WITH HYPERGLYCEMIA Status: Acute Comment: Improved with IVF's and supportive mgmt, serial accuchecks (2) Hypokalemia Code(s): E87.6 - HYPOKALEMIA Status: Acute Comment: KCL 40meq BID, repeat K + level in am (3) Abdominal pain Code(s): R10.9 - UNSPECIFIED ABDOMINAL PAIN Status: Chronic Qualifiers: Abdominal location: generalized Qualified Code(s): R10.84 - Generalized abdominal pain Comment: Due gastroparesis, supportive, Reglan, advance diet as tolerated (4) Gastroparesis Code(s): K31.84 - GASTROPARESIS Status: Acute Comment: Supportive measures, Reglan, Zofran, IVF's (5) Nausea & vomiting Code(s): R11.2 - NAUSEA WITH VOMITING, UNSPECIFIED Status: Acute Qualifiers: Vomiting type: unspecified Vomiting Intractability: non-intractable Qualified Code(s): R11.2 - Nausea with vomiting, unspecified Comment: Improved, antiemetics prn - Plan plan discussed w/ family, out of bed/ambulate, DVT proph w/SCDs Stable overall -: Continue IVF's -: KCL 40meq BID -: Continue Zofran and Reglan -: AM lab: BMP, CBC * Likely home in am
[2018-03-23] MEDS ORDERED: Potassium Chloride 20 MEQ TAB PO SCH (18:00)
[2018-03-24] MEDS: diphenhydrAMINE 50 MG/ML VIAL IVP SCH ×2 (02:31→08:19)
[2018-03-24] MEDS: Ketorolac Tromethamine 30 MG/ML VIAL IVP SCH ×2 (02:32→08:18)
[2018-03-24] MEDS: Morphine 4 MG/ML VIAL SLOW IVP PRN ×6 (02:34→23:54)
[2018-03-24 05:15] LABS: Band 5 % (5-11); Hemoglobin 11.4 g/dL (12.0-16.0); Lymphocytes 56 % (21-51); MDiff Complete? YES; Mean Corpuscular HGB CONC 31.8 g/dL (32.0-36.0); Mean Corpuscular Hemoglobin 26.9 pg (27.0-31.0); Mean Corpuscular Volume 84.5 fl (81.0-99.0); Mean Platelet Volume 9.5 fL (7.4-10.4); Monocytes 4 % (0-10); Neutrophil 35 % (42-75); Platelet Count 302 thou/uL (130-400); RBC Distribution Width 16.4 % (11.5-14.5); Red Blood Cell (RBC) Count 4.25 mill/uL (4.20-5.40); White Blood Cell (WBC) Count 8.1 thou/uL (4.8-10.8)
[2018-03-24 05:17] LABS: Anion Gap 12 mmol/L (10-20); BUN (Urea Nitrogen) Less than 4 mg/dL (7.0-18.7); Calc. Creatinine Clearance 105 mL/min (70-130); Calcium 8.1 mg/dL (7.8-10.44); Carbon Dioxide 23 mmol/L (22-29); Chloride 108 mmol/L (98-107); Estimated GFR-MDRD Greater than 90; Glucose 72 mg/dL (70-105); Potassium 3.6 mmol/L (3.5-5.1); Sodium 139 mmol/L (136-145)
[2018-03-24] MEDS: Sodium Chloride 0.9% 1,000 ML IV SCH ×3 (08:15→23:55)
[2018-03-24] MEDS: Potassium Chloride 20 MEQ TAB PO SCH ×2 (08:16→15:44)
[2018-03-24] MEDS: Famotidine 20 MG TAB PO SCH ×2 (08:16→19:52)
[2018-03-24] MEDS: BASAGLAR U SC SCH ×2 (08:23→22:02)
[2018-03-24] MEDS ORDERED: diphenhydrAMINE 25 MG CAP PO PRN (09:46)
[2018-03-24] MEDS ORDERED: Ketorolac Tromethamine 30 MG/ML VIAL IVP PRN (09:46)
[2018-03-24] MEDS: diphenhydrAMINE 50 MG/ML VIAL IVP PRN ×2 (15:43→22:01)
--- NOTE | 2018-03-24 22:36 | PDOC.PN ---
- Subjective Encounter Start Date: 03/24/18 Encounter Start Time: 17:00 Patient seen and examined for DKA/N/V. Intermittent N/V. Poor appetite. No overnight events - Objective Resuscitation Status: Resuscitation Status FULL:Full Resuscitation MAR Reviewed: Yes Vital Signs & Weight: Vital Signs (12 hours) Temp Pulse Resp BP Pulse Ox 03/24/18 20:04 98.4 F 67 18 116/72 97 03/24/18 20:00 98.4 F 67 18 I&O: 03/23/18 03/24/18 03/25/18 06:59 06:59 06:59 Intake Total 240 5810 Output Total 4600 Balance 240 1210 Result Diagrams: 03/24/18 03:45 03/25/18 03:55 Additional Labs: Accuchecks 03/24/18 03/24/18 03/24/18 20:04 16:14 11:15 POC Glucose 182 H 202 H 124 H 03/24/18 03/24/18 03/24/18 06:00 04:13 03:23 POC Glucose 179 H 179 H 59 L* Phys Exam - Physical Examination Constitutional: NAD Respiratory: no wheezing, no rhonchi Cardiovascular: RRR, no rub Gastrointestinal: soft, positive bowel sounds mild gen tenderness, no rebound Musculoskeletal: no edema Neurological: moves all 4 limbs Dx/Plan (1) DKA (diabetic ketoacidoses) Code(s): E13.10 - OTH DIABETES MELLITUS WITH KETOACIDOSIS WITHOUT COMA Status : Acute Qualifiers: Qualified Code(s): E10.10 - Type 1 diabetes mellitus with ketoacidosis without coma (2) Nausea & vomiting Code(s): R11.2 - NAUSEA WITH VOMITING, UNSPECIFIED Status: Acute Qualifiers: Vomiting type: unspecified Comment: Prob due gastroparesis/DKA (3) Hypokalemia Code(s): E87.6 - HYPOKALEMIA Status: Acute (4) Hyponatremia Code(s): E87.1 - HYPO-OSMOLALITY AND HYPONATREMIA Status: Acute - Plan DVT proph w/SCDs Cont Antiemetics -: Pain control -: Cont IV fluids -: Reduce Lantus to 20 BID -: DC in 24-48 hr if stable Review of Systems - Review of Systems Respiratory: negative: Cough, Dry, Shortness of Breath, Hemoptysis, SOB with Excertion, Pleuritic Pain, Sputum, Wheezing Cardiovascular: negative: chest pain, palpitations, orthopnea, paroxysmal nocturnal dyspnea, edema, light headedness, other - Medications/Allergies Allergies/Adverse Reactions: Allergies Allergy/AdvReac Type Severity Reaction Status Date / Time cephalexin monohydrate Allergy Hives Verified 12/25/17 01:08 [From Keflex] codeine Allergy Hives Verified 12/25/17 01:08 iodine Allergy Verified 12/25/17 01:08 propofol Allergy Hives Verified 12/25/17 01:08 vancomycin Allergy Hives Verified 12/25/17 01:08 Medications: Current Medications Acetaminophen (Tylenol) 1,000 mg PO Q6H PRN PRN Reason: Headache/Fever or Mild Pain Dextrose/Water (Dextrose 50%) 25 gm SLOW IVP PRN PRN PRN Reason: Hypoglycemia Diphenhydramine HCl (Benadryl) 25 mg PO Q6H PRN PRN Reason: Itching & Insomnia Last Admin: 03/24/18 14:14 Dose: 25 mg Diphenhydramine HCl (Benadryl) 25 mg IVP Q6H PRN PRN Reason: Nausea/Vomiting Last Admin: 03/24/18 22:01 Dose: 25 mg Famotidine (Pepcid) 20 mg PO BID [facility] Last Admin: 03/24/18 19:52 Dose: 20 mg Glucagon (Glucagon) 1 mg IM PRN PRN PRN Reason: Hypoglycemia Dextrose/Water (D5w) 1,000 mls @ 0 mls/hr IV .Q0M PRN; As Directed PRN Reason: Hypoglycemia Sodium Chloride (Normal Saline 0.9%) 1,000 mls @ 125 mls/hr IV .Q8H [facility] Last Admin: 03/24/18 15:43 Dose: 1,000 mls Insulin Human Lispro (Humalog) 0 units SC .BEDTIME SLIDING SC PRN PRN Reason: Bedtime Correctional Scale Insulin Human Lispro (Humalog) 0 units SC .MILD SLIDING SCALE PRN PRN Reason: Mild Correctional Scale Ketorolac Tromethamine (Toradol) 15 mg IVP Q6H PRN PRN Reason: Pain Stop: 03/29/18 09:47 Last Admin: 03/24/18 14:14 Dose: 15 mg Metoclopramide HCl (Reglan) 10 mg IVP Q4H PRN PRN Reason: Nausea Morphine Sulfate (Morphine) 2 mg SLOW IVP Q4H PRN PRN Reason: Moderate to Severe Pain (6-10) Last Admin: 03/24/18 19:53 Dose: 2 mg Ondansetron HCl (Zofran Odt) 4 mg PO Q6H PRN PRN Reason: Nausea/Vomiting Last Admin: 03/23/18 05:14 Dose: 4 mg Ondansetron HCl (Zofran) 4 mg IVP Q6H PRN PRN Reason: Nausea/Vomiting Basaglar (Insulin (Glargine) U-100) 0 each SC BID [facility] Last Admin: 03/24/18 22:02 Dose: 1 each Potassium Chloride (K-Dur) 40 meq PO BID-[facility] Last Admin: 03/24/18 15:44 Dose: 40 meq
[2018-03-25] MEDS: Morphine 4 MG/ML VIAL SLOW IVP PRN ×6 (03:59→23:37)
[2018-03-25] MEDS: diphenhydrAMINE 50 MG/ML VIAL IVP PRN ×4 (03:59→21:32)
[2018-03-25 05:05] LABS: Albumin 3.4 g/dL (3.5-5.0); Anion Gap 9 mmol/L (10-20); BUN (Urea Nitrogen) 7 mg/dL (7.0-18.7); Calc. Creatinine Clearance 107 mL/min (70-130); Calcium 8.3 mg/dL (7.8-10.44); Carbon Dioxide 22 mmol/L (22-29); Chloride 107 mmol/L (98-107); Estimated GFR-MDRD Greater than 90; Glucose 82 mg/dL (70-105); Magnesium 1.8 mg/dL (1.6-2.6); Phosphorus 3.3 mg/dL (2.3-4.7); Sodium 134 mmol/L (136-145)
[2018-03-25] MEDS: Potassium Chloride 20 MEQ TAB PO SCH (07:50)
[2018-03-25] MEDS: Famotidine 20 MG TAB PO SCH ×2 (07:50→21:32)
[2018-03-25] MEDS: BASAGLAR U SC SCH ×2 (07:51→21:44)
[2018-03-25] MEDS: Sodium Chloride 0.9% 1,000 ML IV SCH ×5 (07:51→17:54)
[2018-03-25] MEDS ORDERED: Potassium Chloride 20 MEQ TAB PO SCH (17:00)
[2018-03-25] MEDS: HumaLOG 300 UNITS/3 ML VIAL SC PRN (17:52)
[2018-03-25] MEDS ORDERED: BASAGLAR U SC SCH (21:00)
--- NOTE | 2018-03-25 23:24 | PDOC.PN ---
- Subjective Encounter Start Date: 03/25/18 Encounter Start Time: 14:30 Patient seen and examined for DKA/Abd pain/N. Still nauseas. No new complaints. No overnight events - Objective Resuscitation Status: Resuscitation Status FULL:Full Resuscitation MAR Reviewed: Yes Vital Signs & Weight: Vital Signs (12 hours) Temp Pulse Resp BP Pulse Ox 03/25/18 20:00 98.7 F 62 20 118/80 98 I&O: 03/24/18 03/25/18 03/26/18 06:59 06:59 06:59 Intake Total 5810 8355 Output Total 4600 600 Balance 1210 7755 Result Diagrams: 03/24/18 03:45 03/25/18 03:55 Additional Labs: Accuchecks 03/25/18 03/25/18 03/25/18 20:32 16:37 11:26 POC Glucose 242 H 212 H 101 03/25/18 05:28 POC Glucose 62 L Dx/Plan (1) DKA (diabetic ketoacidoses) Code(s): E13.10 - OTH DIABETES MELLITUS WITH KETOACIDOSIS WITHOUT COMA Status : Acute Qualifiers: (2) Nausea & vomiting Code(s): R11.2 - NAUSEA WITH VOMITING, UNSPECIFIED Status: Acute Qualifiers: Vomiting type: unspecified Comment: With abd pain - Prob due gastroparesis/DKA (3) Hypokalemia Code(s): E87.6 - HYPOKALEMIA Status: Acute (4) Hyponatremia Code(s): E87.1 - HYPO-OSMOLALITY AND HYPONATREMIA Status: Acute - Plan DVT proph w/SCDs Hypoglycemic this morning, Change Lantus to 10 units HS -: Cont sliding scale -: Still has poor appetite with N and abd pain -: Cont IV fluids/Pain control -: DC in AM if stable * . Review of Systems - Medications/Allergies Allergies/Adverse Reactions: Allergies Allergy/AdvReac Type Severity Reaction Status Date / Time cephalexin monohydrate Allergy Hives Verified 12/25/17 01:08 [From Keflex] codeine Allergy Hives Verified 12/25/17 01:08 iodine Allergy Verified 12/25/17 01:08 propofol Allergy Hives Verified 12/25/17 01:08 vancomycin Allergy Hives Verified 12/25/17 01:08 Medications: Current Medications Acetaminophen (Tylenol) 1,000 mg PO Q6H PRN PRN Reason: Headache/Fever or Mild Pain Dextrose/Water (Dextrose 50%) 25 gm SLOW IVP PRN PRN PRN Reason: Hypoglycemia Diphenhydramine HCl (Benadryl) 25 mg PO Q6H PRN PRN Reason: Itching & Insomnia Last Admin: 03/24/18 14:14 Dose: 25 mg Diphenhydramine HCl (Benadryl) 25 mg IVP Q6H PRN PRN Reason: Nausea/Vomiting Last Admin: 03/25/18 21:32 Dose: 25 mg Famotidine (Pepcid) 20 mg PO BID [facility] Last Admin: 03/25/18 21:32 Dose: 20 mg Glucagon (Glucagon) 1 mg IM PRN PRN PRN Reason: Hypoglycemia Dextrose/Water (D5w) 1,000 mls @ 0 mls/hr IV .Q0M PRN; As Directed PRN Reason: Hypoglycemia Sodium Chloride (Normal Saline 0.9%) 1,000 mls @ 75 mls/hr IV .[id number] [facility] Last Admin: 03/25/18 17:54 Dose: 1,000 mls Insulin Human Lispro (Humalog) 0 units SC .BEDTIME SLIDING SC PRN PRN Reason: Bedtime Correctional Scale Insulin Human Lispro (Humalog) 0 units SC .MILD SLIDING SCALE PRN PRN Reason: Mild Correctional Scale Last Admin: 03/25/18 17:52 Dose: 3 unit Ketorolac Tromethamine (Toradol) 15 mg IVP Q6H PRN PRN Reason: Pain Stop: 03/29/18 09:47 Last Admin: 03/24/18 14:14 Dose: 15 mg Metoclopramide HCl (Reglan) 10 mg IVP Q4H PRN PRN Reason: Nausea Morphine Sulfate (Morphine) 2 mg SLOW IVP Q4H PRN PRN Reason: Moderate to Severe Pain (6-10) Last Admin: 03/25/18 19:50 Dose: 2 mg Ondansetron HCl (Zofran Odt) 4 mg PO Q6H PRN PRN Reason: Nausea/Vomiting Last Admin: 03/23/18 05:14 Dose: 4 mg Ondansetron HCl (Zofran) 4 mg IVP Q6H PRN PRN Reason: Nausea/Vomiting Basaglar (Insulin (Glargine) U-100) 0 each SC BID [facility] Last Admin: 03/25/18 21:44 Dose: 1 each Potassium Chloride (K-Dur) 20 meq PO BID-[facility] Stop: 03/25/18 23:59 Last Admin: 03/25/18 15:46 Dose: 20 meq
[2018-03-26] MEDS: Morphine 4 MG/ML VIAL SLOW IVP PRN ×2 (03:44→08:04)
[2018-03-26] MEDS: diphenhydrAMINE 50 MG/ML VIAL IVP PRN ×2 (03:44→09:34)
[2018-03-26] MEDS: HumaLOG 300 UNITS/3 ML VIAL SC PRN (05:40)
[2018-03-26 07:07] VITALS: BP 142/93; TEMP 97.6
[2018-03-26] MEDS: Famotidine 20 MG TAB PO SCH (08:04)
[2018-03-26] MEDS: Sodium Chloride 0.9% 1,000 ML IV SCH (08:06)
[2018-03-26] MEDS: BASAGLAR U SC SCH (08:07)
[2018-03-26] MEDS ORDERED: Morphine 4 MG/ML VIAL SLOW IVP PRN (10:18)
[2018-03-26] MEDS ORDERED: Ibuprofen 200 MG TAB PO PRN (10:31)
[2018-03-26] MEDS ORDERED: Ondansetron ODT 4 MG TAB PO PRN (10:31)
[2018-03-26] MEDS ORDERED: Promethazine 25 MG TAB PO PRN (10:31)
[2018-03-26] MEDS ORDERED: BASAGLAR U SC SCH (21:00)
--- NOTE | 2018-03-27 09:09 | DIS ---
DATE OF DISCHARGE: 03/26/2018 DISCHARGE DISPOSITION: Home. FOLLOWUP: 1. Follow up with primary care physician, Dr. Vazquez in 1 week. 2. Follow up with primary soc analyst, Dr. Mulligan. The patient was seen on the day of discharge, denies any new complaints, no chest pain, shortness of breath or palpitations. BRIEF HOSPITAL COURSE: Patient is a 37-year-old white female with diabetes mellitus type 1, presente d to the hospital with nausea, vomiting, and abdominal discomfort. Please refer to the history and p hysical for further details. The patient was admitted to the hospital with a diagnosis of diabetic ketoacidosis. Ketones on admis carrington was 1.95. Her blood sugar on admission was 681. She was monitored on the medical floor with in sulin sliding scale. Long-acting insulin was gradually started. She had episodes of hypoglycemia du e to poor appetite. On the day of discharge, her blood sugars are stable. She was advised to start Lantus at 10 units at bedtime and gradually titrate. She was advised to follow up with her primary e ndocrinologist as outpatient. Her nausea and vomiting has significantly improved. Plan of care was discussed with the patient in detail. She stated understanding. FINAL DIAGNOSES: 1. Diabetic ketoacidosis. 2. Nausea, vomiting, abdominal discomfort secondary to diabetic ketoacidosis. Questionable diabetic gastroparesis. 3. Hypokalemia, replaced. 4. Hyponatremia, replaced. 5. Anxiety. Plan of care was discussed with the patient in detail. She stated understanding.
== END 2018-03-26 12:30 | disposition home or self-care (01) | DRG 638 ==
LOC: ERS 08:03 → EEVIPCON 11:12 → T4-A 11:12
PROVIDERS: ADMIT Family Medicine; ATTEND Family Medicine
DX: E10.10 Type 1 diabetes mellitus with ketoacidosis without coma (principal); E87.1 Hypo-osmolality and hyponatremia; E87.6 Hypokalemia; E10.649 Type 1 diabetes mellitus with hypoglycemia without coma; E10.43 Type 1 diabetes mellitus with diabetic autonomic (poly)neuropathy; K31.84 Gastroparesis; Z79.4 Long term (current) use of insulin; Z90.411 Acquired partial absence of pancreas; F41.9 Anxiety disorder, unspecified; Z90.49 Acquired absence of other specified parts of digestive tract; Z90.81 Acquired absence of spleen
CPT/HCPCS: 36415; 36416; 80048; 80053; 80069; 81003; 82010; 82553; 83735; 84484; 84703; 85007; 85025; 85027; 96361; 96372; 96374; 96375; C9113; J1200; J1815; J1885; J2270; J2550; J2765; J7050; Q0162

== ENCOUNTER 2018-05-13 22:47 | Emergency (ER) | payer BC, SELFPAY ==
[~2018-05-13 22:47] MED LIST changes: +Iopamidol 370 76% 50 ML VIAL FS ONE
[2018-05-13 23:54] LABS: Base Excess-Venous -7.1 mmol/L (0 (+/- 2.5)); Bicarbonate (HCO3v) 17.4 mmol/L (1.0-85.0); CO2 Tension (PvCO2) 31.4 mmHg (41.0-51.0); Calcium, Ionized 1.15 mmol/L (1.12-1.32); Hemoglobin - Calc 13.2 g/dL (12.0-18.0); T. Carbon Dioxide 18.3 mmol/L (1.0-85.0); pH (Venous) 7.352 (7.35-7.45); vO2 Saturation-calc 93.3 % (94-98)
[2018-05-14 00:03] LABS: ALT (SGPT) 45 U/L (8-55); AST (SGOT) 43 U/L (5-34); Albumin 3.8 g/dL (3.5-5.0); Alkaline Phosphatase 63 U/L (40-150); Anion Gap 14 mmol/L (10-20); BUN (Urea Nitrogen) 8 mg/dL (7.0-18.7); Bilirubin, Total 0.2 mg/dL (0.2-1.2); Calc. Creatinine Clearance 0 mL/min (70-130); Calcium 8.5 mg/dL (7.8-10.44); Carbon Dioxide 18 mmol/L (22-29); Chloride 104 mmol/L (98-107); Estimated GFR-MDRD 71; Globulin 2.4 g/dL (2.4-3.5); Glucose 519 mg/dL (70-105); Lipase 9 U/L (8-78); Magnesium 1.9 mg/dL (1.6-2.6); Phosphorus 4.2 mg/dL (2.3-4.7); Protein, Total 6.2 g/dL (6.0-8.3); Sodium 132 mmol/L (136-145)
[2018-05-14 00:07] LABS: CKMB 0.9 ng/mL (0-6.6); Troponin I Less than 0.010 ng/mL (< 0.028)
[2018-05-14] MEDS ORDERED: Famotidine 20 MG TAB ONE (00:36)
[2018-05-14] MEDS ORDERED: Insulin Regular 300 UNITS/3 ML VIAL ONE (00:36)
[2018-05-14] MEDS ORDERED: methylPREDNISolone Sod Succ/PF 125 MG/2 ML VIAL ONE (00:36)
[2018-05-14] MEDS ORDERED: diphenhydrAMINE 50 MG/ML VIAL ONE ×2 (00:36→02:09)
[2018-05-14] MEDS ORDERED: Ondansetron ODT 8 MG TAB ONE (00:36)
[2018-05-14 01:36] LABS: Band 4 % (5-11); Eosinophils 3 % (0-10); Hemoglobin 10.7 g/dL (12.0-16.0); Lymphocytes 45 % (21-51); MDiff Complete? YES; Mean Corpuscular HGB CONC 32.3 g/dL (32.0-36.0); Mean Corpuscular Hemoglobin 28.1 pg (27.0-31.0); Mean Corpuscular Volume 86.9 fL (78.0-98.0); Mean Platelet Volume 8.4 fL (7.4-10.4); Monocytes 8 % (0-10); Neutrophil 40 % (42-75); PLT Morphology Comment Appears Adequate; Platelet Count 362 thou/uL (130-400); RBC Distribution Width 14.8 % (11.5-14.5); White Blood Cell (WBC) Count 7.8 thou/uL (4.8-10.8)
[2018-05-14] MEDS ORDERED: Promethazine HCl 25 MG/ML VIAL ONE (01:43)
--- NOTE | 2018-05-14 08:56 | CT ---
PRELIMINARY REPORT/[facility]/EMERGENTY AFTER-HOURS PROCEDURE CT Abdomen and Pelvis With Intravenous Contrast CLINICAL HISTORY: 37 years old, female; Pain and signs and symptoms; Nausea; Abdominal pain; Prior surgery; Patient HX: 9; 37 yo f presents to ed with possible dka. PT reports she is a really diabetic and is insulin depe ndent. PT reports recent unusual dramatic fluctuations in blood sugar. PT started puking today and has had bad diarrhea since last surgery. PT reports she feels like she has had a fever and is "co nstantly peeing a lot". PT reports she hasn't been hungry and hasn't eaten today. PT reports she feel s a little bloated. PT reports no recent changes to insulin intake. PT reports she has had her pancreas, appendix, spleen, and gallbladder removed. PT denies cough or congestion. TECHNIQUE: Axial computed tomography images of the abdomen and pelvis with intravenous contrast. Coronal reforma tted images were created and reviewed. COMPARISON: No relevant prior studies available. FINDINGS: Lower thorax: No acute findings. ABDOMEN: Liver: Probable hepatic-enteric surgical anastomosis based on configuration of the organs. Gallbladder and bile ducts: Prior cholecystectomy. No biliary ductal dilatation. Pneumobilia. Pancreas: Pancreas not visualized. 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 Adrenals: Normal. No mass. Kidneys and ureters: Bilateral renal cysts. Stomach and bowel: Colon is moderately and diffusely distended with stool, probably representing cons tipation, much of which is markedly decreased in attenuation, raising the possibility of steatorrhea/ malabsorption. No bowel wall thickening or intestinal obstruction. Appendix: Prior appendectomy. PELVIS: Bladder: Urinary bladder is markedly distended but otherwise unremarkable. Reproductive: Tampon in place in the vagina. Uterus and ovaries are unremarkable. ABDOMEN and PELVIS: Intraperitoneal space: Normal. No free air. No significant fluid collection. Bones/joints: No acute fracture. No dislocation. Soft tissues: Unremarkable. Vasculature: Normal. No abdominal aortic aneurysm. Lymph nodes: Normal. No enlarged lymph nodes. IMPRESSION: 1. Colon is moderately and diffusely distended with stool, probably representing constipation, much o f which is markedly decreased in attenuation, raising the possibility of steatorrhea/malabsorption. 2. Findings suggest prior Whipple type procedure given that the pancreas is nonvisualized and there a ppears to be hepatic-enteric surgical anastomosis with resulting pneumobilia. Thank you for allowing us to participate in the care of your patient. Dictated and Authenticated by: Omkar Puente MD 05/14/2018 4:06 AM Central Time ([place] & [place]) FINAL REPORT CT ABDOMEN AND PELVIS WITH ORAL AND IV COTNRAST: I agree with the preliminary report given by Dr. Omkar Puente of [facility]. POS: [facility]
== END 2018-05-14 05:38 | disposition home or self-care (01) ==
LOC: ERS 22:47
DX: E10.65 Type 1 diabetes mellitus with hyperglycemia (principal); K59.00 Constipation, unspecified; F41.9 Anxiety disorder, unspecified; F32.9 Major depressive disorder, single episode, unspecified; Z79.899 Other long term (current) drug therapy
CPT/HCPCS: 36415; 36416; 74177; 80053; 82010; 82330; 82553; 82803; 83690; 83735; 84100; 84484; 85025; 96361; 96365; 96372; 96375; 96376; J1200; J1815; J2270; J2550; J2930

== ENCOUNTER 2018-06-25 05:46 | Inpatient (IN) | payer SELFPAY, OTHER ==
[2018-06-25 06:51] LABS: #Basophils 0.1 thou/uL (0.0-0.2); #Lymphocytes 2.7 thou/uL (1.20-3.40); #Monocytes 0.4 thou/uL (0.11-0.59); #Neutrophils 5.4 thou/uL (1.40-6.50); %Basophils 0.8 % (0.0-1.0); %Eosinophils 0.5 % (0.0-10.0); %Lymphocytes 31.1 % (21.0-51.0); %Monocytes 4.4 % (0.0-10.0); %Neutrophils 63.2 % (42.0-75.0); Hemoglobin 12.6 g/dL (12.0-16.0); Mean Corpuscular HGB CONC 32.8 g/dL (32.0-36.0); Mean Corpuscular Hemoglobin 28.9 pg (27.0-31.0); Mean Corpuscular Volume 88.2 fL (78.0-98.0); Mean Platelet Volume 8.6 fL (7.4-10.4); Platelet Count 330 thou/uL (130-400); RBC Distribution Width 13.4 % (11.5-14.5); Red Blood Cell (RBC) Count 4.37 mill/uL (4.20-5.40); White Blood Cell (WBC) Count 8.6 thou/uL (4.8-10.8)
[2018-06-25 06:52] LABS: Base Excess-Venous -1.7 mmol/L (0 (+/- 2.5)); Bicarbonate (HCO3v) 22.5 mmol/L (1.0-85.0); CO2 Tension (PvCO2) 35.8 mmHg (41.0-51.0); Calcium, Ionized 1.02 mmol/L (1.12-1.32); Hemoglobin - Calc 14.2 g/dL (12.0-18.0); O2 Tension (PvO2) 76.2 mmHg (35.0-45.0); Potassium 4.3 mmol/L (3.4-4.7); T. Carbon Dioxide 23.6 mmol/L (1.0-85.0); pH (Venous) 7.407 (7.35-7.45); vO2 Saturation-calc 95.3 % (94-98)
[2018-06-25] MEDS ORDERED: diphenhydrAMINE 50 MG/ML VIAL ONE (06:59)
[2018-06-25 07:06] LABS: ALT (SGPT) 62 U/L (8-55); AST (SGOT) 72 U/L (5-34); Albumin 3.9 g/dL (3.5-5.0); Alkaline Phosphatase 89 U/L (40-150); Anion Gap 17 mmol/L (10-20); BUN (Urea Nitrogen) 9 mg/dL (7.0-18.7); Bilirubin, Total 0.4 mg/dL (0.2-1.2); Calc. Creatinine Clearance 0 mL/min (70-130); Calcium 8.7 mg/dL (7.8-10.44); Carbon Dioxide 21 mmol/L (22-29); Chloride 96 mmol/L (98-107); Estimated GFR-MDRD 55; Globulin 2.7 g/dL (2.4-3.5); Phosphorus 4.6 mg/dL (2.3-4.7); Potassium 4.6 mmol/L (3.5-5.1); Protein, Total 6.6 g/dL (6.0-8.3); Sodium 129 mmol/L (136-145)
[2018-06-25 07:10] LABS: Glucose 799 mg/dL (70-105)
[2018-06-25] MEDS ORDERED: Insulin Regular 300 UNITS/3 ML VIAL ONE (07:49)
[2018-06-25] MEDS ORDERED: Senokot 8.6 MG TAB PO PRN (09:56)
[2018-06-25] MEDS ORDERED: Dextrose 5 %-0.45 % NaCl 1,000 ML IV PRN (09:56)
[2018-06-25] MEDS ORDERED: Sodium Chloride 0.9% 1,000 ML IV PRN ×4 (09:56)
[2018-06-25] MEDS ORDERED: Loperamide HCl 2 MG CAP PO PRN (09:56)
[2018-06-25] MEDS ORDERED: Artificial Tears 18 DROP/0.9 ML EA EYE PRN (09:56)
[2018-06-25] MEDS ORDERED: NS 0.9% w/ 20 MEQ KCL 1,000 ML IV PRN ×2 (09:56)
[2018-06-25] MEDS ORDERED: Eucerin (Mineral Oil/Petrolatum,White) 30 gm Jar TOP PRN (09:56)
[2018-06-25] MEDS ORDERED: Diabetic Tussin 200 MG/10 ML UDCUP PO PRN (09:56)
[2018-06-25] MEDS ORDERED: D5 1/2 NS w/20 mEq KCL 1,000 ML IV PRN (09:56)
[2018-06-25] MEDS ORDERED: Sodium Chloride 0.65% Nasal 44 ML BOT EA NARE PRN (09:56)
[2018-06-25] MEDS ORDERED: Milk Of Magnesia 30 ML UDCUP PO PRN (09:56)
[2018-06-25] MEDS ORDERED: Zolpidem Tartrate 5 MG TAB PO PRN (09:56)
[2018-06-25] MEDS ORDERED: Acetaminophen 325 MG TAB PO PRN (09:56)
[2018-06-25] MEDS ORDERED: Loratadine 10 MG TAB PO PRN (09:56)
[2018-06-25] MEDS ORDERED: CCU Electrolyte Replacement 1 EACH IVPB ONE (09:56)
[2018-06-25] MEDS ORDERED: Mag-Al 1200 mg/1200 mg/30 ML UDCUP PO PRN (09:56)
[2018-06-25] MEDS ORDERED: Chloraseptic Spray 180 ml Bottle PO PRN (09:56)
[2018-06-25] MEDS ORDERED: diphenhydrAMINE 50 MG/ML VIAL IVP PRN (09:57)
[2018-06-25] MEDS ORDERED: Potassium Chloride 40 MEQ in Premix Bag 1 BAG IVPB PRN (10:14)
[2018-06-25] MEDS ORDERED: Potassium Phosphate 12 MMOL in Sodium Chloride 0.9% 250 ML 250 ML IV PRN (10:14)
[2018-06-25] MEDS ORDERED: Magnesium Oxide 400 MG TAB PO PRN ×2 (10:14)
[2018-06-25] MEDS ORDERED: Potassium Chloride 40 MEQ in Sodium Chloride 0.9% 250 ML 250 ML IVPB PRN (10:14)
[2018-06-25] MEDS ORDERED: Magnesium 2 GM/NS 0.9% 100 ML 2 GM in Premix Bag 1 BAG IVPB PRN (10:14)
[2018-06-25] MEDS ORDERED: Potassium Phosphate 15 MMOL in Sodium Chloride 0.9% 250 ML 250 ML IV PRN (10:14)
[2018-06-25] MEDS ORDERED: Potassium Chloride 20 MEQ TAB PO PRN (10:14)
[2018-06-25] MEDS ORDERED: CCU ELECTROLYTE REPLACEMENT PROTOCOL FS PRN (10:14)
[2018-06-25] MEDS ORDERED: Potassium Phosphate 9 MMOL in Sodium Chloride 0.9% 100 ML IVPB PRN (10:14)
[2018-06-25 10:37] LABS: Anion Gap 10 mmol/L (10-20); BUN (Urea Nitrogen) 6 mg/dL (7.0-18.7); Calc. Creatinine Clearance 0 mL/min (70-130); Calcium 8.4 mg/dL (7.8-10.44); Carbon Dioxide 23 mmol/L (22-29); Chloride 105 mmol/L (98-107); Estimated GFR-MDRD 87; Glucose 280 mg/dL (70-105); Potassium 3.4 mmol/L (3.5-5.1); Sodium 135 mmol/L (136-145)
[2018-06-25] MEDS ORDERED: Promethazine 25 MG TAB ONE (10:44)
[2018-06-25] MEDS ORDERED: Promethazine HCl 25 MG/ML VIAL ONE (10:45)
--- NOTE | 2018-06-25 11:32 | HP ---
PRIMARY CARE PHYSICIAN: Dr. Taylor Moran. REASON FOR ADMISSION: Nausea, vomiting, abdominal pain, hyperglycemia with mild diabetic ketoacidosi s. HISTORY OF PRESENT ILLNESS: A 37-year-old female who has underlying history of diabetes type 2, insu maxime-dependent, who presented to emergency room with complaint of nausea, vomiting, abdominal pain for the last 2-3 days. The patient has decreased appetite for last 2-3 days. She was checking her bloo d sugar, which was showing high level. The patient was taking insulin depending upon her oral intake . She was not feeling better. She reports that she was taking her scheduled insulin. She pretty mu ch eats during night time and she mostly takes her insulin during night time. She was feeling headac he. She was having generalized body ache and crampy pain. She denies any diarrhea, hematochezia, he matemesis. Patient was not feeling good. She was feeling that she is getting DKA and that is why anmol bailon decided to come to the emergency room for evaluation. This time, she denies any running out any me dication. She is not sure why her blood sugar was going high. She denies any fever or chills. She denies any UTI symptoms. She denies any focal motor symptoms. She denies any chest pain, cough, upp er respiratory or lower respiratory symptoms. Patient reports that normally whenever she takes her insulin, her blood sugar gets response and she i s also not taking too much insulin as well because she also afraid of getting low blood sugar. REVIEW OF SYSTEMS: The following complete review of systems was negative, unless otherwise mentioned in the HPI or below: Constitutional: Weight loss or gain, ability to conduct usual activities. Skin: Rash, itching. Eyes: Double vision, pain. ENT/Mouth: Nose bleeding, neck stiffness, pain, tenderness. Cardiovascular: Palpitations, dyspnea on exertion, orthopnea. Respiratory: Shortness of breath, wheezing, cough, hemoptysis, fever or night sweats. Gastrointestinal: Poor appetite, abdominal pain, heartburn, nausea, vomiting, constipation, or diarr hea. Genitourinary: Urgency, frequency, dysuria, nocturia. Musculoskeletal: Pain, swelling. Neurologic/Psychiatric: Anxiety, depression. Allergy/Immunologic: Skin rash, bleeding tendency. Please see my HPI for pertinent positive and negative. All other review of system reviewed and negat lavelle except as mentioned in the HPI. 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 PAST PSYCHIATRIC HISTORY: Anxiety and depression. 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 CURRENT HOME MEDICATIONS: Glargine insulin 50 units subcu b.i.d. ALLERGIES: KEFLEX, CODEINE, IODINE, PROPOFOL, VANCOMYCIN. Patient also does not tolerate ZOFRAN and REGLAN per patient. FAMILY HISTORY: No strong family history of premature coronary artery disease, stroke or cancer. SOCIAL HISTORY: The patient lives in [place], [place]. She is working with her . No h istory of alcohol, tobacco or illicit drug abuse. EMERGENCY ROOM COURSE: Patient is given IV fluid, insulin drip, morphine 2 mg, Benadryl 25 mg. PHYSICAL EXAMINATION: VITAL SIGNS: On arrival, blood pressure 140/96, pulse 111, respiratory rate 20, temperature 98.1, sa turation 96% on room air, weight 45.3 kilograms. GENERAL: The patient is currently alert, awake, in no obvious acute distress. HEENT: Head: Normocephalic, atraumatic. Eyes: Pupils round, reactive to light. Extraocular muscl e intact. No nystagmus. ENT: Dry mucous membrane, no oral lesion, no pharyngeal erythema, no exudate. NECK: Supple, no JVD, no thyromegaly, no carotid bruit. LUNGS: Clear to auscultation without any rhonchi or rales. CARDIAC: S1, S2 regular. No murmur, no gallop, no rub. ABDOMEN: Patient does have subjective discomfort, but no guarding, no rigidity, no rebound, no organ omegaly, no mass, no suprapubic tenderness. BACK: Unremarkable, no CVA tenderness. EXTREMITIES: Upper extremity, passive movement of all joints are normal. Lower extremity, no edema. Good peripheral pulsation. SKIN: No skin rash. HEMATOLOGICAL: No lymphadenopathy. PSYCHIATRIC: Normal affect. NEUROLOGIC: Patient is currently alert, oriented x3. Cranial nerves II through XII intact. Motor a nd sensation within normal limits. No focal neurological deficit noted. GENERAL: The patient has thin and short stature. SIGNIFICANT LABORATORY DATA: CBC: WBC 8.6, hemoglobin 12.6, platelets 330. VBG: pH 7.4, CO2 35.8, O2 76.2, bicarbonate 22.5. BMP: Sodium 129, potassium 4.6, chloride 96, carbon dioxide 21, anion g ap 17, BUN 9, creatinine 1.12, glucose 799, calcium 8.7. Phosphorus 4.6, magnesium 2.0, AST 72, ALT 62, albumin 3.9, protein 6.6, alkaline phosphatase 89, glu cose 799. Beta hydroxybutyrate 1.85. ASSESSMENT AND PLAN: 1. Severe hyperglycemia with mild diabetic ketoacidosis. The patient is given insulin drip in the e mergency room, she has received IV fluid. Based on protocol, we have to admit this patient to IM o n insulin drip, but we are hoping that with current management and as there is no bed available in [facility], this patient may not need a longer insulin drip. At that point, we will continue to check her Ac cu-Chek every 4 hourly and cover with insulin as per sliding scale. We will also resume her Glargine insulin 10 units subcu b.i.d. and increase the dose accordingly. At this point, we have initiated d iabetic ketoacidosis protocol treatment, but patient is still in the emergency room and seems like sh e has no anion gap and no metabolic acidosis. She will not need any longer insulin drip. Once blood sugar goes below, then we will start giving her regular insulin sliding scale per protocol. Her rep eat serum ketone is also negative. 2. Nausea, vomiting, abdominal pain. The patient will need symptomatic treatment with Phenergan 25 mg IV q.6 hourly, Pepcid 20 mg IV b.i.d. and pain control with pain medication as needed basis. 3. Hyponatremia likely due to pseudohyponatremia from hyperglycemia. We will repeat labs tomorrow. 4. Abnormal electrolytes like sodium, potassium, phosphorus, magnesium will be monitored and correct ed accordingly. 5. Anxiety disorder. We will continue anxiety medication as needed basis. 6. Dehydration. Patient will be given IV fluid today. 7. Deep venous thrombosis prophylaxis. Lovenox 30 mg subcutaneously daily. 8. Gastrointestinal prophylaxis, Pepcid 20 mg IV b.i.d. 9. Code status: The patient is FULL CODE. Patient's is surrogate decision maker. Disposition plan based on clinical course. We are expecting patient's stay in hospital more than 2 m idnights. Plan of care discussed with the patient and family member at bedside in the emergency room . ADDITIONAL NOTE: We are hoping that if the patient continued to remain in the ER hold, then we will consider transferring her to medical floor if her blood sugar gets better.
[2018-06-25 13:05] VITALS: BMI 18.3
[2018-06-25] MEDS: Fentanyl 100 MCG/2 ML VIAL SLOW IVP PRN ×3 (13:16→21:58)
[2018-06-25] MEDS ORDERED: Dextrose 50% Abboject 50 ML SYRINGE SLOW IVP PRN (13:28)
[2018-06-25] MEDS ORDERED: HumaLOG 300 UNITS/3 ML VIAL SC PRN ×2 (13:28)
[2018-06-25] MEDS ORDERED: Dextrose 5% in Water 1,000 ML IV PRN (13:28)
[2018-06-25] MEDS: Promethazine HCl 25 MG/ML VIAL IM/IV PRN (17:24)
[2018-06-25] MEDS: clonazePAM 0.5 MG TAB PO PRN (17:26)
[2018-06-25] MEDS: Sodium Chloride 0.9% 1,000 ML IV SCH (17:27)
[2018-06-25] MEDS ORDERED: Insulin Glargine 15 UNITS in Pre-Filled Syringe 1 EACH SC SCH (21:00)
[2018-06-25] MEDS: Famotidine/PF 20 mg/2ml Vial SLOW IVP SCH (21:57)
[2018-06-25] MEDS: Insulin Glargine 10 UNITS in Pre-Filled Syringe 1 EACH SC SCH (22:04)
[2018-06-26] MEDS: Promethazine HCl 25 MG/ML VIAL IM/IV PRN ×2 (02:34→08:38)
[2018-06-26] MEDS: clonazePAM 0.5 MG TAB PO PRN (02:34)
[2018-06-26] MEDS: Sodium Chloride 0.9% 1,000 ML IV SCH ×3 (02:36→22:46)
[2018-06-26 06:06] LABS: #Basophils 0.1 thou/uL (0.0-0.2); #Eosinphils 0.1 thou/uL (0.0-0.7); #Monocytes 0.6 thou/uL (0.11-0.59); #Neutrophils 6.7 thou/uL (1.40-6.50); %Basophils 0.7 % (0.0-1.0); %Eosinophils 0.9 % (0.0-10.0); %Lymphocytes 34.8 % (21.0-51.0); %Monocytes 5.6 % (0.0-10.0); %Neutrophils 58.1 % (42.0-75.0); Mean Corpuscular Hemoglobin 28.9 pg (27.0-31.0); Mean Corpuscular Volume 87.7 fL (78.0-98.0); Platelet Count 292 thou/uL (130-400); RBC Distribution Width 13.1 % (11.5-14.5); Red Blood Cell (RBC) Count 4.16 mill/uL (4.20-5.40); White Blood Cell (WBC) Count 11.5 thou/uL (4.8-10.8)
[2018-06-26 06:10] LABS: Hemoglobin A1c 11.6 % (4.0-6.0)
[2018-06-26 06:16] LABS: ALT (SGPT) 42 U/L (8-55); AST (SGOT) 30 U/L (5-34); Albumin 3.3 g/dL (3.5-5.0); Alkaline Phosphatase 69 U/L (40-150); Anion Gap 10 mmol/L (10-20); BUN (Urea Nitrogen) 9 mg/dL (7.0-18.7); Bilirubin, Total 0.4 mg/dL (0.2-1.2); Calc. Creatinine Clearance 81 mL/min (70-130); Calcium 7.9 mg/dL (7.8-10.44); Carbon Dioxide 20 mmol/L (22-29); Chloride 111 mmol/L (98-107); Estimated GFR-MDRD Greater than 90; Globulin 2.2 g/dL (2.4-3.5); Glucose 139 mg/dL (70-105); Potassium 3.5 mmol/L (3.5-5.1); Protein, Total 5.5 g/dL (6.0-8.3); Sodium 137 mmol/L (136-145)
[2018-06-26] MEDS: Fentanyl 100 MCG/2 ML VIAL SLOW IVP PRN ×3 (06:17→12:47)
[2018-06-26] MEDS: Famotidine/PF 20 mg/2ml Vial SLOW IVP SCH ×2 (08:37→20:42)
[2018-06-26] MEDS: Enoxaparin Sodium 30 MG/0.3 ML SYRINGE SC SCH (08:38)
[2018-06-26] MEDS: Insulin Glargine 10 UNITS in Pre-Filled Syringe 1 EACH SC SCH ×2 (08:39→20:46)
[2018-06-26] MEDS ORDERED: Insulin Glargine 15 UNITS in Pre-Filled Syringe 1 EACH SC SCH (09:00)
--- NOTE | 2018-06-26 10:49 | PDOC.PN ---
- Subjective Encounter Start Date: 06/26/18 Encounter Start Time: 08:40 pt c/o nausea, abdominal pain, not feeling good enough to go home - Objective Resuscitation Status: Resuscitation Status FULL:Full Resuscitation MAR Reviewed: Yes Vital Signs & Weight: Vital Signs (12 hours) Temp Pulse Resp BP Pulse Ox 06/26/18 07:40 97.9 F 71 16 06/26/18 07:39 97.9 F 71 16 99/69 97 06/26/18 06:11 97.8 F 71 114/76 06/26/18 00:10 98.0 F 87 16 117/63 97 Weight Weight 100 lb I&O: 06/25/18 06/26/18 06/27/18 06:59 06:59 06:59 Intake Total 1487 Balance 1487 Result Diagrams: 06/26/18 05:48 06/26/18 05:49 Additional Labs: Accuchecks 06/26/18 06/26/18 06/26/18 07:38 06:11 02:00 POC Glucose 117 H 129 H 135 H 06/25/18 06/25/18 06/25/18 22:08 18:06 12:33 POC Glucose 164 H 152 H 77 06/25/18 11:08 POC Glucose 226 H Phys Exam - Physical Examination Constitutional: NAD HEENT: PERRLA, moist MMs, sclera anicteric Neck: no JVD, supple Respiratory: no wheezing, no rales, no rhonchi Cardiovascular: RRR, no significant murmur, no rub Gastrointestinal: soft, no distention, positive bowel sounds subjective discomfort Musculoskeletal: no edema, pulses present Neurological: non-focal, normal sensation, moves all 4 limbs Psychiatric: normal affect, A&O x 3 Skin: no rash, normal turgor Dx/Plan (1) Abdominal pain Code(s): R10.9 - UNSPECIFIED ABDOMINAL PAIN Status: Acute Qualifiers: Comment: Due gastroparesis, supportive, Reglan, advance diet as tolerated (2) Diabetes type 1, uncontrolled Code(s): E10.65 - TYPE 1 DIABETES MELLITUS WITH HYPERGLYCEMIA Status: Acute Qualifiers: Comment: A1C 11.1, resume Insulin pump, ISS, continue IVF's (3) Hyperglycemia due to type 1 diabetes mellitus Code(s): E10.65 - TYPE 1 DIABETES MELLITUS WITH HYPERGLYCEMIA Status: Acute Comment: Improved with IVF's and supportive mgmt, serial accuchecks (4) Nausea & vomiting Code(s): R11.2 - NAUSEA WITH VOMITING, UNSPECIFIED Status: Acute Comment: With abd pain - Prob due gastroparesis/DKA (5) Gastroparesis Code(s): K31.84 - GASTROPARESIS Status: Chronic Comment: Supportive measures , Reglan, Zofran, IVF's (6) H/O chronic pancreatitis Code(s): Z87.19 - PERSONAL HISTORY OF OTHER DISEASES OF THE DIGESTIVE SYSTEM Status: Chronic (7) Hyperlipidemia Code(s): E78.5 - HYPERLIPIDEMIA, UNSPECIFIED Status: Chronic Qualifiers: (8) Secondary pancreatic insufficiency Code(s): K86.89 - OTHER SPECIFIED DISEASES OF PANCREAS Status: Chronic Comment: due to Pancreatic excision (9) DKA (diabetic ketoacidoses) Code(s): E13.10 - OTH DIABETES MELLITUS WITH KETOACIDOSIS WITHOUT COMA Status : Resolved Qualifiers: (10) Hyponatremia Code(s): E87.1 - HYPO-OSMOLALITY AND HYPONATREMIA Status: Resolved (11) Protein-calorie malnutrition, moderate Code(s): E44.0 - MODERATE PROTEIN-CALORIE MALNUTRITION Status: Chronic - Plan cont current plan of care * medication reviewed as below * symptomatic treatment * continue IVF * today will adjust her insulin dose. Review of Systems - Review of Systems Constitutional: negative: fever, chills, sweats, weakness, malaise, other Eyes: negative: Pain, Vision Change, Conjunctivae Inflammation, Eyelid Inflammation, Redness, Other ENT: negative: Ear Pain, Ear Discharge, Nose Pain, Nose Discharge, Nose Congestion, Mouth Pain, Mouth Swelling, Throat Pain, Throat Swelling, Other Respiratory: negative: Cough, Dry, Shortness of Breath, Hemoptysis, SOB with Excertion, Pleuritic Pain, Sputum, Wheezing Cardiovascular: negative: chest pain, palpitations, orthopnea, paroxysmal nocturnal dyspnea, edema, light headedness, other Gastrointestinal: Nausea, Abdominal Pain. negative: Vomiting, Diarrhea, Constipation, Melena, Hematochezia, Other Genitourinary: negative: Dysuria, Frequency, Incontinence, Hematuria, Retention , Other Musculoskeletal: negative: Neck Pain, Shoulder Pain, Arm Pain, Back Pain, Hand Pain, Leg Pain, Foot Pain, Other Skin: negative: Rash, Lesions, Arturo, Bruising, Other - Medications/Allergies Allergies/Adverse Reactions: Allergies Allergy/AdvReac Type Severity Reaction Status Date / Time cephalexin monohydrate Allergy Hives Verified 06/25/18 12:56 [From Keflex] codeine Allergy Hives Verified 06/25/18 12:56 iodine Allergy Verified 06/25/18 12:56 propofol Allergy Hives Verified 06/25/18 12:56 vancomycin Allergy Hives Verified 06/25/18 12:56 Medications: Current Medications Acetaminophen (Tylenol) 650 mg PO Q4H PRN PRN Reason: Headache/Fever or Pain Al Hydroxide/Mg Hydroxide (Maalox) 30 ml PO Q6H PRN PRN Reason: Heartburn or Indigestion Artificial Tears (Tears Naturale) 0 drop EA EYE PRN PRN PRN Reason: Dry Eyes Clonazepam (Klonopin) 0.5 mg PO TID PRN PRN Reason: Anxiety Last Admin: 06/26/18 02:34 Dose: 0.5 mg Dextrose/Water (Dextrose 50%) 25 gm SLOW IVP PRN PRN PRN Reason: Hypoglycemia Diphenhydramine HCl (Benadryl) 25 mg IVP Q6H PRN PRN Reason: Itching Enoxaparin Sodium (Lovenox) 30 mg SC 0900 [facility] Last Admin: 06/26/18 08:38 Dose: 30 mg Famotidine (Pepcid) 20 mg SLOW IVP Q12HR [facility] Last Admin: 06/26/18 08:37 Dose: 20 mg Fentanyl (Sublimaze) 25 mcg SLOW IVP Q2H PRN PRN Reason: Moderate to Severe Pain (6-10) Last Admin: 06/26/18 10:04 Dose: 25 mcg Glucagon (Glucagon) 1 mg IM PRN PRN PRN Reason: Hypoglycemia Guaifenesin (Robitussin Sf) 200 mg PO Q4H PRN PRN Reason: Cough Dextrose/Water (D5w) 1,000 mls @ 0 mls/hr IV .Q0M PRN PRN Reason: Hypoglycemia Insulin Glargine 10 units/ (Miscellaneous Medication) 0.1 mls @ 0 mls/hr SC HS [facility] Last Admin: 06/25/18 22:04 Dose: 0.1 mls Insulin Glargine 10 units/ (Miscellaneous Medication) 0.1 mls @ 0 mls/hr SC QAM [facility] Last Admin: 06/26/18 08:39 Dose: 0.1 mls Sodium Chloride (Normal Saline 0.9%) 1,000 mls @ 100 mls/hr IV .Q10H [facility] Last Admin: 06/26/18 02:36 Dose: 1,000 mls Insulin Human Lispro (Humalog) 0 units SC .AGGRESSIVE SLIDING PRN PRN Reason: Aggressive Correctional Scale Insulin Human Lispro (Humalog) 0 units SC .BEDTIME SLIDING SC PRN PRN Reason: Bedtime Correctional Scale Loperamide HCl (Imodium) 2 mg PO PRN PRN PRN Reason: Diarrhea/Loose Stools Loratadine (Claritin) 10 mg PO DAILYPRN PRN PRN Reason: Sinus Symptoms Magnesium Hydroxide (Milk Of Magnesium) 30 ml PO DAILYPRN PRN PRN Reason: Constipation Mineral Oil/White Petrolatum (Eucerin Cream) 0 gm TOP BIDPRN PRN PRN Reason: Dry Skin Phenol (Chloraseptic [place] 180 Ml Bot) 0 ml PO PRN PRN PRN Reason: Sore Throat Promethazine HCl (Phenergan) 25 mg IM/IV Q6H PRN PRN Reason: Nausea/Vomiting Last Admin: 06/26/18 08:38 Dose: 25 mg Senna (Senokot) 2 tab PO HSPRN PRN PRN Reason: Constipation Sodium Chloride ([place] Nasal [place] 0.65%) 0 ml EA NARE QIDPRN PRN PRN Reason: Nasal Congestion Sodium Chloride (Flush - Normal Saline) 10 ml IVF Q12HR [facility] Last Admin: 06/26/18 08:40 Dose: 10 ml Sodium Chloride (Flush - Normal Saline) 10 ml IVF PRN PRN PRN Reason: Saline Flush Zolpidem Tartrate (Ambien) 5 mg PO HSPRN PRN PRN Reason: Insomnia
[2018-06-26] MEDS: diphenhydrAMINE 50 MG/ML VIAL IVP PRN ×2 (16:42→20:42)
[2018-06-27] MEDS: diphenhydrAMINE 50 MG/ML VIAL IVP PRN ×6 (00:55→22:25)
[2018-06-27] MEDS: clonazePAM 0.5 MG TAB PO PRN ×2 (02:15→12:43)
[2018-06-27] MEDS: Sodium Chloride 0.9% 1,000 ML IV SCH ×2 (09:21→19:15)
[2018-06-27] MEDS: Famotidine/PF 20 mg/2ml Vial SLOW IVP SCH ×2 (09:22→22:24)
[2018-06-27] MEDS: Enoxaparin Sodium 30 MG/0.3 ML SYRINGE SC SCH (09:24)
[2018-06-27] MEDS: Insulin Glargine 10 UNITS in Pre-Filled Syringe 1 EACH SC SCH ×2 (09:25→22:36)
--- NOTE | 2018-06-27 11:00 | PDOC.PN ---
- Subjective Encounter Start Date: 06/27/18 Encounter Start Time: 08:00 Patient seen and examined. she feels little better but not normal, No overnight events - Objective Resuscitation Status: Resuscitation Status FULL:Full Resuscitation MAR Reviewed: Yes Vital Signs & Weight: Vital Signs (12 hours) Temp Pulse Resp BP Pulse Ox 06/27/18 08:54 98.5 F 62 20 106/61 97 06/27/18 04:08 97.9 F 77 18 108/79 06/27/18 00:45 97.9 F 80 18 120/79 Weight Admit Weight 100 lb Weight 100 lb I&O: 06/26/18 06/27/18 06/28/18 06:59 06:59 06:59 Intake Total 1487 1700 Balance 1487 1700 Result Diagrams: 06/26/18 05:48 06/26/18 05:49 Additional Labs: Accuchecks 06/27/18 06/27/18 06/27/18 09:04 04:04 00:44 POC Glucose 263 H 156 H 232 H 06/26/18 06/26/18 06/26/18 19:56 18:09 16:15 POC Glucose 186 H 229 H 113 H 06/26/18 12:35 POC Glucose 85 Phys Exam - Physical Examination Constitutional: NAD HEENT: PERRLA, moist MMs, sclera anicteric Neck: no JVD, supple Respiratory: no wheezing, no rales, no rhonchi Cardiovascular: RRR, no significant murmur, no rub Gastrointestinal: soft, non-tender, no distention, positive bowel sounds Musculoskeletal: no edema, pulses present Neurological: non-focal, normal sensation, moves all 4 limbs Psychiatric: normal affect, A&O x 3 Skin: no rash, normal turgor Dx/Plan (1) Nausea & vomiting Code(s): R11.2 - NAUSEA WITH VOMITING, UNSPECIFIED Status: Acute Comment: (2) Abdominal pain Code(s): R10.9 - UNSPECIFIED ABDOMINAL PAIN Status: Acute Qualifiers: Comment: (3) Protein-calorie malnutrition, moderate Code(s): E44.0 - MODERATE PROTEIN-CALORIE MALNUTRITION Status: Chronic (4) Diabetes type 1, uncontrolled Code(s): E10.65 - TYPE 1 DIABETES MELLITUS WITH HYPERGLYCEMIA Status: Acute Comment: (5) Hyperglycemia due to type 1 diabetes mellitus Code(s): E10.65 - TYPE 1 DIABETES MELLITUS WITH HYPERGLYCEMIA Status: Acute Comment: (6) Gastroparesis Code(s): K31.84 - GASTROPARESIS Status: Chronic Comment: (7) H/O chronic pancreatitis Code(s): Z87.19 - PERSONAL HISTORY OF OTHER DISEASES OF THE DIGESTIVE SYSTEM Status: Chronic (8) Hyperlipidemia Code(s): E78.5 - HYPERLIPIDEMIA, UNSPECIFIED Status: Chronic Qualifiers: (9) Secondary pancreatic insufficiency Code(s): K86.89 - OTHER SPECIFIED DISEASES OF PANCREAS Status: Chronic Comment: (10) DKA (diabetic ketoacidoses) Code(s): E13.10 - OTH DIABETES MELLITUS WITH KETOACIDOSIS WITHOUT COMA Status : Resolved Qualifiers: (11) Hyponatremia Code(s): E87.1 - HYPO-OSMOLALITY AND HYPONATREMIA Status: Resolved - Plan cont current plan of care * medication reviewed as below * symptomatic treatment * expecting discharge tomorrow. Review of Systems - Review of Systems Eyes: negative: Pain, Vision Change, Conjunctivae Inflammation, Eyelid Inflammation, Redness, Other ENT: negative: Ear Pain, Ear Discharge, Nose Pain, Nose Discharge, Nose Congestion, Mouth Pain, Mouth Swelling, Throat Pain, Throat Swelling, Other Respiratory: negative: Cough, Dry, Shortness of Breath, Hemoptysis, SOB with Excertion, Pleuritic Pain, Sputum, Wheezing Cardiovascular: negative: chest pain, palpitations, orthopnea, paroxysmal nocturnal dyspnea, edema, light headedness, other Gastrointestinal: Nausea, Abdominal Pain. negative: Vomiting, Diarrhea, Constipation, Melena, Hematochezia, Other Genitourinary: negative: Dysuria, Frequency, Incontinence, Hematuria, Retention , Other Musculoskeletal: negative: Neck Pain, Shoulder Pain, Arm Pain, Back Pain, Hand Pain, Leg Pain, Foot Pain, Other Skin: negative: Rash, Lesions, Arturo, Bruising, Other - Medications/Allergies Allergies/Adverse Reactions: Allergies Allergy/AdvReac Type Severity Reaction Status Date / Time cephalexin monohydrate Allergy Hives Verified 06/25/18 12:56 [From Keflex] codeine Allergy Hives Verified 06/25/18 12:56 iodine Allergy Verified 06/25/18 12:56 propofol Allergy Hives Verified 06/25/18 12:56 vancomycin Allergy Hives Verified 06/25/18 12:56 Medications: Current Medications Acetaminophen (Tylenol) 650 mg PO Q4H PRN PRN Reason: Headache/Fever or Pain Al Hydroxide/Mg Hydroxide (Maalox) 30 ml PO Q6H PRN PRN Reason: Heartburn or Indigestion Artificial Tears (Tears Naturale) 0 drop EA EYE PRN PRN PRN Reason: Dry Eyes Clonazepam (Klonopin) 0.5 mg PO TID PRN PRN Reason: Anxiety Last Admin: 06/27/18 02:15 Dose: 0.5 mg Dextrose/Water (Dextrose 50%) 25 gm SLOW IVP PRN PRN PRN Reason: Hypoglycemia Diphenhydramine HCl (Benadryl) 25 mg IVP Q4H PRN PRN Reason: Itching & Insomnia Last Admin: 06/27/18 09:23 Dose: 25 mg Enoxaparin Sodium (Lovenox) 30 mg SC 0900 [facility] Last Admin: 06/27/18 09:24 Dose: 30 mg Famotidine (Pepcid) 20 mg SLOW IVP Q12HR [facility] Last Admin: 06/27/18 09:22 Dose: 20 mg Glucagon (Glucagon) 1 mg IM PRN PRN PRN Reason: Hypoglycemia Guaifenesin (Robitussin Sf) 200 mg PO Q4H PRN PRN Reason: Cough Dextrose/Water (D5w) 1,000 mls @ 0 mls/hr IV .Q0M PRN PRN Reason: Hypoglycemia Insulin Glargine 10 units/ (Miscellaneous Medication) 0.1 mls @ 0 mls/hr SC HS [facility] Last Admin: 06/26/18 20:46 Dose: 0.1 mls Insulin Glargine 10 units/ (Miscellaneous Medication) 0.1 mls @ 0 mls/hr SC QAM [facility] Last Admin: 06/27/18 09:25 Dose: 0.1 mls Sodium Chloride (Normal Saline 0.9%) 1,000 mls @ 100 mls/hr IV .Q10H [facility] Last Admin: 06/27/18 09:21 Dose: 1,000 mls Insulin Human Lispro (Humalog) 0 units SC .AGGRESSIVE SLIDING PRN PRN Reason: Aggressive Correctional Scale Last Admin: 06/27/18 09:26 Dose: 9 unit Insulin Human Lispro (Humalog) 0 units SC .BEDTIME SLIDING SC PRN PRN Reason: Bedtime Correctional Scale Last Admin: 06/27/18 00:51 Dose: 2 unit Loperamide HCl (Imodium) 2 mg PO PRN PRN PRN Reason: Diarrhea/Loose Stools Loratadine (Claritin) 10 mg PO DAILYPRN PRN PRN Reason: Sinus Symptoms Magnesium Hydroxide (Milk Of Magnesium) 30 ml PO DAILYPRN PRN PRN Reason: Constipation Mineral Oil/White Petrolatum (Eucerin Cream) 0 gm TOP BIDPRN PRN PRN Reason: Dry Skin Morphine Sulfate (Morphine) 4 mg SLOW IVP Q4H PRN PRN Reason: Severe Pain (7-10) Last Admin: 06/27/18 10:48 Dose: 4 mg Phenol (Chloraseptic [place] 180 Ml Bot) 0 ml PO PRN PRN PRN Reason: Sore Throat Promethazine HCl (Phenergan) 25 mg IM/IV Q6H PRN PRN Reason: Nausea/Vomiting Last Admin: 06/26/18 08:38 Dose: 25 mg Senna (Senokot) 2 tab PO HSPRN PRN PRN Reason: Constipation Sodium Chloride ([place] Nasal [place] 0.65%) 0 ml EA NARE QIDPRN PRN PRN Reason: Nasal Congestion Sodium Chloride (Flush - Normal Saline) 10 ml IVF Q12HR [facility] Last Admin: 06/26/18 22:42 Dose: Not Given Sodium Chloride (Flush - Normal Saline) 10 ml IVF PRN PRN PRN Reason: Saline Flush Zolpidem Tartrate (Ambien) 5 mg PO HSPRN PRN PRN Reason: Insomnia
[2018-06-28] MEDS: diphenhydrAMINE 50 MG/ML VIAL IVP PRN ×2 (02:53→10:38)
[2018-06-28] MEDS: Sodium Chloride 0.9% 1,000 ML IV SCH (04:36)
[2018-06-28] MEDS: clonazePAM 0.5 MG TAB PO PRN ×2 (04:36→12:46)
--- NOTE | 2018-06-28 10:11 | PDOC.PN ---
- Subjective Encounter Start Date: 06/28/18 Encounter Start Time: 09:30 this morning pt ate completely, no vomiting, as per nursing she is demanding for pain meds, benadryl she appear comfortable this morning and noted soundly sleeping she does not have any distress - Objective Resuscitation Status: Resuscitation Status FULL:Full Resuscitation MAR Reviewed: Yes Vital Signs & Weight: Vital Signs (12 hours) Temp Pulse Resp BP 06/28/18 08:00 98.2 F 80 20 129/80 06/28/18 04:00 98.5 F 75 18 112/72 06/28/18 00:00 98.3 F 78 18 115/75 Weight Admit Weight 100 lb Weight 100 lb I&O: 06/27/18 06/28/18 06/29/18 06:59 06:59 06:59 Intake Total 1700 Balance 1700 Result Diagrams: 06/26/18 05:48 06/26/18 05:49 Additional Labs: Accuchecks 06/28/18 06/28/18 06/27/18 08:19 04:38 23:47 POC Glucose 114 H 63 L 136 H 06/27/18 06/27/18 06/27/18 20:35 18:27 14:05 POC Glucose 141 H 274 H 138 H Phys Exam - Physical Examination Constitutional: NAD HEENT: PERRLA, moist MMs, sclera anicteric Neck: no JVD, supple Respiratory: no wheezing, no rales, no rhonchi Cardiovascular: RRR, no significant murmur, no rub Gastrointestinal: soft, non-tender, no distention, positive bowel sounds Musculoskeletal: no edema, pulses present Neurological: non-focal, normal sensation, moves all 4 limbs Psychiatric: normal affect, A&O x 3 Skin: no rash, normal turgor Dx/Plan (1) Nausea & vomiting Code(s): R11.2 - NAUSEA WITH VOMITING, UNSPECIFIED Status: Resolved Comment : (2) Abdominal pain Code(s): R10.9 - UNSPECIFIED ABDOMINAL PAIN Status: Resolved Qualifiers: Comment: (3) Protein-calorie malnutrition, moderate Code(s): E44.0 - MODERATE PROTEIN-CALORIE MALNUTRITION Status: Chronic (4) Diabetes type 1, uncontrolled Code(s): E10.65 - TYPE 1 DIABETES MELLITUS WITH HYPERGLYCEMIA Status: Acute Comment: (5) Hyperglycemia due to type 1 diabetes mellitus Code(s): E10.65 - TYPE 1 DIABETES MELLITUS WITH HYPERGLYCEMIA Status: Resolved Comment: (6) Gastroparesis Code(s): K31.84 - GASTROPARESIS Status: Chronic Comment: (7) H/O chronic pancreatitis Code(s): Z87.19 - PERSONAL HISTORY OF OTHER DISEASES OF THE DIGESTIVE SYSTEM Status: Chronic (8) Hyperlipidemia Code(s): E78.5 - HYPERLIPIDEMIA, UNSPECIFIED Status: Chronic Qualifiers: (9) Secondary pancreatic insufficiency Code(s): K86.89 - OTHER SPECIFIED DISEASES OF PANCREAS Status: Chronic Comment: (10) DKA (diabetic ketoacidoses) Code(s): E13.10 - OTH DIABETES MELLITUS WITH KETOACIDOSIS WITHOUT COMA Status : Resolved Qualifiers: (11) Hyponatremia Code(s): E87.1 - HYPO-OSMOLALITY AND HYPONATREMIA Status: Resolved - Plan cont current plan of care * pt's condition has improved clinically * she is stable for discharge today * she has chronic compliant, but she needs outpt follow up * she is always high risk for readmission * medication reviewed as below * symptomatic treatment. Review of Systems - Review of Systems Constitutional: negative: fever, chills, sweats, weakness, malaise, other Eyes: negative: Pain, Vision Change, Conjunctivae Inflammation, Eyelid Inflammation, Redness, Other ENT: negative: Ear Pain, Ear Discharge, Nose Pain, Nose Discharge, Nose Congestion, Mouth Pain, Mouth Swelling, Throat Pain, Throat Swelling, Other Respiratory: negative: Cough, Dry, Shortness of Breath, Hemoptysis, SOB with Excertion, Pleuritic Pain, Sputum, Wheezing Cardiovascular: negative: chest pain, palpitations, orthopnea, paroxysmal nocturnal dyspnea, edema, light headedness, other Gastrointestinal: negative: Nausea, Vomiting, Abdominal Pain, Diarrhea, Constipation, Melena, Hematochezia, Other Genitourinary: negative: Dysuria, Frequency, Incontinence, Hematuria, Retention , Other Musculoskeletal: negative: Neck Pain, Shoulder Pain, Arm Pain, Back Pain, Hand Pain, Leg Pain, Foot Pain, Other Skin: negative: Rash, Lesions, Arturo, Bruising, Other - Medications/Allergies Allergies/Adverse Reactions: Allergies Allergy/AdvReac Type Severity Reaction Status Date / Time cephalexin monohydrate Allergy Hives Verified 06/25/18 12:56 [From Keflex] codeine Allergy Hives Verified 06/25/18 12:56 iodine Allergy Verified 06/25/18 12:56 propofol Allergy Hives Verified 06/25/18 12:56 vancomycin Allergy Hives Verified 06/25/18 12:56 Medications: Current Medications Acetaminophen (Tylenol) 650 mg PO Q4H PRN PRN Reason: Headache/Fever or Pain Al Hydroxide/Mg Hydroxide (Maalox) 30 ml PO Q6H PRN PRN Reason: Heartburn or Indigestion Artificial Tears (Tears Naturale) 0 drop EA EYE PRN PRN PRN Reason: Dry Eyes Clonazepam (Klonopin) 0.5 mg PO TID PRN PRN Reason: Anxiety Last Admin: 06/28/18 04:36 Dose: 0.5 mg Dextrose/Water (Dextrose 50%) 25 gm SLOW IVP PRN PRN PRN Reason: Hypoglycemia Diphenhydramine HCl (Benadryl) 25 mg IVP Q4H PRN PRN Reason: Itching & Insomnia Last Admin: 06/28/18 02:53 Dose: 25 mg Enoxaparin Sodium (Lovenox) 30 mg SC 0900 [facility] Last Admin: 06/27/18 09:24 Dose: 30 mg Famotidine (Pepcid) 20 mg SLOW IVP Q12HR [facility] Last Admin: 06/27/18 22:24 Dose: 20 mg Glucagon (Glucagon) 1 mg IM PRN PRN PRN Reason: Hypoglycemia Guaifenesin (Robitussin Sf) 200 mg PO Q4H PRN PRN Reason: Cough Dextrose/Water (D5w) 1,000 mls @ 0 mls/hr IV .Q0M PRN PRN Reason: Hypoglycemia Insulin Glargine 10 units/ (Miscellaneous Medication) 0.1 mls @ 0 mls/hr SC HS [facility] Last Admin: 06/27/18 22:36 Dose: 0.1 mls Insulin Glargine 10 units/ (Miscellaneous Medication) 0.1 mls @ 0 mls/hr SC QAM [facility] Last Admin: 06/27/18 09:25 Dose: 0.1 mls Sodium Chloride (Normal Saline 0.9%) 1,000 mls @ 100 mls/hr IV .Q10H [facility] Last Admin: 06/28/18 04:36 Dose: 1,000 mls Insulin Human Lispro (Humalog) 0 units SC .AGGRESSIVE SLIDING PRN PRN Reason: Aggressive Correctional Scale Last Admin: 06/27/18 09:26 Dose: 9 unit Insulin Human Lispro (Humalog) 0 units SC .BEDTIME SLIDING SC PRN PRN Reason: Bedtime Correctional Scale Last Admin: 06/27/18 00:51 Dose: 2 unit Loperamide HCl (Imodium) 2 mg PO PRN PRN PRN Reason: Diarrhea/Loose Stools Loratadine (Claritin) 10 mg PO DAILYPRN PRN PRN Reason: Sinus Symptoms Magnesium Hydroxide (Milk Of Magnesium) 30 ml PO DAILYPRN PRN PRN Reason: Constipation Mineral Oil/White Petrolatum (Eucerin Cream) 0 gm TOP BIDPRN PRN PRN Reason: Dry Skin Morphine Sulfate (Morphine) 4 mg SLOW IVP Q4H PRN PRN Reason: Severe Pain (7-10) Last Admin: 06/28/18 08:14 Dose: 4 mg Phenol (Chloraseptic [place] 180 Ml Bot) 0 ml PO PRN PRN PRN Reason: Sore Throat Promethazine HCl (Phenergan) 25 mg IM/IV Q6H PRN PRN Reason: Nausea/Vomiting Last Admin: 06/26/18 08:38 Dose: 25 mg Senna (Senokot) 2 tab PO HSPRN PRN PRN Reason: Constipation Sodium Chloride (Britt Nasal [place] 0.65%) 0 ml EA NARE QIDPRN PRN PRN Reason: Nasal Congestion Sodium Chloride (Flush - Normal Saline) 10 ml IVF Q12HR [facility] Last Admin: 06/27/18 22:39 Dose: Not Given Sodium Chloride (Flush - Normal Saline) 10 ml IVF PRN PRN PRN Reason: Saline Flush Zolpidem Tartrate (Ambien) 5 mg PO HSPRN PRN PRN Reason: Insomnia Last Admin: 06/27/18 23:45 Dose: 5 mg
[2018-06-28] MEDS: Famotidine/PF 20 mg/2ml Vial SLOW IVP SCH (10:39)
[2018-06-28] MEDS: Enoxaparin Sodium 30 MG/0.3 ML SYRINGE SC SCH (10:39)
[2018-06-28] MEDS: Insulin Glargine 10 UNITS in Pre-Filled Syringe 1 EACH SC SCH (10:39)
--- NOTE | 2018-06-28 11:29 | DIS ---
DATE OF ADMISSION: 06/25/2018 DATE OF DISCHARGE: 06/28/2018 PRIMARY CARE PHYSICIAN: Dr. Dean Vazquez. DISCHARGE DISPOSITION: Home. PRIMARY DISCHARGE DIAGNOSES: 1. Mild diabetic ketoacidosis, resolved. 2. Hyperglycemia associated with diabetes type 1. 3. Diabetes type 1, uncontrolled. 4. Nausea, vomiting, resolved. 5. Abdominal pain, resolved. 6. Hyponatremia, corrected. SECONDARY DISCHARGE DIAGNOSES: Diabetes type 1, anxiety and depression, diabetic gastroparesis, hist ory of chronic pancreatitis, dyslipidemia, moderate protein calorie malnutrition, secondary pancreati c insufficiency, recurrent admission for abdominal pain, nausea, vomiting, and diabetic ketoacidosis, noncompliance with treatment. PRIMARY PROCEDURE AND OPERATION: None. RADIOLOGICAL INVESTIGATION: None. SIGNIFICANT LABORATORY DATA: WBC 11.5, hemoglobin 12.0, platelet 292. Sodium 137, creatinine 0.68. Liver enzymes normal. Albumin 3.3. Hemoglobin A1c 11.6. Serum ketones 0.14 and then 2.59. DISCHARGE MEDICATIONS: Klonopin 0.5 mg p.o. t.i.d. p.r.n., Glargine insulin 10 units subcu b.i.d. CONTRAINDICATIONS: None. CODE STATUS: FULL CODE. INPATIENT CONSULTANTS: None. ALLERGIES: KEFLEX, CODEINE, IODINE, PROPOFOL, VANCOMYCIN. The patient also reports not tolerating Z ofran and Reglan. DISCHARGE PLAN: Post hospital, the patient is instructed to follow up with primary care physician. HOSPITAL COURSE: A 37-year-old female with the above-mentioned medical problem who presented to [facility] room with nausea, vomiting, abdominal pain. Because of that, the patient was not taking her in sulin, which she is supposed to take. On admission, she was found with hyperglycemia. She had pseud ohyponatremia with a sodium of 129. Her blood sugar on admission was 799. She was initially treated with insulin drip, IV fluid for DKA. She had mild ketosis on admission. The patient's anion gap re solved on the same day we transferred her to medical floor. The patient's hyperglycemia is significa ntly improved with the insulin. Her hemoglobin A1c is 11.6, seems like patient is not able to take c are of her diabetes well because of her noncompliance. At this point, the patient is only complainin g of recurrent nausea, vomiting, abdominal pain, and that is why we treated her in hospital for sympt omatic treatment. Today, the patient is completely stabilized. She is tolerating p.o. well. She is ambulatory, but still pretending that she does have nausea, vomiting, abdominal pain. At this point , the clinical evidence does not support any of her complaint. The patient is malingering and she wo uld like to stay in hospital. At this point, there is no medical necessity based on my medical opini on. The patient can be discharged home with the above-mentioned medication. This patient is continu ed to be high risk for recurrent admission because of her noncompliance status.
[2018-06-28 11:57] VITALS: BP 110/70; TEMP 98.3
== END 2018-06-28 13:20 | disposition home or self-care (01) | DRG 638 ==
LOC: ERS 05:46 → ERHOLD 08:27 → IMCU/EMU 12:57 → 3SE 19:45
PROVIDERS: ADMIT Internal Medicine; ATTEND Internal Medicine
DX: E10.10 Type 1 diabetes mellitus with ketoacidosis without coma (principal); E87.1 Hypo-osmolality and hyponatremia; E44.0 Moderate protein-calorie malnutrition; Z68.1 Body mass index [BMI] 19.9 or less, adult; K86.1 Other chronic pancreatitis; Z79.4 Long term (current) use of insulin; E86.0 Dehydration; E10.43 Type 1 diabetes mellitus with diabetic autonomic (poly)neuropathy; K31.84 Gastroparesis; E78.5 Hyperlipidemia, unspecified; F41.9 Anxiety disorder, unspecified
CPT/HCPCS: 36415; 36416; 80053; 82010; 82330; 82803; 83036; 83735; 84100; 85025; 96361; 96365; 96366; 96375; 96376; A4216; J1200; J1650; J1815; J2270; J2550; J3010; J7050; S0028

== ENCOUNTER 2018-07-04 20:08 | Inpatient (IN) | payer SELFPAY, OTHER ==
[2018-07-04 21:11] LABS: Bilirubin Negative (Negative); Blood, Urine Trace (Negative); Clarity CLEAR (Clear); Glucose, Urine (Dipstick) >=1000 mg/dL (Negative); Leukocyte Negative (Negative); Nitrite Negative (Negative); Protein, Urine (Dipstick) Negative (Neg-Trace); Specific Gravity, Urine 1.033 (1.002-1.036); Urobilinogen 0.2 mg/dL (0.2-1.0)
[2018-07-04] MEDS ORDERED: Promethazine HCl 25 MG/ML VIAL ONE ×2 (21:13→23:14)
[2018-07-04 21:14] LABS: Bacteria/HPF 4+ HPF (None Seen); Hyaline Casts/LPF 0-3 HYALINE CAST LPF (0-3 Hyaline); Pathc Cast-AUWi Flag 0.14 (0-2.49); Squamous Epithelial 0-3 HPF (0-3)
[2018-07-04] MEDS ORDERED: diphenhydrAMINE 50 MG/ML VIAL ONE (21:15)
[2018-07-04 22:08] LABS: Base Excess-Venous -5.7 mmol/L (0 (+/- 2.5)); Bicarbonate (HCO3v) 20.2 mmol/L (1.0-85.0); Calcium, Ionized 1.02 mmol/L (1.12-1.32); Hemoglobin - Calc 14.2 g/dL (12.0-18.0); Potassium 3.7 mmol/L (3.4-4.7); T. Carbon Dioxide 21.4 mmol/L (1.0-85.0); pH (Venous) 7.311 (7.35-7.45); vO2 Saturation-calc 89.2 % (94-98)
[2018-07-04 22:14] LABS: #Basophils 0.1 thou/uL (0.0-0.2); #Lymphocytes 3.2 thou/uL (1.20-3.40); #Monocytes 0.7 thou/uL (0.11-0.59); #Neutrophils 5.5 thou/uL (1.40-6.50); %Basophils 0.8 % (0.0-1.0); %Eosinophils 0.4 % (0.0-10.0); %Lymphocytes 33.4 % (21.0-51.0); %Monocytes 7.3 % (0.0-10.0); Hemoglobin 12.5 g/dL (12.0-16.0); Mean Corpuscular HGB CONC 31.7 g/dL (32.0-36.0); Mean Corpuscular Hemoglobin 28.5 pg (27.0-31.0); Mean Corpuscular Volume 89.6 fL (78.0-98.0); Mean Platelet Volume 9.6 fL (7.4-10.4); PLT Morphology Comment Appears Adequate; Platelet Count 231 thou/uL (130-400); RBC Distribution Width 13.3 % (11.5-14.5); Red Blood Cell (RBC) Count 4.41 mill/uL (4.20-5.40); White Blood Cell (WBC) Count 9.5 thou/uL (4.8-10.8)
[2018-07-04 22:16] LABS: ALT (SGPT) 70 U/L (8-55); AST (SGOT) 73 U/L (5-34); Albumin 3.6 g/dL (3.5-5.0); Alkaline Phosphatase 78 U/L (40-150); Anion Gap 15 mmol/L (10-20); BUN (Urea Nitrogen) 6 mg/dL (7.0-18.7); Bilirubin, Total 0.2 mg/dL (0.2-1.2); CK (CPK) 116 U/L (29-168); Calc. Creatinine Clearance 0 mL/min (70-130); Calcium 8.1 mg/dL (7.8-10.44); Carbon Dioxide 20 mmol/L (22-29); Chloride 101 mmol/L (98-107); Estimated GFR-MDRD 56; Globulin 2.8 g/dL (2.4-3.5); Lipase 11 U/L (8-78); Potassium 3.7 mmol/L (3.5-5.1); Protein, Total 6.4 g/dL (6.0-8.3); Sodium 132 mmol/L (136-145)
[2018-07-04 22:19] LABS: CKMB 1.3 ng/mL (0-6.6); Troponin I Less than 0.010 ng/mL (< 0.028)
[2018-07-04 22:22] LABS: BHCG - Serum Negative (NEGATIVE); Pregs Control Background? CLEAR/WHITE (CLR/WHITE); Pregs Control Bar Appear? YES (CONTROL BAR)
[2018-07-04 22:24] LABS: Glucose 797 mg/dL (70-105)
[2018-07-04] MEDS ORDERED: Potassium Chloride 20 MEQ TAB ONE (23:14)
[2018-07-04] MEDS ORDERED: Insulin Regular 300 UNITS/3 ML VIAL ONE (23:14)
[2018-07-05] MEDS ORDERED: Promethazine HCl 25 MG in Sodium Chloride 0.9% 50 ML IVPB PRN (00:29)
[2018-07-05] MEDS ORDERED: diphenhydrAMINE 50 MG/ML VIAL IVP PRN ×2 (00:37→17:55)
[2018-07-05] MEDS: diphenhydrAMINE 50 MG/ML VIAL IVP PRN ×5 (00:49→16:32)
[2018-07-05] MEDS ORDERED: Senokot 8.6 MG TAB PO PRN (01:01)
[2018-07-05] MEDS ORDERED: CCU Electrolyte Replacement 1 EACH IVPB ONE (01:01)
[2018-07-05] MEDS ORDERED: Nitroglycerin 0.4 MG TAB (25 Tab Bottle) SL PRN (01:01)
[2018-07-05] MEDS ORDERED: Lorazepam 1 MG TAB PO PRN (01:01)
[2018-07-05] MEDS ORDERED: D5 1/2 NS w/20 mEq KCL 1,000 ML IV PRN (01:01)
[2018-07-05] MEDS ORDERED: cloNIDine 0.1 MG TAB PO PRN (01:01)
[2018-07-05] MEDS ORDERED: NS 0.9% w/ 20 MEQ KCL 1,000 ML IV PRN ×2 (01:01)
[2018-07-05] MEDS ORDERED: Acetaminophen 325 MG TAB PO PRN (01:01)
[2018-07-05] MEDS ORDERED: Loratadine 10 MG TAB PO PRN (01:01)
[2018-07-05] MEDS ORDERED: Bisacodyl 5 MG TAB PO PRN (01:01)
[2018-07-05] MEDS ORDERED: Sodium Chloride 0.9% 1,000 ML IV PRN ×4 (01:01)
[2018-07-05] MEDS ORDERED: Mag-Al 1200 mg/1200 mg/30 ML UDCUP PO PRN (01:01)
[2018-07-05] MEDS ORDERED: Calcium Carbonate 500 MG ChewTAB PO PRN (01:01)
[2018-07-05] MEDS ORDERED: Ondansetron HCl/PF 4 MG/2 ML Vial IVP PRN (01:01)
[2018-07-05] MEDS ORDERED: Benzonatate 100 MG CAP PO PRN (01:01)
[2018-07-05] MEDS ORDERED: hydrALAZINE 20 MG/ML VIAL SLOW IVP PRN (01:01)
[2018-07-05] MEDS ORDERED: Diabetic Tussin 200 MG/10 ML UDCUP PO PRN (01:01)
[2018-07-05] MEDS ORDERED: Dextrose 5 %-0.45 % NaCl 1,000 ML IV PRN (01:01)
[2018-07-05] MEDS ORDERED: clonazePAM 0.5 MG TAB PO PRN (01:30)
[2018-07-05 01:32] VITALS: BMI 17.7
--- NOTE | 2018-07-05 02:18 | HP ---
DATE OF ADMISSION: 07/05/2018 Patient was seen prior to midnight. PRIMARY CARE PHYSICIAN: Dr. Dean Vazquez. CHIEF COMPLAINT: Elevated blood sugar. HISTORY OF PRESENTING ILLNESS: Ms. Iirs Alamo is a 37-year-old female with known history of diabete s secondary to pancreas excision and multiple episodes of DKA as well as history of chronic pancreati tis who presented to the emergency room with above-mentioned complaint. History is mainly obtained b y the patient herself. Electronic medical records have been reviewed. Patient was recently admitted to our facility on 06/30/2018 for same reason with uncontrolled diabete s and hyperglycemia without DKA and was admitted and treated with long and short-acting insulin. She ended up leaving against medical advice yesterday, because she felt that her sugars are not under an y better controlled and she said that she could do that at home and was worried about the cost as she is uninsured. Today, she had a hard time controlling her sugars at home and they were running too high for the mete r and she was having persistent abdominal pain, which she correlates with her high blood sugars and a lso has been having vomiting. She presented to the ER with these symptoms and was found to have a bl ood sugar of 797 without evidence of diabetic ketoacidosis. She was started on insulin drip in the e mergency room and despite fluids and insulin drip, her sugar remained high enough not been able to re gister with a glucometer in the ER. Because of this reason, she was continued on insulin drip and wi ll be admitted to IMCU for possible hyperosmolar nonketotic hyperglycemia. She also has incidental f inding of +4 bacteria in her urine and multiple WBCs. The patient herself denies any fever, chills, cough, shortness of breath, or chest pain. She denies any dysuria, frequency, urgency. She reports that CT scan of the abdomen and pelvis was done in the hospital yesterday and she was told that she has significant impaction and constipation, but she repo rts that she cannot hold onto any fluid and whatever she comes out. She would have a bowel movement of right after that. She denies being constipated. She denies any blood in the stools. PAST MEDICAL HISTORY: 1. Multiple admissions for diabetic ketoacidosis, seven this year. 2. History of diabetes mellitus, type 1. 3. Chronic pancreatitis. 4. 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 PAST PSYCHIATRIC HISTORY: Anxiety and depression. PAST SURGICAL HISTORY: 1. Pancreatectomy. 2. History of insulin pump implantation and subsequent removal. 3. Cholecystectomy. 4. Appendectomy. 5. Splenectomy. 6. 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 7. History of islet cell transplantation. ALLERGIES: KEFLEX, CODEINE, IODINE, PROPOFOL, VANCOMYCIN and she does not also tolerate ZOFRAN and R EGLAN per patient. FAMILY HISTORY: No strong family history of premature coronary artery disease, stroke, or cancer. SOCIAL HISTORY: She lives in [place], [place]. She is and lives with her . No history of drug, tobacco, or alcohol abuse. MEDICATIONS: Klonopin 0.5 mg p.o. t.i.d. p.r.n. for anxiety and insulin glargine Basaglar KwikPen 10 units subcutaneous b.i.d. REVIEW OF SYSTEMS: A 12-point review of systems is done and is negative except for those mentioned i n history and physical. LABORATORY DATA: Her CBC is unremarkable. VBG shows pH of 7.3, pCO2 of 40, pO2 of 62. Serum chemis try shows sodium of 132, bicarbonate 20, anion gap of 15, BUN, creatinine, GFR are within normal rang e. Blood sugar 797, AST 73, ALT 70. Troponin and cardiac enzymes negative. Lipase normal at 11. S caio test negative. Urinalysis shows glucosuria and wbc and +4 bacteria. Beta hydroxybuty rate normal range at 0.13. PHYSICAL EXAMINATION: VITAL SIGNS: Most recent vital signs temperature 97.4, pulse of 83, respirations 19, saturating 96% on room air, blood pressure 137/70. GENERAL: No acute distress. She is pale and frail appearing, but is awake, alert, oriented x3. HEENT: Mucous membrane is slightly dry. No oropharyngeal exudate or erythema. Head is normocephali c, atraumatic. Pupils equal, reactive to light and accommodation. Extraocular movement intact. NECK: Supple without any lymphadenopathy, JVD, or bruit. CHEST: Clear to auscultation without any wheezing, rales, or rhonchi. HEART: Rate and rhythm is regular without any murmur, rubs, or gallops. ABDOMEN: Soft, nontender, nondistended with positive bowel sound. She has a central midline scar fr om prior surgery. EXTREMITIES: Free of any cyanosis, clubbing, or edema. NEUROLOGIC: Nonfocal. SKIN: Free of any rashes or bruises. Feel warm and dry to touch. PSYCHIATRIC: Normal affect. IMPRESSION AND PLAN: 1. Hyperosmolar nonketotic hyperglycemia. The patient reports failure to control her blood sugar wi subcutaneously insulin. We will check serum osmolality, but we will treat her as HONK. She will be on diabetic ketoacidosis protocol, even though she is not diabetic ketoacidosis. Especially in th e light of the fact that she has urinary tract infection, and she had failed control of blood sugar d uring her last hospitalization for the last 3 days of the hospital course. We will check her sugars every one hour and stop the insulin drip after giving her long-acting insulin and started on insulin sliding scale: Once her blood sugars are better. She will be continued on IV fluids per the diabetic ketoacidosis protocol. Symptomatic and supportive care will be provided. We will repeat the BMP in the morning and also check a magnesium and phosphorus level. 2. Urinary tract infection. We will send the urine already collected for culture and start her on e mpiric antibiotic. 3. History of chronic pancreatitis. No evidence of acute pancreatitis at this time. She will be sy mptomatically treated. 4. Nausea, vomiting, and abdominal pain. We will continue symptomatic treatment with Benadryl 12.5 mg every 4 hours and morphine for pain control p.r.n. as requested by the patient. 5. History of anxiety disorder. We will resume her Klonopin p.r.n. 6. Dehydration. She will be given IV fluids. 7. Deep venous thrombosis and gastrointestinal prophylaxis. 8. Code status: FULL CODE discussed with the patient. DISPOSITION: Ms. Alamo is currently being admitted to the [facility] for HONK. Estimated length of stay at this time is at least 2-3 midnights. Further management will depend upon her clinical course.
[2018-07-05 05:05] LABS: Hemoglobin 10.7 g/dL (12.0-16.0); Mean Corpuscular HGB CONC 32.5 g/dL (32.0-36.0); Mean Corpuscular Hemoglobin 28.5 pg (27.0-31.0); Mean Corpuscular Volume 87.6 fL (78.0-98.0); Mean Platelet Volume 8.6 fL (7.4-10.4); Platelet Count 293 thou/uL (130-400); RBC Distribution Width 12.9 % (11.5-14.5); Red Blood Cell (RBC) Count 3.76 mill/uL (4.20-5.40); White Blood Cell (WBC) Count 10.3 thou/uL (4.8-10.8)
[2018-07-05 05:20] LABS: Magnesium 1.4 mg/dL (1.6-2.6); Phosphorus 2.3 mg/dL (2.3-4.7)
[2018-07-05] MEDS: Insulin Glargine 10 UNITS in Pre-Filled Syringe 1 EACH SC SCH ×2 (08:49→20:37)
[2018-07-05] MEDS ORDERED: Non-Formulary Item 1 EACH (Insulin Glargine,Hum.Rec.Anlog [Basaglar Kwikpen U-100] 10 UNI SQ SCH (09:00)
--- NOTE | 2018-07-05 12:56 | PDOC.PN ---
- Subjective Encounter Start Date: 07/05/18 Encounter Start Time: 10:40 Subjective: feels better, c/o abd pain in epigastric area -: no nausea now - Objective MAR Reviewed: Yes Vital Signs & Weight: Vital Signs (12 hours) Temp Pulse Resp BP Pulse Ox 07/05/18 11:37 97.6 F 69 12 102/59 L 99 07/05/18 07:52 98.2 F 68 12 07/05/18 07:39 98.2 F 68 12 92/57 L 99 07/05/18 04:00 98.0 F 63 16 92/48 L 98 Weight Weight 103 lb 9.876 oz I&O: 07/04/18 07/05/18 07/06/18 06:59 06:59 06:59 Intake Total 1700 Output Total 1500 Balance 200 Result Diagrams: 07/05/18 04:55 07/04/18 21:41 Additional Labs: Accuchecks 07/05/18 07/05/18 07/05/18 10:42 08:09 06:52 POC Glucose 214 H 131 H 183 H 07/05/18 07/05/18 07/05/18 05:52 05:02 04:11 POC Glucose 163 H 149 H 157 H 07/05/18 07/05/18 07/05/18 03:00 02:17 01:38 POC Glucose 217 H 209 H 238 H 07/05/18 07/04/18 07/04/18 01:04 23:22 20:39 POC Glucose 313 H Greater than 550 H* Greater than 550 H* Phys Exam - Physical Examination HEENT: PERRLA, moist MMs Neck: no JVD, supple Respiratory: no wheezing, no rales Cardiovascular: RRR, no significant murmur Gastrointestinal: soft, no distention, positive bowel sounds no rigidity or guarding Musculoskeletal: no edema, pulses present Neurological: non-focal, moves all 4 limbs Psychiatric: normal affect, A&O x 3 Dx/Plan (1) Diabetes type 1, uncontrolled Code(s): E10.65 - TYPE 1 DIABETES MELLITUS WITH HYPERGLYCEMIA Status: Chronic Qualifiers: Glycemic state: with hyperglycemia Qualified Code(s): E10.65 - Type 1 diabetes mellitus with hyperglycemia Comment: Continue Lantus and insulin sliding scale. (2) Abdominal pain Code(s): R10.9 - UNSPECIFIED ABDOMINAL PAIN Status: Acute Qualifiers: Abdominal location: epigastric Qualified Code(s): R10.13 - Epigastric pain (3) Nausea & vomiting Code(s): R11.2 - NAUSEA WITH VOMITING, UNSPECIFIED Status: Acute Qualifiers: Vomiting Intractability: unspecified Comment: on PRN antiemetics, improving (4) Gastroparesis Code(s): K31.84 - GASTROPARESIS Status: Chronic Comment: (5) H/O chronic pancreatitis Code(s): Z87.19 - PERSONAL HISTORY OF OTHER DISEASES OF THE DIGESTIVE SYSTEM Status: Chronic (6) Hyperlipidemia Code(s): E78.5 - HYPERLIPIDEMIA, UNSPECIFIED Status: Chronic Qualifiers: Hyperlipidemia type: unspecified (7) Protein-calorie malnutrition, moderate Code(s): E44.0 - MODERATE PROTEIN-CALORIE MALNUTRITION Status: Chronic - Plan dc iv insulin drip, home dose of insulins -: iv hydration with ns at 60mls/hr till am -: dc plan in am -: to amb in hallway as tolerated * . Review of Systems - Medications/Allergies Allergies/Adverse Reactions: Allergies Allergy/AdvReac Type Severity Reaction Status Date / Time cephalexin monohydrate Allergy Hives Verified 07/05/18 01:29 [From Keflex] codeine Allergy Hives Verified 07/05/18 01:29 iodine Allergy Verified 07/05/18 01:29 metoclopramide [From Reglan] Allergy Diarrhea Verified 07/05/18 01:29 propofol Allergy Hives Verified 07/05/18 01:29 vancomycin Allergy Hives Verified 07/05/18 01:29 ondansetron [From Zofran] AdvReac Verified 07/05/18 01:29 Medications: Current Medications Acetaminophen (Tylenol) 650 mg PO Q4H PRN PRN Reason: Headache/Fever or Mild Pain Al Hydroxide/Mg Hydroxide (Maalox) 15 ml PO Q4H PRN PRN Reason: Heartburn or Indigestion Benzonatate (Tessalon) 100 mg PO Q4H PRN PRN Reason: Cough Bisacodyl (Dulcolax) 10 mg PO DAILYPRN PRN PRN Reason: Constipation Calcium Carbonate (Tums) 1,000 mg PO Q4H PRN PRN Reason: Heartburn or Indigestion Clonazepam (Klonopin) 0.5 mg PO TIDPRN PRN PRN Reason: Anxiety Clonidine (Catapres) 0.1 mg PO Q4H PRN PRN Reason: Systolic BP > 160 Diphenhydramine HCl (Benadryl) 12.5 mg IVP Q4H PRN PRN Reason: Itching & Insomnia Last Admin: 07/05/18 12:40 Dose: 12.5 mg Guaifenesin (Robitussin Sf) 200 mg PO Q4H PRN PRN Reason: Cough Hydralazine HCl (Apresoline) 10 mg SLOW IVP Q4H PRN PRN Reason: Systolic BP > 180 Dextrose/Sodium Chloride (D5 1/2 Ns) 1,000 mls @ 250 mls/hr IV .Q4H PRN; Protocol PRN Reason: Step 4 of DKA Protocol Potassium Chloride/Dextrose/Sod Cl (D5 1/2 Ns W/20 Meq Kcl) 1,000 mls @ 250 mls /hr IV .Q4H PRN; Protocol PRN Reason: Step 4 of DKA Protocol Last Admin: 07/05/18 01:52 Dose: 1,000 mls Insulin Human Regular 100 (units/ Sodium Chloride) 101 mls @ 0 mls/hr IVPB INF [facility]; Protocol Sodium Chloride (Normal Saline 0.9%) 1,000 mls @ 500 mls/hr IV .Q2H PRN; Protocol PRN Reason: Step 1 of DKA Protocol Sodium Chloride (Normal Saline 0.9%) 1,000 mls @ 1,000 mls/hr IV .Q1H PRN; Protocol PRN Reason: Step 1 of DKA Protocol Sodium Chloride (Normal Saline 0.9%) 1,000 mls @ 250 mls/hr IV .Q4H PRN; Protocol PRN Reason: SEE STEP 3 OF DKA PROTOCOL Sodium Chloride (Normal Saline 0.9%) 1,000 mls @ 500 mls/hr IV .Q2H PRN; Protocol PRN Reason: Step 2 of DKA Protocol Potassium Chloride/Sodium Chloride (Ns 0.9% W/ 20 Meq Kcl) 1,000 mls @ 500 mls/ hr IV .Q2H PRN; Protocol PRN Reason: Step 2 of DKA Protocol Potassium Chloride/Sodium Chloride (Ns 0.9% W/ 20 Meq Kcl) 1,000 mls @ 250 mls/ hr IV .Q4H PRN; Protocol PRN Reason: SEE STEP 3 OF DKA PROTOCOL Insulin Glargine 10 units/ (Miscellaneous Medication) 0.1 mls @ 0 mls/hr SC BID [facility] Last Admin: 07/05/18 08:49 Dose: 0.1 mls Levofloxacin 500 mg/ Device 100 mls @ 100 mls/hr IVPB Q24HR [facility] Last Admin: 07/05/18 03:12 Dose: 100 mls Loratadine (Claritin) 10 mg PO DAILYPRN PRN PRN Reason: Sinus Symptoms Lorazepam (Ativan) 1 mg PO Q4H PRN PRN Reason: Anxiety/Agitation Morphine Sulfate (Morphine) 2 mg SLOW IVP Q4H PRN PRN Reason: Pain Last Admin: 07/05/18 12:39 Dose: 2 mg Nitroglycerin (Nitrostat) 0.4 mg SL Q5MIN PRN PRN Reason: Chest Pain Senna (Senokot) 2 tab PO HSPRN PRN PRN Reason: Constipation Sodium Chloride (Flush - Normal Saline) 10 ml IVF Q12HR [facility] Last Admin: 07/05/18 09:11 Dose: 10 ml Sodium Chloride (Flush - Normal Saline) 10 ml IVF PRN PRN PRN Reason: Saline Flush
[2018-07-05] MEDS ORDERED: Dextrose 50% Abboject 50 ML SYRINGE SLOW IVP PRN (18:21)
[2018-07-05] MEDS ORDERED: Sodium Chloride 0.9% 1,000 ML IV SCH (18:21)
[2018-07-05] MEDS ORDERED: Dextrose 5% in Water 1,000 ML IV PRN (18:21)
[2018-07-05] MEDS ORDERED: HumaLOG 300 UNITS/3 ML VIAL SC PRN ×2 (18:21)
[2018-07-05 20:05] VITALS: BP 115/76; TEMP 98.3
[2018-07-05] MEDS ORDERED: traMADol HCl 50 MG TAB PO PRN ×2 (21:15)
--- NOTE | 2018-07-07 10:53 | EKG ---
Test Reason : Blood Pressure : / mmHG Vent. Rate : 081 BPM Atrial Rate : 081 BPM P-R Int : 124 ms QRS Dur : 096 ms QT Int : 382 ms P-R-T Axes : 064 062 031 degrees QTc Int : 443 ms Normal sinus rhythm Possible Left atrial enlargement Nonspecific T wave abnormality Abnormal ECG Confirmed by JESS CHRISTIE, JAKI ([id number]), mapping editor GONZALEZ MARMOLEJO ([id number]) on 07/07/2018 10:53:06 AM Referred By: Confirmed By:JAKI MERCADO MD
== END 2018-07-05 22:07 | disposition left against medical advice (07) | DRG 638 ==
LOC: ERS 20:08 → IMCU/EMU 07-05 00:10
PROVIDERS: ADMIT Internal Medicine; ATTEND Internal Medicine
DX: E10.65 Type 1 diabetes mellitus with hyperglycemia (principal); E44.0 Moderate protein-calorie malnutrition; K86.1 Other chronic pancreatitis; N39.0 Urinary tract infection, site not specified; E10.43 Type 1 diabetes mellitus with diabetic autonomic (poly)neuropathy; K31.84 Gastroparesis; E78.5 Hyperlipidemia, unspecified; Z79.4 Long term (current) use of insulin; F41.9 Anxiety disorder, unspecified; F32.9 Major depressive disorder, single episode, unspecified; E86.0 Dehydration
CPT/HCPCS: 36415; 36416; 80053; 81003; 81015; 82010; 82330; 82553; 82803; 83690; 83735; 83930; 84100; 84484; 84703; 85025; 85027; 87040; 87077; 87086; 87186; 93005; A4216; J1200; J1815; J1956; J2270; J2550; J7050

== ENCOUNTER 2020-08-07 13:24 | Inpatient (IN) | payer MEDICARE, SELFPAY ==
[2020-08-07] MEDS ORDERED: EPHEDRINE 25 MG/5 ML SYRINGE ONE (13:32)
[2020-08-07] MEDS ORDERED: diphenhydrAMINE 50 MG/ML VIAL ONE ×2 (13:32→18:40)
[2020-08-07] MEDS ORDERED: Rocuronium Bromide 10 MG/ML (10ML VIAL) ONE (13:32)
[2020-08-07] MEDS ORDERED: Fentanyl 100 MCG/2 ML VIAL ONE ×4 (14:23→18:29)
[2020-08-07] MEDS ORDERED: Midazolam HCl 2 mg/2 ml Vial ONE ×2 (15:15→16:38)
[2020-08-07] MEDS ORDERED: Ketamine 50 MG/ML (10ML VIAL) ONE (15:20)
[2020-08-07] MEDS ORDERED: Sodium Chloride 0.9% 30 ML ONE (15:32)
[2020-08-07] MEDS ORDERED: Bupivacaine PF 0.5% 30 ML VIAL ONE (15:32)
[2020-08-07] MEDS ORDERED: Bacitracin Zinc Ointment 30 gm TUBE ONE (15:32)
[2020-08-07] MEDS ORDERED: Promethazine HCl 25 MG/ML VIAL ONE (16:49)
[2020-08-07] MEDS ORDERED: SUGAMMADEX SODIUM 200 MG/2 ML VIAL ONE (17:07)
[2020-08-07] MEDS ORDERED: HYDROmorphone 2 MG/ML VIAL SLOW IVP PRN (17:41)
[2020-08-07] MEDS ORDERED: Ondansetron HCl/PF 4 MG/2 ML Vial IVP PRN (17:41)
[2020-08-07] MEDS ORDERED: Fentanyl 100 MCG/2 ML VIAL SLOW IVP PRN (18:03)
[2020-08-07] MEDS ORDERED: Ondansetron PF 4 MG/2 ML Vial SLOW IVP PRN (18:03)
[2020-08-07] MEDS ORDERED: Acetaminophen 325 MG TAB PO PRN (18:03)
[2020-08-07] MEDS ORDERED: HYDROcodone/Acetaminophen 5/325 mg Tablet PO PRN (18:03)
[2020-08-07] MEDS ORDERED: Communication Order-Pharmacy FS SCH (18:15)
[2020-08-07] MEDS ORDERED: HYDROcodone/Acetaminophen 10/325 mg Tablet ONE (18:46)
[2020-08-07 19:49] VITALS: BMI 20.7
[2020-08-07] MEDS ORDERED: FLUoxetine HCl 20 MG CAP PO SCH (20:15)
[2020-08-07] MEDS: FLUoxetine HCl 20 MG CAP PO SCH (20:23)
[2020-08-07] MEDS: Estradiol 1 MG TAB PO SCH (20:24)
[2020-08-07] MEDS: Aspirin 81 mg Enteric Coated Tablet PO SCH (20:24)
[2020-08-07] MEDS: Morphine 4 MG/ML VIAL SLOW IVP PRN ×2 (20:25→23:27)
[2020-08-07] MEDS: Insulin Glargine 40 UNITS in Pre-Filled Syringe 1 EACH SC SCH (20:40)
[2020-08-07] MEDS: Sodium Chloride 0.9% 1,000 ML IV SCH (21:10)
[2020-08-07] MEDS: Sodium Chloride 0.9% 100 ML IV SCH ×2 (22:18→22:19)
[2020-08-07] MEDS: Meperidine HCl/PF 25 MG/ML VIAL IM PRN (22:23)
--- NOTE | 2020-08-07 22:24 | OP ---
DATE OF PROCEDURE: 08/07/2020 PREOPERATIVE DIAGNOSES: 1. Right forearm 1 cm dog bite wound. 2. Right index finger dorsal metacarpophalangeal joint dog bite wound and then right index finger volar dog bite wound, each one approximately 1 cm of active wound. PROCEDURES PERFORMED: 1. Arthrotomy, right index finger MP joint with findings of deep to the extensor tendon puncture wound with no hole in bone but hematoma veronika and intra-articular. 2. Flexor sheath debridement with tenosynovectomy, right ring finger FDS and FDP from volar approach. 3. Forearm wound debridement, right. SPECIMENS SENT: 1. Tissue from the flexor sheath tenosynovectomy. 2. Cultures from the MP joint arthrotomy. 3. Cultures from the flexor side wound alone. TOURNIQUET TIME: Sixty minutes. BLOOD LOSS: 50 cc. INJECTABLE: A total of 25 cc of 0.5% Marcaine divided 10 at each of the two finger wounds and 5 at the forearm wound. INDICATIONS: Patient sustained a dog bite wound approximately 48 hours prior to evaluation. She reported to emergency room one day prior to this evaluation by surgeon, then reported to a local urgent care center which referred her to us because of worry about this patient who has marked diabetes having an abscess. DESCRIPTION OF PROCEDURE: After successful general endotracheal anesthesia, the limb was prepped and draped. Time-out was done appropriately. We identified the wounds and then gave 5 cc of 0.5% Marcaine block at the 1 cm forearm wound which neurovascular or joint or tendon structures and 10 cc at each of the palmar and dorsal index finger wounds. We first approached the palmar wound after exsanguinated the limb, inflated the tourniquet and obtained a time-out with the tourniquet at 250 mmHg pressure. Here, we extended the incision 1 cm distal and proximal forearm wound and dissected deep where we found no infection or hematoma. We debrided a small amount of tissue subcutaneously, irrigated this with 500 mL of normal saline and packed it. We then approached the forearm wound which also extended while 15 mm distal and 10 mm proximal along the flexion creases to perform a Natalia-type incision, carried through skin and subcutaneous tissue. There was some hematoma and a small amount of debris subcutaneous. There was no violation of the flexor sheath, but there was hematoma around before and it was starting to swell, so we lifted it up, there was no purulence escaped, but we performed a radical flexor tenosynovectomy, sent this for culture tissue and we sent culture of the wound itself with a swab. We turned our attention to the dorsal wound. Here with some fluctuance we felt like, so we extended the 1 cm transverse wound obliquely 15 mm distal and 1 cm proximal to expose the underlying tissue. On dissection, we saw a small wound in the juncture of the extensor tendon at this index finger, lifted up the tendon and saw what appeared to be flexed to the joint. We opened and there was hematoma which escaped, so we then drained this, took specimens, and then sent the swab to the lab. We irrigated these two wounds with a combination of normal saline with Pulsavac, a total of 2000 over the joint and 1000 in the volar wound. I released the tourniquet, obtained hemostasis, and packed each wound with normal saline soaked gauze, dry 4x4s, and then a bulky hand dressing, Michael wrap only. She left the operating room without evidence of anesthetic or operative complication. Job ID: [id number]
[2020-08-07] MEDS: Clindamycin/D5W 600 MG in Premix Bag 1 BAG IVPB SCH (22:26)
[2020-08-08] MEDS: HYDROcodone/Acetaminophen 10/325 mg Tablet PO PRN ×4 (00:55→22:26)
[2020-08-08] MEDS: Morphine 4 MG/ML VIAL SLOW IVP PRN ×7 (03:51→21:16)
[2020-08-08] MEDS: Sodium Chloride 0.9% 1,000 ML IV SCH ×2 (05:09→17:19)
[2020-08-08] MEDS: Clindamycin/D5W 600 MG in Premix Bag 1 BAG IVPB SCH ×3 (05:09→22:26)
[2020-08-08 05:10] LABS: #Basophils 0.1 thou/uL (0.0-0.2); #Eosinphils 0.1 thou/uL (0.0-0.7); #Lymphocytes 3.2 thou/uL (1.20-3.40); #Monocytes 0.7 thou/uL (0.11-0.59); #Neutrophils 6.1 thou/uL (1.40-6.50); %Basophils 0.9 % (0.0-1.0); %Eosinophils 0.7 % (0.0-10.0); %Lymphocytes 31.3 % (21.0-51.0); %Monocytes 6.6 % (0.0-10.0); %Neutrophils 60.5 % (42.0-75.0); Hemoglobin 11.4 g/dL (12.0-16.0); Mean Corpuscular HGB CONC 32.6 g/dL (32.0-36.0); Mean Corpuscular Hemoglobin 29.3 pg (27.0-31.0); Mean Corpuscular Volume 89.9 fL (78.0-98.0); Mean Platelet Volume 9.4 fL (7.4-10.4); Platelet Count 356 thou/uL (130-400); RBC Distribution Width 13.5 % (11.5-14.5); Red Blood Cell (RBC) Count 3.91 mill/uL (4.20-5.40); White Blood Cell (WBC) Count 10.1 thou/uL (4.8-10.8)
[2020-08-08 05:13] LABS: PTT 27.5 sec (22.9-36.1); Prothrombin Time 13.5 sec (12.0-14.7)
[2020-08-08 05:41] LABS: ALT (SGPT) 22 U/L (8-55); AST (SGOT) 21 U/L (5-34); Albumin 3.3 g/dL (3.5-5.0); Alkaline Phosphatase 70 U/L (40-110); Anion Gap 10 mmol/L (10-20); BUN (Urea Nitrogen) 8 mg/dL (7.0-18.7); Bilirubin, Total 0.2 mg/dL (0.2-1.2); Calc. Creatinine Clearance 110 mL/min (70-130); Calcium 8.3 mg/dL (7.8-10.44); Carbon Dioxide 24 mmol/L (22-29); Chloride 107 mmol/L (98-107); Estimated GFR-MDRD Greater than 90; Globulin 2.9 g/dL (2.4-3.5); Glucose 126 mg/dL (70-105); Potassium 3.8 mmol/L (3.5-5.1); Protein, Total 6.2 g/dL (6.0-8.3); Sodium 137 mmol/L (136-145)
[2020-08-08] MEDS: Estradiol 1 MG TAB PO SCH ×2 (09:07→21:17)
[2020-08-08] MEDS: Aspirin 81 mg Enteric Coated Tablet PO SCH ×2 (09:07→21:18)
[2020-08-08] MEDS ORDERED: Dextrose 50% Abboject 50 ML SYRINGE SLOW IVP PRN (12:21)
[2020-08-08] MEDS ORDERED: Dextrose 5% in Water 1,000 ML IV PRN (12:21)
--- NOTE | 2020-08-08 16:47 | PDOC.HOSPP ---
- Subjective Encounter Date: 08/08/20 Encounter Time: 14:30 Subjective: Consultation note 39-year-old female with diabetes mellitus type 1 is currently admitted on right hand infection. Underwent surgical intervention yesterday. Hospitalist team was consulted for medical management. At this time patient denies any nausea, vomiting, fever, cough, shortness of breath or focal neurologic deficits. Still has moderate amount of pain and the right upper extremity. PAST MEDICAL HISTORY: Diabetes mellitus type 1 with multiple admissions for DKA, chronic pancreatitis PAST SURGICAL HISTORY: Pancreatic surgery, cholecystectomy, splenectomy, appendectomy, Mediport placement ALLERGIES: Several antibiotics including vancomycin and Keflex. Patient is also allergic to iodine and codeine. She cannot tolerate Zofran and Reglan SOCIAL HISTORY: Lives at home with her . Denies any tobacco or alcohol use FAMILY HISTORY: No premature coronary artery disease in her family - Objective Vital Signs & Weight: Vital Signs (12 hours) Temp Pulse Resp BP Pulse Ox 08/08/20 15:52 98.8 F 68 16 115/75 98 08/08/20 10:21 98.5 F 70 16 117/79 98 08/08/20 07:49 97.5 F L 85 16 106/69 98 Weight Admit Weight 113 lb Weight 113 lb 8 oz I&O: 08/07/20 08/08/20 08/09/20 06:59 06:59 06:59 Intake Total 600 Balance 600 Result Diagrams: 08/08/20 04:43 08/08/20 04:43 Additional Labs: Accuchecks 08/08/20 08/08/20 08/08/20 16:00 10:48 05:19 POC Glucose 447 H 192 H 112 H Radiology Reviewed by me: Yes (Right hand x-raysoft tissue swelling) Hospitalist ROS - Review of Systems Respiratory: denies: cough, dry, shortness of breath, hemoptysis, SOB with excertion, pleuritic pain, sputum, wheezing, other Cardiovascular: denies: chest pain, palpitations, orthopnea, paroxysmal noc. dyspnea, edema, light headedness, other All other systems reviewed; all pertinent +/- noted in HPI/Subj - Medication Medications: Home medications reviewed. Patient is on Lantus along with Prozac and estradiol. Active Medications Generic Name Dose Route Start Last Admin Trade Name Freq PRN Reason Stop Dose Admin Hydrocodone Bitart/Acetaminophen 2 tab 08/07/20 18:03 08/08/20 10:44 Hydrocodone/Acetaminophen 10/325 Mg Tablet PO 2 tab Q4H PRN Administration Severe Pain (7-10) Hydrocodone Bitart/Acetaminophen 1 tab 08/07/20 18:03 08/08/20 05:08 Hydrocodone/Acetaminophen 5/325 Mg Tablet PO 1 tab Q4H PRN Administration Moderate Pain (4-6) Aspirin 81 mg 08/07/20 21:00 08/08/20 09:07 Aspirin 81 Mg Enteric Coated Tablet PO 81 mg BID GISSELLE Administration Estradiol 1 mg 08/07/20 21:00 08/08/20 09:07 Estradiol 1 Mg Tab PO 1 mg BID GISSELLE Administration Fluoxetine HCl 40 mg 08/07/20 21:00 08/07/20 20:23 Fluoxetine Hcl 20 Mg Cap PO 40 mg HS GISSELLE Administration Clindamycin Phosphate/Dextrose 50 mls @ 100 mls/hr 08/07/20 22:00 08/08/20 14:50 600 mg/ Device IVPB 50 mls Q8HR GISSELLE Administration Insulin Glargine 40 units/ 0.4 mls @ 0 mls/hr 08/07/20 21:00 08/07/20 20:40 Miscellaneous Medication SC Not Given HS GISSELLE Sodium Chloride 1,000 mls @ 100 mls/hr 08/07/20 21:15 08/08/20 05:09 Normal Saline 0.9% IV 1,000 mls .Q10H GISSELLE Administration Doxycycline Hyclate 100 mg/ 100 mls @ 100 mls/hr 08/08/20 21:00 08/08/20 10:43 Sodium Chloride IVPB 100 mls Q12HR GISSELLE Administration Meperidine HCl 25 mg 08/07/20 18:11 08/07/20 22:23 Meperidine Hcl/Pf 25 Mg/Ml Vial IM 25 mg Q6H PRN Administration .SEVERE PAIN Morphine Sulfate 4 mg 08/07/20 18:03 08/08/20 14:50 Morphine 4 Mg/Ml Vial SLOW IVP 4 mg Q2H PRN Administration Severe Pain (7-10) - Exam General - other findings: Patient in mild distress due to pain Eye: PERRL, anicteric sclera ENT: normocephalic atraumatic, no oropharyngeal lesions Neck: supple, no JVD Heart: RRR, no gallops, no rubs, normal peripheral pulses Respiratory: no wheezes, no rales, no ronchi, normal chest expansion Gastrointestinal: soft, non-tender, normal bowel sounds, no guarding, no rigidity Extremities: no edema Extremities - other findings: Dressings over the right hand Skin: normal turgor, no lesions Neurological: cranial nerve grossly intact, normal sensation to touch, no focal deficits Musculoskeletal: normal tone, no muscle wasting Psychiatric: normal affect, A&O x 3 Hosp A/P (1) DM type 1 (diabetes mellitus, type 1) Status: Chronic (2) H/O chronic pancreatitis Code(s): Z87.19 - PERSONAL HISTORY OF OTHER DISEASES OF THE DIGESTIVE SYSTEM Status: Chronic (3) Anxiety Code(s): F41.9 - ANXIETY DISORDER, UNSPECIFIED Status: Chronic (4) Chronic anemia Code(s): D64.9 - ANEMIA, UNSPECIFIED Status: Chronic - Plan old records reviewed/req Will continue Lantus at 40 units nightly. Will add moderate sliding scale with Accu-Cheks before meals at bedtime. Check labs in a.m. Continue diabetic diet. Patient was counseled on diabetes. Patient is currently on morphine for pain control. She is also on clindamycin and doxycycline. We will continue Prozac. Patient denies any suicidal ideation. Thank you for this consultation. Will follow with you
[2020-08-08] MEDS: Insulin Regular 300 UNITS/3 ML VIAL SC PRN ×2 (17:13→21:19)
[2020-08-08] MEDS ORDERED: TETANUS AND DIPHTHERIA TOX/PF 0.5 ML DISP.SYRIN IM SCH (18:15)
[2020-08-08] MEDS: diphenhydrAMINE 25 MG CAP PO PRN ×2 (18:19→23:26)
[2020-08-08] MEDS: Insulin Glargine 40 UNITS in Pre-Filled Syringe 1 EACH SC SCH (21:18)
[2020-08-08] MEDS: FLUoxetine HCl 20 MG CAP PO SCH (21:18)
[2020-08-08] MEDS: Meperidine HCl/PF 25 MG/ML VIAL IM PRN (23:06)
[2020-08-09] MEDS: Sodium Chloride 0.9% 1,000 ML IV SCH ×3 (03:35→22:42)
[2020-08-09] MEDS: Morphine 4 MG/ML VIAL SLOW IVP PRN ×6 (03:36→22:08)
[2020-08-09] MEDS: Insulin Regular 300 UNITS/3 ML VIAL SC PRN ×4 (05:01→22:01)
[2020-08-09] MEDS: HYDROcodone/Acetaminophen 10/325 mg Tablet PO PRN ×2 (05:02→16:05)
[2020-08-09] MEDS: Clindamycin/D5W 600 MG in Premix Bag 1 BAG IVPB SCH ×3 (05:03→22:01)
[2020-08-09 05:32] LABS: Anion Gap 11 mmol/L (10-20); BUN (Urea Nitrogen) 6 mg/dL (7.0-18.7); Calc. Creatinine Clearance 93 mL/min (70-130); Calcium 8.6 mg/dL (7.8-10.44); Carbon Dioxide 27 mmol/L (22-29); Chloride 101 mmol/L (98-107); Estimated GFR-MDRD Greater than 90; Glucose 302 mg/dL (70-105); Magnesium 1.3 mg/dL (1.6-2.6); Phosphorus 3.4 mg/dL (2.3-4.7); Potassium 4.2 mmol/L (3.5-5.1); Sodium 135 mmol/L (136-145)
[2020-08-09] MEDS: Estradiol 1 MG TAB PO SCH ×2 (09:36→20:10)
[2020-08-09] MEDS: Aspirin 81 mg Enteric Coated Tablet PO SCH ×2 (09:36→20:10)
[2020-08-09] MEDS: Saccharomyces boulardii 250 MG CAP PO SCH (09:36)
[2020-08-09] MEDS ORDERED: Magnesium Sulfate 4 GM in Sodium Chloride 0.9% 250 ML 250 ML IVPB SCH (09:45)
--- NOTE | 2020-08-09 12:21 | PDOC.HOSPP ---
- Subjective Encounter Date: 08/09/20 Encounter Time: 10:00 Subjective: Patient seen and examined for medical mngt. Mild nausea. No new complaints. No overnight events - Objective Vital Signs & Weight: Vital Signs (12 hours) Temp Pulse Resp BP Pulse Ox 08/09/20 10:53 98.9 F 89 16 99/67 99 08/09/20 07:12 98.9 F 94 16 99/68 97 08/09/20 03:28 97.9 F 97 16 119/74 98 08/09/20 00:37 97 Weight Admit Weight 113 lb Weight 113 lb 8 oz I&O: 08/08/20 08/09/20 08/10/20 06:59 06:59 06:59 Intake Total 600 3082 Balance 600 3082 Result Diagrams: 08/08/20 04:43 08/09/20 04:51 Additional Labs: Accuchecks 08/09/20 08/09/20 08/08/20 11:01 04:58 19:33 POC Glucose 188 H 312 H 204 H 08/08/20 16:00 POC Glucose 447 H Hospitalist ROS - Review of Systems Respiratory: denies: cough, dry, shortness of breath, hemoptysis, SOB with excertion, pleuritic pain, sputum, wheezing, other Cardiovascular: denies: chest pain, palpitations, orthopnea, paroxysmal noc. dyspnea, edema, light headedness, other - Medication Medications: Active Medications Generic Name Dose Route Start Last Admin Trade Name Freq PRN Reason Stop Dose Admin Hydrocodone Bitart/Acetaminophen 2 tab 08/07/20 18:03 08/09/20 05:02 Hydrocodone/Acetaminophen 10/325 Mg Tablet PO 2 tab Q4H PRN Administration Severe Pain (7-10) Hydrocodone Bitart/Acetaminophen 1 tab 08/07/20 18:03 08/08/20 05:08 Hydrocodone/Acetaminophen 5/325 Mg Tablet PO 1 tab Q4H PRN Administration Moderate Pain (4-6) Aspirin 81 mg 08/07/20 21:00 08/09/20 09:36 Aspirin 81 Mg Enteric Coated Tablet PO 81 mg BID GISSELLE Administration Diphenhydramine HCl 25 mg 08/08/20 17:48 08/08/20 23:26 Diphenhydramine 25 Mg Cap PO 25 mg Q6H PRN Administration Itching & Insomnia Estradiol 1 mg 08/07/20 21:00 08/09/20 09:36 Estradiol 1 Mg Tab PO 1 mg BID GISSELLE Administration Fluoxetine HCl 40 mg 08/07/20 21:00 08/08/20 21:18 Fluoxetine Hcl 20 Mg Cap PO 40 mg HS GISSELLE Administration Clindamycin Phosphate/Dextrose 50 mls @ 100 mls/hr 08/07/20 22:00 08/09/20 05:03 600 mg/ Device IVPB 50 mls Q8HR GISSELLE Administration Insulin Glargine 40 units/ 0.4 mls @ 0 mls/hr 08/07/20 21:00 08/08/20 21:18 Miscellaneous Medication SC Not Given HS GISSELLE Sodium Chloride 1,000 mls @ 100 mls/hr 08/07/20 21:15 08/09/20 03:35 Normal Saline 0.9% IV Not Given .Q10H GISSELLE Doxycycline Hyclate 100 mg/ 100 mls @ 100 mls/hr 08/08/20 21:00 08/09/20 09:36 Sodium Chloride IVPB 100 mls Q12HR GISSELLE Administration Magnesium Sulfate 4 gm/ Sodium 258 mls @ 86 mls/hr 08/09/20 09:45 08/09/20 11:36 Chloride IVPB 08/09/20 13:00 258 mls NOW GISSELLE Administration Insulin Human Regular 0 units 08/08/20 12:21 08/08/20 21:19 Insulin Regular 300 Units/3 Ml Vial SC 2 unit .BEDTIME SLIDING SC PRN Administration Bedtime Correctional Scale Insulin Human Regular 0 units 08/09/20 10:00 08/09/20 11:43 Insulin Regular 300 Units/3 Ml Vial SC 3 unit .AGGRESSIVE SLIDING PRN Administration Aggressive Correctional Scale Meperidine HCl 25 mg 08/07/20 18:11 08/08/20 23:06 Meperidine Hcl/Pf 25 Mg/Ml Vial IM 25 mg Q6H PRN Administration .SEVERE PAIN Morphine Sulfate 4 mg 08/07/20 18:03 08/09/20 11:35 Morphine 4 Mg/Ml Vial SLOW IVP 4 mg Q2H PRN Administration Severe Pain (7-10) Saccharomyces Boulardii 250 mg 08/09/20 09:00 08/09/20 09:36 Saccharomyces Boulardii 250 Mg Cap PO 250 mg DAILY GISSELLE Administration - Exam General Appearance: NAD Neck: supple, no JVD Heart: RRR, no gallops Respiratory: no wheezes, no ronchi Gastrointestinal: soft, non-distended Extremities: no cyanosis Neurological: no new deficit Hosp A/P (1) DM type 1 (diabetes mellitus, type 1) Status: Chronic (2) H/O chronic pancreatitis Code(s): Z87.19 - PERSONAL HISTORY OF OTHER DISEASES OF THE DIGESTIVE SYSTEM Status: Chronic (3) Anxiety Code(s): F41.9 - ANXIETY DISORDER, UNSPECIFIED Status: Chronic (4) Chronic anemia Code(s): D64.9 - ANEMIA, UNSPECIFIED Status: Chronic - Plan DVT proph w/SCDs 08/09 Cont Lantus 40 units daily. Change aggressive sliding scale. Cont current IV Atbx. Cont Prozac. Cont diabetic diet. Counselled to be compliant with diabetic diet. 08/08 Will continue Lantus at 40 units nightly. Will add moderate sliding scale with Accu-Cheks before meals at bedtime. Check labs in a.m. Continue diabetic diet. Patient was counseled on diabetes. Patient is currently on morphine for pain control. She is also on clindamycin and doxycycline. We will continue Prozac. Patient denies any suicidal ideation. Thank you for this consultation. Will follow with you.
[2020-08-09] MEDS: FLUoxetine HCl 20 MG CAP PO SCH (20:10)
[2020-08-09] MEDS: Insulin Glargine 40 UNITS in Pre-Filled Syringe 1 EACH SC SCH (20:11)
[2020-08-10 00:09] LABS: Bacteria/HPF None Seen HPF (None Seen); Bilirubin Negative (Negative); Blood, Urine Negative (Negative); Clarity Clear (Clear); Glucose, Urine (Dipstick) 70 mg/dL (Negative); Ketone, Urine Negative (Negative); Leukocyte Negative Leu/uL (Negative); Nitrite Negative (Negative); Protein, Urine (Dipstick) Negative (Neg-Trace); RBC/HPF 0-3 HPF (0-3); Specific Gravity, Urine 1.007 (1.002-1.036); Squamous Epithelial 0-3 HPF (0-3); Urobilinogen Normal mg/dL (Less than 2); WBC/HPF 0-3 HPF (0-3); pH, Urine 6.5 (5.0-9.0)
[2020-08-10] MEDS: Morphine 4 MG/ML VIAL SLOW IVP PRN ×7 (03:06→23:57)
[2020-08-10] MEDS: Clindamycin/D5W 600 MG in Premix Bag 1 BAG IVPB SCH ×3 (05:57→21:31)
[2020-08-10] MEDS: Aspirin 81 mg Enteric Coated Tablet PO SCH ×2 (08:59→21:30)
[2020-08-10] MEDS: Saccharomyces boulardii 250 MG CAP PO SCH (08:59)
[2020-08-10] MEDS: Estradiol 1 MG TAB PO SCH ×2 (08:59→21:31)
[2020-08-10] MEDS ORDERED: diphenhydrAMINE 50 MG/ML VIAL ONE (09:38)
[2020-08-10] MEDS ORDERED: PHENYLEPHRINE-NS 100 MCG/ML 10 ML SYRINGE ONE (09:38)
[2020-08-10] MEDS: Sodium Chloride 0.9% 1,000 ML IV SCH ×2 (10:19→22:46)
[2020-08-10] MEDS ORDERED: PACU-Morphine 4MG/ML VIAL SLOW IVP PRN (16:15)
[2020-08-10] MEDS ORDERED: Meperidine HCl/PF 25 MG/ML VIAL SLOW IVP PRN (16:15)
[2020-08-10] MEDS ORDERED: Promethazine HCl 25 MG/ML VIAL SLOW IVP PRN (16:15)
[2020-08-10] MEDS ORDERED: Ondansetron HCl/PF 4 MG/2 ML Vial IVP PRN (16:15)
[2020-08-10] MEDS ORDERED: Promethazine HCl 25 MG/ML VIAL IM PRN (16:15)
[2020-08-10] MEDS ORDERED: Morphine 4 MG/ML VIAL ONE (16:21)
[2020-08-10] MEDS ORDERED: Bupivacaine PF 0.5% 30 ML VIAL ONE (16:26)
[2020-08-10] MEDS ORDERED: Bacitracin Zinc Ointment 30 gm TUBE ONE (16:27)
[2020-08-10] MEDS ORDERED: Sodium Chloride 0.9% 30 ML ONE (16:27)
[2020-08-10] MEDS ORDERED: Fentanyl 100 MCG/2 ML VIAL ONE (17:30)
--- NOTE | 2020-08-10 17:35 | PDOC.HOSPP ---
- Subjective Encounter Date: 08/10/20 Encounter Time: 09:30 Subjective: Patient seen and examined for medical management. Pain controlled. No fever, chills or chest pain. - Objective Vital Signs & Weight: Vital Signs (12 hours) Temp Pulse Resp BP Pulse Ox 08/10/20 15:35 98.3 F 86 18 107/73 100 08/10/20 11:30 98 F 96 18 116/84 95 08/10/20 07:14 98.1 F 89 16 118/81 95 Weight Admit Weight 113 lb Weight 113 lb 8 oz I&O: 08/09/20 08/10/20 08/11/20 06:59 06:59 06:59 Intake Total 3082 4413 Output Total 900 Balance 3082 1153 Result Diagrams: 08/08/20 04:43 08/09/20 04:51 Additional Labs: Accuchecks 08/10/20 08/10/20 08/09/20 15:38 11:34 21:30 POC Glucose 180 H 191 H 210 H 08/08/20 08/07/20 17:17 17:42 POC Glucose 445 H 132 H Hospitalist ROS - Review of Systems Respiratory: denies: cough, dry, shortness of breath, hemoptysis, SOB with excertion, pleuritic pain, sputum, wheezing, other Cardiovascular: denies: chest pain, palpitations, orthopnea, paroxysmal noc. dyspnea, edema, light headedness, other - Medication Medications: Active Medications Generic Name Dose Route Start Last Admin Trade Name Freq PRN Reason Stop Dose Admin Hydrocodone Bitart/Acetaminophen 2 tab 08/07/20 18:03 08/09/20 16:05 Hydrocodone/Acetaminophen 10/325 Mg Tablet PO 2 tab Q4H PRN Administration Severe Pain (7-10) Hydrocodone Bitart/Acetaminophen 1 tab 08/07/20 18:03 08/08/20 05:08 Hydrocodone/Acetaminophen 5/325 Mg Tablet PO 1 tab Q4H PRN Administration Moderate Pain (4-6) Aspirin 81 mg 08/07/20 21:00 08/10/20 08:59 Aspirin 81 Mg Enteric Coated Tablet PO Not Given BID GISSELLE Diphenhydramine HCl 25 mg 08/08/20 17:48 08/08/20 23:26 Diphenhydramine 25 Mg Cap PO 25 mg Q6H PRN Administration Itching & Insomnia Estradiol 1 mg 08/07/20 21:00 08/10/20 08:59 Estradiol 1 Mg Tab PO Not Given BID GISSELLE Fentanyl 50 mcg 08/07/20 18:03 08/09/20 14:58 Fentanyl 100 Mcg/2 Ml Vial SLOW IVP 50 mcg Q30M PRN Administration Severe breakthrough pain Fluoxetine HCl 40 mg 08/07/20 21:00 08/09/20 20:10 Fluoxetine Hcl 20 Mg Cap PO 40 mg HS GISSELLE Administration Clindamycin Phosphate/Dextrose 50 mls @ 100 mls/hr 08/07/20 22:00 08/10/20 13:35 600 mg/ Device IVPB 50 mls Q8HR GISSELLE Administration Insulin Glargine 40 units/ 0.4 mls @ 0 mls/hr 08/07/20 21:00 08/09/20 20:11 Miscellaneous Medication SC Not Given HS GISSELLE Sodium Chloride 1,000 mls @ 100 mls/hr 08/07/20 21:15 08/10/20 10:19 Normal Saline 0.9% IV Not Given .Q10H GISSELLE Doxycycline Hyclate 100 mg/ 100 mls @ 100 mls/hr 08/08/20 21:00 08/10/20 09:05 Sodium Chloride IVPB 100 mls Q12HR GISSELLE Administration Insulin Human Regular 0 units 08/08/20 12:21 08/09/20 22:01 Insulin Regular 300 Units/3 Ml Vial SC 2 unit .BEDTIME SLIDING SC PRN Administration Bedtime Correctional Scale Insulin Human Regular 0 units 08/09/20 10:00 08/09/20 16:07 Insulin Regular 300 Units/3 Ml Vial SC 6 unit .AGGRESSIVE SLIDING PRN Administration Aggressive Correctional Scale Meperidine HCl 25 mg 08/07/20 18:11 08/08/20 23:06 Meperidine Hcl/Pf 25 Mg/Ml Vial IM 25 mg Q6H PRN Administration .SEVERE PAIN Morphine Sulfate 4 mg 08/07/20 18:03 08/10/20 13:29 Morphine 4 Mg/Ml Vial SLOW IVP 4 mg Q2H PRN Administration Severe Pain (7-10) Saccharomyces Boulardii 250 mg 08/09/20 09:00 08/10/20 08:59 Saccharomyces Boulardii 250 Mg Cap PO Not Given DAILY GISSELLE - Exam General Appearance: NAD Neck: supple, no JVD Heart: RRR, no gallops Respiratory: no wheezes, no ronchi Gastrointestinal: soft, non-tender, normal bowel sounds Extremities: no cyanosis Neurological: no new deficit Psychiatric: A&O x 3 Hosp A/P (1) DM type 1 (diabetes mellitus, type 1) Status: Chronic (2) H/O chronic pancreatitis Code(s): Z87.19 - PERSONAL HISTORY OF OTHER DISEASES OF THE DIGESTIVE SYSTEM Status: Chronic (3) Anxiety Code(s): F41.9 - ANXIETY DISORDER, UNSPECIFIED Status: Chronic (4) Chronic anemia Code(s): D64.9 - ANEMIA, UNSPECIFIED Status: Chronic - Plan 08/10 Continue Lantus 40 units daily with aggressive sliding scale. Continue blood sugar checks before meals and at bedtime. Patient is currently n.p.o. for procedure. Continue IV antibiotics as above. 08/09 Cont Lantus 40 units daily. Change aggressive sliding scale. Cont current IV Atbx. Cont Prozac. Cont diabetic diet. Counselled to be compliant with diabetic diet. 08/08 Will continue Lantus at 40 units nightly. Will add moderate sliding scale with Accu-Cheks before meals at bedtime. Check labs in a.m. Continue diabetic diet. Patient was counseled on diabetes. Patient is currently on morphine for pain control. She is also on clindamycin and doxycycline. We will continue Prozac. Patient denies any suicidal ideation. Thank you for this consultation. Will follow with you.
[2020-08-10] MEDS ORDERED: Fentanyl 250 MCG/5 ML VIAL ONE (18:09)
[2020-08-10] MEDS ORDERED: Ketamine 50 MG/ML (10ML VIAL) ONE (18:10)
[2020-08-10] MEDS ORDERED: Midazolam HCl 2 mg/2 ml Vial ONE (18:21)
[2020-08-10] MEDS ORDERED: Promethazine HCl 25 MG/ML VIAL ONE (19:13)
[2020-08-10] MEDS: FLUoxetine HCl 20 MG CAP PO SCH (21:31)
[2020-08-10] MEDS: HYDROcodone/Acetaminophen 10/325 mg Tablet PO PRN (22:57)
[2020-08-10] MEDS: Insulin Glargine 40 UNITS in Pre-Filled Syringe 1 EACH SC SCH (23:37)
[2020-08-11] MEDS: Morphine 4 MG/ML VIAL SLOW IVP PRN ×6 (02:13→15:45)
[2020-08-11] MEDS: HYDROcodone/Acetaminophen 10/325 mg Tablet PO PRN (03:13)
[2020-08-11] MEDS: Sodium Chloride 0.9% 1,000 ML IV SCH ×2 (05:58→15:50)
[2020-08-11] MEDS: Clindamycin/D5W 600 MG in Premix Bag 1 BAG IVPB SCH ×2 (06:12→12:49)
[2020-08-11] MEDS: diphenhydrAMINE 25 MG CAP PO PRN ×2 (06:37→15:45)
[2020-08-11] MEDS: Insulin Regular 300 UNITS/3 ML VIAL SC PRN ×2 (06:37→12:49)
[2020-08-11] MEDS: Aspirin 81 mg Enteric Coated Tablet PO SCH (08:18)
[2020-08-11] MEDS: Saccharomyces boulardii 250 MG CAP PO SCH (08:18)
[2020-08-11] MEDS: Estradiol 1 MG TAB PO SCH (08:18)
[2020-08-11] MEDS ORDERED: Insulin Glargine 15 UNITS in Pre-Filled Syringe 1 EACH SC SCH (08:30)
[2020-08-11 15:38] VITALS: BP 129/81; TEMP 98.3
--- NOTE | 2020-08-11 15:46 | OP ---
DATE OF PROCEDURE: 08/10/2020 PREOPERATIVE DIAGNOSES: 1. Right ring finger open wound 5 cm at the joint, dorsal. 2. Right palmar hand 5 cm wound in line with the index finger ray, and right forearm, 1.0 cm wound proximal mid third junction. FINDINGS: No gross infection, drainage, exudate, or hematoma at any site. This includes the tendon sheath area and at the index finger, palmar hand and the ring finger MP joint and wound. Pulsavac was used 3 L with 1 L among each wound. PROCEDURE PERFORMED: 1. At the right ring finger. a. 5 cm wound closure, multiple layers. b. Right ring finger 5 cm wound debridement, [id number] depth. 2. Right palmar index finger 5 cm wound. a. Right palmar index finger wound, depth [id number]. b. Right palmar wound 5 cm wound closure, multiple layers. 3. Right forearm 1.0 cm wound. a. Debridement of wound. b. Closure of wound multiple layers 1 cm. ESTIMATED BLOOD LOSS: 10 mL. TOURNIQUET TIME: Seven minutes. DESCRIPTION OF PROCEDURE: After successful general endotracheal anesthesia, the limb was prepped and draped. Time-out was done appropriately. The patient had 30 mL of 0.5% Marcaine, 5 mL in proximal wound and 12 to 12.5 mL at the two distal wounds. After successful anesthesia, the limb was prepped and draped. We then gave the injections listed above. The limb was exsanguinated, tourniquet inflated to 250 mmHg pressure after time-out was done appropriately. We then did soft dissection, removed the granulation tissue from each wound, first with the most proximal wound. It was here that we saw of closure. Patient had the evaluation of the ring finger intraarticular wound, lifted up the extensor mechanism and did not enter the retinaculum, irrigated the joint with 250 mL of normal saline, antibiotics inside using bulb syringe and Angiocath, then 1 L Pulsavac. We debrided the edges using tenotomy scissors, curette, Adson's, as well as the Pulsavac. The same technique was then used for the index finger palmar wound including the fact that we irrigated proximal to the tendon sheath underneath the skin, saw no infection, abscess, or abnormality. Job ID: [id number]
[2020-08-11] MEDS ORDERED: Morphine 4 MG/ML VIAL SLOW IVP SCH (17:15)
--- NOTE | 2020-08-11 22:13 | PDOC.HOSPP ---
- Subjective Encounter Date: 08/11/20 Encounter Time: 10:30 Subjective: Patient seen and examined for medical management. Denies any fever, chills, diaphoresis or nausea. - Objective Vital Signs & Weight: Vital Signs (12 hours) Temp Pulse Resp BP Pulse Ox 08/11/20 15:11 98.3 F 83 18 129/81 99 Weight Admit Weight 113 lb Weight 113 lb 8 oz I&O: 08/10/20 08/11/20 08/12/20 06:59 06:59 06:59 Intake Total 4413 Output Total 900 Balance 3513 Result Diagrams: 08/08/20 04:43 08/09/20 04:51 Additional Labs: Accuchecks 08/11/20 08/11/20 11:20 06:16 POC Glucose 203 H 294 H Hospitalist ROS - Review of Systems Respiratory: denies: cough, dry, shortness of breath, hemoptysis, SOB with excertion, pleuritic pain, sputum, wheezing, other Cardiovascular: denies: chest pain, palpitations, orthopnea, paroxysmal noc. dyspnea, edema, light headedness, other - Exam General Appearance: NAD Heart: RRR, no gallops Respiratory: no wheezes, no ronchi Gastrointestinal: non-tender, normal bowel sounds Extremities: no cyanosis Extremities - other findings: Right forearm dressing Hosp A/P (1) DM type 1 (diabetes mellitus, type 1) Status: Chronic (2) H/O chronic pancreatitis Code(s): Z87.19 - PERSONAL HISTORY OF OTHER DISEASES OF THE DIGESTIVE SYSTEM S tatus: Chronic (3) Anxiety Code(s): F41.9 - ANXIETY DISORDER, UNSPECIFIED Status: Chronic (4) Chronic anemia Code(s): D64.9 - ANEMIA, UNSPECIFIED Status: Chronic - Plan DVT proph w/SCDs 08/11 Extract 15 units of Lantus today. Continue 40 units of Lantus qhs. IV morphine for pain control. Antibiotics per surgery. Continue sliding scale. Patient was counseled on home blood glucose monitoring for optimal wound healing. Patient stated understanding. 08/10 Continue Lantus 40 units daily with aggressive sliding scale. Continue blood sugar checks before meals and at bedtime. Patient is currently n.p.o. for procedure. Continue IV antibiotics as above. 08/09 Cont Lantus 40 units daily. Change aggressive sliding scale. Cont current IV Atbx. Cont Prozac. Cont diabetic diet. Counselled to be compliant with diabetic diet. 08/08 Will continue Lantus at 40 units nightly. Will add moderate sliding scale with Accu-Cheks before meals at bedtime. Check labs in a.m. Continue diabetic diet. Patient was counseled on diabetes. Patient is currently on morphine for pain control. She is also on clindamycin and doxycycline. We will continue Prozac. Patient denies any suicidal ideation. Thank you for this consultation. Will follow with you.
== END 2020-08-11 18:51 | disposition home or self-care (01) | DRG 580 ==
LOC: SDC 13:24 → SURG A 18:03
PROVIDERS: ADMIT Orthopaedic Surgery Hand Surgery; ATTEND Orthopaedic Surgery Hand Surgery
PROC: 0RQV0ZZ Repair Left Metacarpophalangeal Joint, Open Approach (ICD-10-PCS; principal; 2020-08-07)
PROC: 0JBJ0ZZ Excision of Right Hand Subcutaneous Tissue and Fascia, Open Approach (ICD-10-PCS; 2020-08-07)
PROC: 0LB70ZZ Excision of Right Hand Tendon, Open Approach (ICD-10-PCS; 2020-08-07)
PROC: 0JCG0ZZ Extirpation of Matter from Right Lower Arm Subcutaneous Tissue and Fascia, Open Approach (ICD-10-PCS; 2020-08-07)
PROC: 0HDFXZZ Extraction of Right Hand Skin, External Approach (ICD-10-PCS; 2020-08-10)
PROC: 0HDDXZZ Extraction of Right Lower Arm Skin, External Approach (ICD-10-PCS; 2020-08-10)
DX: S61.250A Open bite of right index finger without damage to nail, initial encounter (principal); K86.1 Other chronic pancreatitis; E10.9 Type 1 diabetes mellitus without complications; F41.9 Anxiety disorder, unspecified; D64.9 Anemia, unspecified; S60.571A Other superficial bite of hand of right hand, initial encounter; S50.871A Other superficial bite of right forearm, initial encounter; Z90.49 Acquired absence of other specified parts of digestive tract; W54.0XXA Bitten by dog, initial encounter; Z88.1 Allergy status to other antibiotic agents; Z88.8 Allergy status to other drugs, medicaments and biological substances; Z88.6 Allergy status to analgesic agent; Z79.4 Long term (current) use of insulin; Z90.710 Acquired absence of both cervix and uterus
CPT/HCPCS: 36415; 36416; 80048; 80053; 81001; 83735; 84100; 85025; 85610; 85730; 87070; 87205; J1200; J1815; J2175; J2250; J2270; J2550; J3010; J3475; J3490; J7050; Q0163; S0020

== ENCOUNTER 2022-04-29 19:27 | Inpatient (IN) | payer MEDICARE, MEDICAID ==
[2022-04-29] MEDS ORDERED: Scopolamine 1.5 mg/72 hour Patch TOP SCH (23:30)
[2022-04-30 00:17] VITALS: BMI 18.3
[2022-04-30] MEDS ORDERED: Dextrose 5% in Water 1,000 ML IV PRN ×2 (00:20→16:09)
[2022-04-30] MEDS ORDERED: Dextrose 50% Abboject 50 ML SYRINGE SLOW IVP PRN ×2 (00:20→16:09)
[2022-04-30] MEDS: diphenhydrAMINE 50 MG/ML VIAL IVP PRN ×5 (00:24→23:34)
[2022-04-30] MEDS: Morphine 2 MG/ML VIAL SLOW IVP PRN ×7 (00:25→23:34)
[2022-04-30] MEDS: Dextrose 5 %-0.45 % NaCl 1,000 ML IV SCH ×2 (00:27→11:58)
[2022-04-30] MEDS ORDERED: Nitroglycerin 0.4 MG TAB (25 Tab Bottle) SL PRN (00:56)
[2022-04-30 01:24] LABS: Troponin I Less than 0.010 ng/mL (< 0.028)
[2022-04-30] MEDS: Promethazine HCl 12.5 MG in Sodium Chloride 0.9% 50 ML IVPB PRN ×3 (02:36→23:35)
[2022-04-30 05:59] LABS: #Basophils 0.1 thou/uL (0.0-0.2); #Eosinphils 0.1 thou/uL (0.0-0.7); #Monocytes 0.8 thou/uL (0.11-0.59); #Neutrophils 8.4 thou/uL (1.40-6.50); %Basophils 0.7 % (0.0-1.0); %Eosinophils 0.9 % (0.0-10.0); %Lymphocytes 34.8 % (21.0-51.0); %Monocytes 5.3 % (0.0-10.0); %Neutrophils 58.3 % (42.0-75.0); Hemoglobin 12.3 g/dL (12.0-16.0); Mean Corpuscular HGB CONC 32.2 g/dL (32.0-36.0); Mean Corpuscular Volume 93.3 fL (78.0-98.0); Platelet Count 246 thou/uL (130-400); Red Blood Cell (RBC) Count 4.11 mill/uL (4.20-5.40); White Blood Cell (WBC) Count 14.4 thou/uL (4.8-10.8)
[2022-04-30 06:40] LABS: Troponin I Less than 0.010 ng/mL (< 0.028)
[2022-04-30 06:42] LABS: ALT (SGPT) 40 U/L (8-55); AST (SGOT) 35 U/L (5-34); Albumin 3.4 g/dL (3.5-5.0); Alkaline Phosphatase 65 U/L (40-110); Anion Gap 9 mmol/L (10-20); BUN (Urea Nitrogen) 6 mg/dL (7.0-18.7); Bilirubin, Total 0.4 mg/dL (0.2-1.2); Calc. Creatinine Clearance 89 mL/min (70-130); Calcium 8.3 mg/dL (7.8-10.44); Carbon Dioxide 25 mmol/L (22-29); Chloride 106 mmol/L (98-107); Globulin 2.2 g/dL (2.4-3.5); Glucose 91 mg/dL (70-105); Potassium 3.6 mmol/L (3.5-5.1); Protein, Total 5.6 g/dL (6.0-8.3); Sodium 136 mmol/L (136-145)
[2022-04-30] MEDS ORDERED: Promethazine HCl 25 MG/ML VIAL ONE (09:07)
[2022-04-30] MEDS ORDERED: fentaNYL Citrate/PF 100 MCG/2 ML SYRINGE ONE (09:14)
[2022-04-30] MEDS ORDERED: Midazolam HCl 2 mg/2 ml Vial ONE ×2 (09:35→09:36)
[2022-04-30] MEDS ORDERED: Ketamine 50 MG/ML (10ML VIAL) ONE (09:37)
[2022-04-30] MEDS ORDERED: Succinylcholine 200 MG/10 ml SYRINGE FS ONE (09:50)
[2022-04-30] MEDS ORDERED: Promethazine HCl 25 MG/ML VIAL IVPB PRN (10:33)
[2022-04-30] MEDS ORDERED: Promethazine HCl 25 MG/ML VIAL IM PRN (10:33)
[2022-04-30] MEDS: Insulin Glargine 30 UNITS/0.3 ML VIAL SC SCH (12:02)
[2022-04-30] MEDS ORDERED: HumaLOG 300 UNITS/3 ML VIAL SC PRN ×2 (16:09)
[2022-04-30] MEDS ORDERED: PROTEASE PO SCH (21:00)
[2022-04-30] MEDS ORDERED: AMYLASE PO SCH (21:00)
[2022-04-30] MEDS ORDERED: LIPASE PO SCH (21:00)
[2022-05-01] MEDS: Dextrose 5 %-0.45 % NaCl 1,000 ML IV SCH ×2 (00:07→03:19)
[2022-05-01] MEDS: Morphine 2 MG/ML VIAL SLOW IVP PRN ×3 (03:19→11:04)
[2022-05-01 03:57] VITALS: BP 107/67; TEMP 97.8
[2022-05-01] MEDS: Promethazine HCl 12.5 MG in Sodium Chloride 0.9% 50 ML IVPB PRN (05:07)
[2022-05-01] MEDS: diphenhydrAMINE 50 MG/ML VIAL IVP PRN ×2 (05:07→11:03)
[2022-05-01 05:41] LABS: Hemoglobin A1c 8.3 % (4.0-6.0)
[2022-05-01 08:06] LABS: #Basophils 0.1 thou/uL (0.0-0.2); #Eosinphils 0.1 thou/uL (0.0-0.7); #Lymphocytes 3.2 thou/uL (1.20-3.40); #Monocytes 0.7 thou/uL (0.11-0.59); #Neutrophils 2.8 thou/uL (1.40-6.50); %Basophils 0.8 % (0.0-1.0); %Eosinophils 1.3 % (0.0-10.0); %Lymphocytes 46.7 % (21.0-51.0); %Monocytes 10.1 % (0.0-10.0); %Neutrophils 41.1 % (42.0-75.0); Hemoglobin 13.1 g/dL (12.0-16.0); Mean Corpuscular Hemoglobin 30.1 pg (27.0-31.0); Mean Corpuscular Volume 94.2 fL (78.0-98.0); Mean Platelet Volume 8.9 fL (7.4-10.4); Platelet Count 259 thou/uL (130-400); Red Blood Cell (RBC) Count 4.34 mill/uL (4.20-5.40); White Blood Cell (WBC) Count 6.9 thou/uL (4.8-10.8)
[2022-05-01] MEDS: Insulin Glargine 30 UNITS/0.3 ML VIAL SC SCH (09:55)
== END 2022-05-01 12:21 | disposition home or self-care (01) | DRG 392 ==
LOC: SJJU 22:40
PROVIDERS: ADMIT Internal Medicine; ATTEND Internal Medicine
PROC: 0DB68ZX Excision of Stomach, Via Natural or Artificial Opening Endoscopic, Diagnostic (ICD-10-PCS; principal; 2022-04-30)
DX: K29.70 Gastritis, unspecified, without bleeding (principal); K56.609 Unspecified intestinal obstruction, unspecified as to partial versus complete obstruction; K86.1 Other chronic pancreatitis; E44.0 Moderate protein-calorie malnutrition; R07.9 Chest pain, unspecified; E10.43 Type 1 diabetes mellitus with diabetic autonomic (poly)neuropathy; K25.9 Gastric ulcer, unspecified as acute or chronic, without hemorrhage or perforation; F41.9 Anxiety disorder, unspecified; F32.A Depression, unspecified; K31.84 Gastroparesis; E78.5 Hyperlipidemia, unspecified; Z79.4 Long term (current) use of insulin; Z90.410 Acquired total absence of pancreas; Z79.899 Other long term (current) drug therapy; Z88.5 Allergy status to narcotic agent; Z88.8 Allergy status to other drugs, medicaments and biological substances; Z88.1 Allergy status to other antibiotic agents; Z91.041 Radiographic dye allergy status; Z90.49 Acquired absence of other specified parts of digestive tract; Z90.710 Acquired absence of both cervix and uterus; Z90.81 Acquired absence of spleen; Z83.3 Family history of diabetes mellitus
CPT/HCPCS: 36415; 36416; 80053; 83036; 84484; 85025; 88305; J1200; J1642; J1815; J2250; J2270; J2550; J7042

== ENCOUNTER 2023-03-22 09:38 | Day surgery (SDC) | payer OTHER, MEDICAID ==
[2023-03-21 16:12] VITALS: BMI 19.2
[2023-03-22 12:27] LABS: #Basophils 0.1 thou/uL (0.0-0.2); #Eosinphils 0.1 thou/uL (0.0-0.7); #Monocytes 0.8 thou/uL (0.11-0.59); #Neutrophils 4.8 thou/uL (1.40-6.50); %Basophils 0.7 % (0.0-1.0); %Eosinophils 0.7 % (0.0-10.0); %Lymphocytes 30.3 % (21.0-51.0); %Monocytes 9.8 % (0.0-10.0); %Neutrophils 58.3 % (42.0-75.0); Hemoglobin 13.9 g/dL (12.0-16.0); Mean Corpuscular HGB CONC 31.7 g/dL (32.0-36.0); Mean Corpuscular Hemoglobin 28.6 pg (27.0-31.0); Mean Corpuscular Volume 90.3 fl (78.0-98.0); Mean Platelet Volume 11.3 fL (7.4-10.4); Platelet Count 326 10x3/uL (130-400); RBC Distribution Width 15.1 % (11.5-14.5); Red Blood Cell (RBC) Count 4.86 mill/uL (4.20-5.40); White Blood Cell (WBC) Count 8.2 10x3/uL (4.8-10.8)
[2023-03-22 12:52] LABS: ALT (SGPT) 44 U/L (8-55); AST (SGOT) 39 U/L (5-34); Albumin 3.7 g/dL (3.5-5.0); Alkaline Phosphatase 100 U/L (40-110); Anion Gap 13 mmol/L (10-20); BUN (Urea Nitrogen) 6 mg/dL (7.0-18.7); Bilirubin, Total 0.3 mg/dL (0.2-1.2); Calc. Creatinine Clearance 79 mL/min (70-130); Carbon Dioxide 21 mmol/L (22-29); Chloride 107 mmol/L (98-107); Estimated GFR 111; Globulin 2.9 g/dL (2.4-3.5); Glucose 135 mg/dL (70-105); Potassium 4.9 mmol/L (3.5-5.1); Protein, Total 6.6 g/dL (6.0-8.3); Sodium 136 mmol/L (136-145)
[2023-03-22] MEDS ORDERED: Lidocaine 2% PF 5 ML VIAL ONE (13:43)
[2023-03-22] MEDS ORDERED: Bupivacaine/Epinephrine 0.25% 30 ML VIAL ONE (13:43)
[2023-03-22] MEDS ORDERED: Levofloxacin 500 mg/D5W 100 ml Premix Bag ONE (13:53)
[2023-03-22] MEDS ORDERED: Clindamycin/D5W 900 mg/50 ml Premix Bag ONE (14:04)
[2023-03-22] MEDS ORDERED: fentaNYL PF 100 MCG/2 ML SYRINGE ONE (14:10)
[2023-03-22] MEDS ORDERED: Promethazine HCl 25 MG/ML VIAL ONE (15:11)
[2023-03-22] MEDS ORDERED: fentaNYL 50 mcg/mL 1 mL Vial ONE ×2 (15:11→15:20)
[2023-03-22] MEDS ORDERED: diphenhydrAMINE 50 MG/ML VIAL ONE (15:57)
== END 2023-03-22 16:05 | disposition home or self-care (01) ==
LOC: SDC 09:38
PROVIDERS: ATTEND Surgery
PROC: 0JPT0WZ Removal of Totally Implantable Vascular Access Device from Trunk Subcutaneous Tissue and Fascia, Open Approach (ICD-10-PCS; principal; 2023-03-22)
PROC: 0JH60WZ Insertion of Totally Implantable Vascular Access Device into Chest Subcutaneous Tissue and Fascia, Open Approach (ICD-10-PCS; 2023-03-22)
DX: T82.868A Thrombosis due to vascular prosthetic devices, implants and grafts, initial encounter (principal); E89.1 Postprocedural hypoinsulinemia; E13.9 Other specified diabetes mellitus without complications; Z79.4 Long term (current) use of insulin; Z79.899 Other long term (current) drug therapy; Z88.1 Allergy status to other antibiotic agents; Z88.5 Allergy status to narcotic agent; Z88.8 Allergy status to other drugs, medicaments and biological substances; Z91.041 Radiographic dye allergy status; Z90.410 Acquired total absence of pancreas; Z90.81 Acquired absence of spleen; Y81.3 Surgical instruments, materials and general- and plastic-surgery devices (including sutures) associated with adverse incidents
CPT/HCPCS: 36582; 71045; 80053; 82962; 85025; 93005; J3010; 36416; 93010; C1788; J1200; J1642; J1956; J2001; J2550; J3490